=== PATIENT | female | born 1965 ===

== ENCOUNTER 2016-09-27 19:11 | Emergency (ER) | payer OTHER ==
[2016-09-27 19:11] VITALS: BMI 25.7
[2016-09-27 19:24] VITALS: RESP 18
[2016-09-27] MEDS ORDERED: Albuterol-Ipratrop 3 mg / 0.5 (3 ml) UD ONE (19:44)
[2016-09-27] MEDS ORDERED: Promethazine/Cod 6.25mg-10mg/5ml Syr UD PO STA (19:52)
[2016-09-27] MEDS ORDERED: Promethazine/Cod 6.25mg-10mg/5ml Syr UD ONE (20:03)
[2016-09-27] MEDS: Albuterol-Ipratrop 3 mg / 0.5 (3 ml) UD IH SCH (20:06)
--- NOTE | 2016-09-27 20:18 | C.PDOC ---
History Of Present Illness 51 y/o female who complains of cough, pleuritic chest pain, sore throat, and body aches for the last three days. Today she complains of some dyspnea and chest tightness which is new and concerning to her. She denies any fever, chills , recent travel, sick contacts, or other complaints. Time Seen by Provider: 09/27/16 19:34 Chief Complaint (Nursing): Cough, Cold, Congestion History Per: Patient Onset/Duration Of Symptoms: Days (4) Current Symptoms Are (Timing): Worse Location Of Pain: Throat Sick Contacts (Context): None Associated Symptoms: Cough Severity: Moderate Recent travel outside of the [place]: No Additional History Per: Patient Past Medical History Vital Signs: Last Vital Signs Temp 99.3 F 09/27/16 20:42 Pulse 76 09/27/16 20:42 Resp 18 09/27/16 20:42 BP 97/54 L 09/27/16 20:42 Pulse Ox 96 09/27/16 21:06 - Medical History PMH: CAD (with pacemaker), Cardia Arrhythmia, CHF, HTN, Pneumonia Denies: Chronic Kidney Disease Surgical History: Pacemaker, - [facility] Procedures EXCISION OF DUODENUM, ENDO, DIAGN (08/07/15) EXCISION OF STOMACH, ENDO, DIAGN (08/07/15) INSPECTION OF LOWER INTESTINAL TRACT, ENDO (08/07/15) MEASURE OF CARDIAC SAMPL & PRESSURE, L HEART, PERC APPROACH (11/27/15) PLAIN RADIOGRAPHY OF LEFT HEART USING OTHER CONTRAST (11/27/15) PLAIN RADIOGRAPHY OF MULT COR ART USING OTH CONTRAST (11/27/15) Family History: States: Unknown Family Hx - Social History Hx Tobacco Use: No Hx Alcohol Use: No Hx Substance Use: No - Immunization History Hx Tetanus Toxoid Vaccination: No Hx Influenza Vaccination: Yes Hx Pneumococcal Vaccination: No Review Of Systems Except As Marked, All Systems Reviewed And Found Negative. Constitutional: Negative for: Fever, Chills ENT: Positive for: Throat Pain Cardiovascular: Positive for: Chest Pain Respiratory: Positive for: Cough, Shortness of Breath Musculoskeletal: Positive for: Other (myalgias) Physical Exam - Physical Exam Appears: Well, No Acute Distress Skin: Normal Color, Warm, Dry Eye(s): bilateral: Normal Inspection, PERRL, EOMI Nose: Normal Throat: Normal Neck: Normal Chest: No Tenderness Cardiovascular: Rhythm Regular Respiratory: Rhonchi, Wheezing (expiratory) Gastrointestinal/Abdominal: Normal Exam Back: Normal Inspection Extremity: Normal ROM ED Course And Treatment O2 Sat by Pulse Oximetry: 96 (RA) Pulse Ox Interpretation: Normal - Radiology CXR: Interpreted by Me, Viewed By Me CXR Interpretation: Yes: No Acute Disease. No: Infiltrates Reassessment Condition: Improved Medical Decision Making Medical Decision Making: Initial Plan: - Analgesia - CXR - Duo Neb x2 On reevaluation, the patient is resting comfortably and doing well, in NAD, lungs clear. Pt reports improvement of symptoms.. CXR reviewed and is unremarkable. Patient is medically stable for discharge. All questions answered to the patient's satisfaction. She should follow up with her PMD in the next few days, or return to the ED with any new/worsening concerns. Disposition Doctor Will See Patient In The: ED Counseled Patient/Family Regarding: Studies Performed, Diagnosis - Disposition Referrals: PMD, PMD [Other] Disposition: HOME/ ROUTINE Disposition Time: 21:02 Condition: STABLE Additional Instructions: Increase PO fluids Take all medications prescribed May take tylenol or advil for pain Follow up with PMD Return to ER if worse Prescriptions: Albuterol HFA [Ventolin HFA 90 mcg/actuation (8 g)] 2 puff IH [id number] #1 inh Azithromycin [Zithromax] 250 mg PO DAILY #6 tab Benzonatate [Tessalon Perles] 100 mg PO TID #20 sgl predniSONE [Prednisone] 40 mg PO DAILY #10 tab Instructions: Acute Bronchitis (ED) - Clinical Impression Clinical Impression: Bronchitis - Scribe Statement The provider has reviewed the documentation as recorded by the Scribe Kellen Crawford
[2016-09-27 20:43] VITALS: BP 97/54; PULSE 76; TEMP 99.3
[2016-09-27 20:51] VITALS: O2SAT 96
--- NOTE | 2016-09-28 10:37 | RAD ---
HISTORY: cough, chest pain COMPARISON: 04/04/2016 TECHNIQUE: Chest PA and lateral FINDINGS: LUNGS: Blunted bilateral costophrenic angles which may represent trace effusions and or mild pleural thickening. Clinical correlation. Mild venous congestion. Minimal atelectatic changes in the right midlung zone. PLEURA: As above. CARDIOVASCULAR: Left-sided pacemaker. Tortuous aorta. OSSEOUS STRUCTURES: No significant abnormalities. VISUALIZED UPPER ABDOMEN: Normal. OTHER FINDINGS: None. IMPRESSION: Blunted bilateral costophrenic angles which may represent trace effusions and or mild pleural thickening. Clinical correlation. Mild venous congestion. Minimal atelectatic changes in the right midlung zone.
== END 2016-09-27 21:12 | disposition home or self-care (01) ==
LOC: C.ER 19:11
DX: J40 Bronchitis, not specified as acute or chronic (principal)

== ENCOUNTER 2017-10-16 17:43 | Observation (INO) | payer OTHER ==
[2017-10-16 17:43] VITALS: BMI 33.1
[2017-10-16 18:42] LABS: BASO % 0.4 % (0.0-2.0); EOS # 0.1 K/uL (0.0-0.7); EOS % 2.3 % (0.0-4.0); HEMOGLOBIN 13.9 g/dL (11.0-16.0); LYMPH # 1.3 K/uL (1.0-4.3); LYMPH % 24.5 % (20.0-40.0); MEAN CELL VOLUME 90.3 fL (81.0-99.0); MEAN CORPUSCULAR HGB CONC 34.3 g/dL (33.0-37.0); MEAN PLATELET VOLUME 10.7 fL (7.2-11.7); MONO # 0.3 K/uL (0.0-0.8); MONO % 5.8 % (0.0-10.0); NEUT # 3.6 K/uL (1.8-7.0); NRBC % 0.1 % (0.0-2.0); RBC 4.48 Mil/uL (3.80-5.20); RED CELL DISTRIBUTION WIDTH 13.8 % (11.5-14.5); WHITE BLOOD COUNT 5.4 K/uL (4.8-10.8)
[2017-10-16 18:51] LABS: PROTHROMBIN TIME 11.2 SECONDS (9.7-12.2)
[2017-10-16 18:54] LABS: SQUAMOUS EPITHIAL 1 /hpf (0-5); URINE BACTERIA OCC (<OCC); URINE BILIRUBIN NEGATIVE (NEGATIVE); URINE BLOOD NEGATIVE (NEGATIVE); URINE CLARITY Clear (Clear); URINE COLOR Colorless (YELLOW); URINE GLUCOSE (UA) NORMAL (Normal); URINE LEUKOCYTE ESTERASE 1+ Leu/uL (Negative); URINE PROTEIN NEGATIVE (NEGATIVE); URINE UROBILINOGEN NORMAL mg/dL (0.2-1.0)
[2017-10-16 18:55] LABS: HCG,QUALITATIVE URINE NEGATIVE (NEGATIVE)
[2017-10-16 18:56] LABS: ALB/GLOB RATIO 1.2 (1.0-2.1); ALBUMIN 3.9 g/dL (3.5-5.0); ALT/SGPT 30 U/L (9-52); AST/SGOT 36 U/L (14-36); BLOOD UREA NITROGEN 13 mg/dL (7-17); CALCIUM 9.4 mg/dl (8.6-10.4); GFR AFRICAN-AMERICAN > 60; GFR NON-AFRICAN AMERICAN > 60
[2017-10-16 19:07] LABS: B-TYPE NATRIURETIC PEPTIDE 617 pg/mL (0-900)
--- NOTE | 2017-10-16 20:27 | C.PDOC ---
History Of Present Illness 52 y/o female with history of HTN and CAD presents to ED with c/o mid sternal pressure chest pain and mild headache developed earlier today. Patient denies sob, palpitations, nausea, leg swelling, vision changes or any other complaints at this time. Time Seen by Provider: 10/16/17 18:05 Chief Complaint (Nursing): Chest Pain History Per: Patient History/Exam Limitations: no limitations Onset/Duration Of Symptoms: Days Current Symptoms Are (Timing): Still Present Quality: "Pain" Past Medical History Reviewed: Historical Data, Nursing Documentation, Vital Signs Vital Signs: Last Vital Signs Temp 97.9 F 10/18/17 15:55 Pulse 65 10/18/17 17:22 Resp 20 10/18/17 15:55 BP 107/72 10/18/17 17:22 Pulse Ox 98 10/18/17 17:06 - Medical History PMH: CAD (with pacemaker), Cardia Arrhythmia, CHF, HTN, Pneumonia Surgical History: Pacemaker, - [facility] Procedures EXCISION OF DUODENUM, ENDO, DIAGN (08/07/15) EXCISION OF STOMACH, ENDO, DIAGN (08/07/15) INSPECTION OF LOWER INTESTINAL TRACT, ENDO (08/07/15) MEASURE OF CARDIAC SAMPL & PRESSURE, L HEART, PERC APPROACH (11/27/15) PLAIN RADIOGRAPHY OF LEFT HEART USING OTHER CONTRAST (11/27/15) PLAIN RADIOGRAPHY OF MULT COR ART USING OTH CONTRAST (11/27/15) Family History: States: No Known Family Hx - Social History Hx Tobacco Use: No Hx Alcohol Use: No Hx Substance Use: No - Immunization History Hx Tetanus Toxoid Vaccination: No Hx Influenza Vaccination: Yes Hx Pneumococcal Vaccination: No Review Of Systems Constitutional: Negative for: Fever, Chills Cardiovascular: Positive for: Chest Pain. Negative for: Palpitations, Light Headedness Respiratory: Negative for: Cough, Shortness of Breath Gastrointestinal: Negative for: Nausea, Vomiting Skin: Negative for: Rash Neurological: Negative for: Weakness, Numbness Physical Exam - Physical Exam Appears: Non-toxic, No Acute Distress Skin: Warm, Dry, No Rash Head: Atraumatic, Normacephalic Eye(s): bilateral: Normal Inspection Oral Mucosa: Moist Neck: Normal ROM, Supple Cardiovascular: Rhythm Regular Respiratory: Normal Breath Sounds, No Rales, No Rhonchi, No Wheezing Gastrointestinal/Abdominal: Soft, No Tenderness, No Guarding, No Rebound Extremity: Normal ROM, No Pedal Edema, Capillary Refill (<2 seconds) Neurological/Psych: Oriented x3, Normal Speech, Normal Cognition ED Course And Treatment - Laboratory Results Result Diagrams: 10/18/17 07:40 10/18/17 07:40 O2 Sat by Pulse Oximetry: 96 (RA) Pulse Ox Interpretation: Normal Medical Decision Making Medical Decision Making: cp r/o acs- labs imaging pending trop neg. pain impreved s/p asa. typical pain. h/o of cad. discussed with dr boles accepts for admission Disposition - Disposition Disposition: HOSPITALIZED Disposition Time: 07:00 Condition: GOOD - Clinical Impression Clinical Impression: Chest pain - Scribe Statement The provider has reviewed the documentation as recorded by the Scribe Jason Silva All medical record entries made by the Scribe were at my direction and personally dictated by me. I have reviewed the chart and agree that the record accurately reflects my personal performance of the history, physical exam, medical decision making, and the department course for this patient. I have also personally directed, reviewed, and agree with the discharge instructions and disposition. Decision To Admit - Pt Status Changed To: Hospital Disposition Of: Observation - . Bed Request Type: Telemetry Admitting Physician: Kendell Boles Patient Diagnosis: Chest pain
--- NOTE | 2017-10-16 22:42 | CP.PCM.HP ---
History of Present Illness - History of Present Illness History of Present Illness: This is a 52 yo female, originally from [facility], with past medical hx of CAD, HTN, AICD/pacemaker, lupus, [place], lupus nephritis, presenting to hospital with chief complaint of chest pain. Pt is accompanied by daughter. Pt says she started to develop chest pain at 10 am this morning. She was lying in bed. It is a pressure sensation, 6/10. At about 3 30 , she also started to feel dizzy and pain was getting worse so she came to ER. Denies fevers and chills. Says pain is substernal. Says it happened before this past sunday with some radiation to left arm, but went away after 10 minutes. Today the pain has been constant. She did not take anything for it at home, but she says asa in the ER made it better. The pain happened at rest and with exertion. She says it is not reproducible. She also reports some sob and says she feels sob after walking only 1/2 block. She reports recent cardiac cath and stress test. She also reports headache. She denies sick contacts. She denies recent travel. PMD: [place] Specialists: Cardiology: Mike Patel PMH: HTN, CAD, lupus, cardiac arrhythmia PSH: AICD/pacemaker, C section Allergies: NKDA FH: Denies Home meds: asa 81 mg po daily, enalapril 5 mg po daily, cellcept, plavix 75 mg po daily, coreg 25 mg po bid, pepcid 20 mg po daily, lasix 40 mg po daily Social hx: Non smoker. Does not drink. Denies drug use. Born in [facility]. Lives in [place]. Does not work. Fully mobile and able to complete all ADLs. Insurance: [facility] Recent ER visits/hospitalizations: Seen in September 2016 in ER for acute bronchitis and discharged home. Present on Admission - Present on Admission Any Indicators Present on Admission: No History of DVT/PE: No History of Uncontrolled Diabetes: No Urinary Catheter: No Decubitus Ulcer Present: No Review of Systems - Constitutional Constitutional: absent: Chills, Fever - EENT Eyes: absent: Blurred Vision, Change in Vision Nose/Mouth/Throat: absent: Sore Throat, Neck Pain - Cardiovascular Cardiovascular: Chest Pain, Chest Pain at Rest, Dyspnea - Respiratory Respiratory: Dyspnea, Dyspnea on Exertion. absent: Cough - Gastrointestinal Gastrointestinal: Nausea. absent: Abdominal Pain, Vomiting - Genitourinary Genitourinary: absent: Change in Urinary Stream, Difficulty Urinating - Musculoskeletal Musculoskeletal: Arthralgias. absent: Numbness, Tingling - Integumentary Integumentary: absent: Bleeding Lesions, Changing Lesions - Neurological Neurological: Dizziness, Headaches. absent: Syncope - Psychiatric Psychiatric: absent: Hallucinations, Visual Hallucinations - Endocrine Endocrine: absent: Palpitations - Hematologic/Lymphatic Hematologic: absent: Easy Bleeding, Easy Bruising Past Patient History - Infectious Disease Hx of Infectious Diseases: None - Tetanus Immunizations Tetanus Immunization: Unknown - Past Medical History & Family History Past Medical History?: Yes - Past Social History Smoking Status: Never Smoked Chewing Tobacco Use: No Cigar Use: No Alcohol: None Drugs: Denies Home Situation {Lives}: With Family Domestic Violence: Negative - CARDIAC Hx Cardia Arrhythmia: Yes Hx Congestive Heart Failure: Yes Hx Hypertension: Yes Hx Pacemaker: Yes - PULMONARY Hx Pneumonia: Yes - NEUROLOGICAL Hx Neurological Disorder: No - HEENT Hx HEENT Problems: No - RENAL Hx Chronic Kidney Disease: No - ENDOCRINE/METABOLIC Hx Systemic Lupus Erythematosus: Yes (diag 5 yrs ago) - HEMATOLOGICAL/ONCOLOGICAL Hx Blood Disorders: No - INTEGUMENTARY Hx Dermatological Problems: No - MUSCULOSKELETAL/RHEUMATOLOGICAL Hx Falls: No - GASTROINTESTINAL Hx Gastrointestinal Disorders: No - GENITOURINARY/GYNECOLOGICAL Hx Genitourinary Disorders: No - PSYCHIATRIC Hx Substance Use: No - SURGICAL HISTORY Hx Surgeries: Yes () Hx Section: Yes - ANESTHESIA Hx Anesthesia: Yes Hx Anesthesia Reactions: No Meds Allergies/Adverse Reactions: Allergies Allergy/AdvReac Type Severity Reaction Status Date / Time No Known Allergies Allergy Verified 10/16/17 17:48 Physical Exam - Constitutional Appears: Non-toxic, No Acute Distress - Head Exam Head Exam: ATRAUMATIC, NORMAL INSPECTION, NORMOCEPHALIC - Eye Exam Eye Exam: EOMI - ENT Exam ENT Exam: Mucous Membranes Moist - Neck Exam Neck exam: Positive for: Full Rom, Normal Inspection - Respiratory Exam Respiratory Exam: NORMAL BREATHING PATTERN. absent: Respiratory Distress - Cardiovascular Exam Cardiovascular Exam: REGULAR RHYTHM, +S1, +S2 - GI/Abdominal Exam GI & Abdominal Exam: Normal Bowel Sounds, Soft. absent: Tenderness - Extremities Exam Extremities exam: Positive for: full ROM, normal inspection - Back Exam Back exam: NORMAL INSPECTION - Neurological Exam Neurological exam: Alert, CN II-XII Intact, Oriented x3 - Psychiatric Exam Psychiatric exam: Normal Affect, Normal Mood - Skin Skin Exam: Dry, Intact, Normal Color, Warm Results - Vital Signs Recent Vital Signs: Last Vital Signs Temp 98.2 F 10/16/17 19:43 Pulse 59 L 10/16/17 19:43 Resp 20 10/16/17 19:43 BP 117/82 10/16/17 19:43 Pulse Ox 96 10/16/17 20:27 - Labs Result Diagrams: 10/16/17 18:38 10/16/17 18:38 Labs: Laboratory Results - last 24 hr 10/16/17 10/16/17 10/16/17 18:38 18:38 18:38 WBC 5.4 RBC 4.48 Hgb 13.9 Hct 40.5 MCV 90.3 D MCH 31.0 MCHC 34.3 RDW 13.8 Plt Count 183 MPV 10.7 Neut % (Auto) 67.0 Lymph % (Auto) 24.5 [place] % (Auto) 5.8 Eos % (Auto) 2.3 Baso % (Auto) 0.4 Neut # (Auto) 3.6 Lymph # (Auto) 1.3 [place] # (Auto) 0.3 Eos # (Auto) 0.1 Baso # (Auto) 0.0 PT 11.2 INR 1.0 APTT 38 H Sodium 144 Potassium 3.9 Chloride 104 Carbon Dioxide 26 Anion Gap 17 BUN 13 Creatinine 0.8 Est GFR ( Amer) > 60 Est GFR (Non-Af Amer) > 60 Random Glucose 102 Calcium 9.4 Total Bilirubin 1.0 AST 36 D ALT 30 Alkaline Phosphatase 62 Troponin I < 0.0120 NT-Pro-B Natriuret Pep 617 Total Protein 7.2 Albumin 3.9 Globulin 3.4 Albumin/Globulin Ratio 1.2 Urine Color Urine Clarity Urine pH Ur Specific [place] Urine Protein Urine Glucose (UA) Urine Ketones Urine Blood Urine Nitrate Urine Bilirubin Urine Urobilinogen Ur Leukocyte Esterase Urine WBC (Auto) Urine RBC (Auto) Ur Squamous Epith Cells Ur Transition Epith Cell Urine Bacteria Urine HCG, Qual 10/16/17 18:45 WBC RBC Hgb Hct MCV MCH MCHC RDW Plt Count MPV Neut % (Auto) Lymph % (Auto) [place] % (Auto) Eos % (Auto) Baso % (Auto) Neut # (Auto) Lymph # (Auto) [place] # (Auto) Eos # (Auto) Baso # (Auto) PT INR APTT Sodium Potassium Chloride Carbon Dioxide Anion Gap BUN Creatinine Est GFR ( Amer) Est GFR (Non-Af Amer) Random Glucose Calcium Total Bilirubin AST ALT Alkaline Phosphatase Troponin I NT-Pro-B Natriuret Pep Total Protein Albumin Globulin Albumin/Globulin Ratio Urine Color Colorless Urine Clarity Clear Urine pH 6.0 Ur Specific [place] 1.001 L Urine Protein Negative Urine Glucose (UA) Normal Urine Ketones Negative Urine Blood Negative Urine Nitrate Negative Urine Bilirubin Negative Urine Urobilinogen Normal Ur Leukocyte Esterase 1+ H Urine WBC (Auto) 7 H Urine RBC (Auto) < 1 Ur Squamous Epith Cells 1 Ur Transition Epith Cell < 1 Urine Bacteria Occ H Urine HCG, Qual Negative Assessment & Plan - Assessment and Plan (Free Text) Assessment: This is a 52 yo female, originally from [facility], with past medical hx of HTN, CAD presenting with 1. Chest pain, r/o ACS -pt condition: fair -admit to telemetry -initial ekg shows sinus rhythm with some ischemic changes, flipped t waves, no st elevations -CXR shows AICD in place -trops x 3 -1st set negative -coreg 25 mg po bid -heart healthy diet -crestor 5 mg po hs -cardiology consult. Dr. Chang. receusebio appreciated. -urine hcg negative -urine drug screen negative -cath in 2016 showed chronic total occlusion of mid LAD 2. Dizziness -head ct pending -zofran 4 mg iv stat -meclizine 25 mg po daily prn dizziness 3. hx of lupus -hold home cellcept 4. hx of htn -restart enalapril 5 mg po daily 5. headache -tylenol 650 mg po q 6 hrs prn headache 6. GI/DVT ppx -heart healthy diet -pepcid 20 mg bid -scds -discussed with Dr. Arriaga
[2017-10-17 01:35] LABS: CK-MB 0.62 ng/mL (0.0-3.38)
[2017-10-17 07:45] LABS: BASO % 0.4 % (0.0-2.0); EOS # 0.1 K/uL (0.0-0.7); EOS % 3.4 % (0.0-4.0); HEMOGLOBIN 13.6 g/dL (11.0-16.0); LYMPH # 1.3 K/uL (1.0-4.3); LYMPH % 30.2 % (20.0-40.0); MEAN CELL VOLUME 90.5 fL (81.0-99.0); MEAN CORPUSCULAR HEMOGLOBIN 31.2 pg (27.0-31.0); MEAN CORPUSCULAR HGB CONC 34.5 g/dL (33.0-37.0); MEAN PLATELET VOLUME 10.5 fL (7.2-11.7); MONO # 0.3 K/uL (0.0-0.8); MONO % 6.9 % (0.0-10.0); NEUT # 2.5 K/uL (1.8-7.0); NEUT % 59.1 % (50.0-75.0); NRBC % 0.1 % (0.0-2.0); RBC 4.34 Mil/uL (3.80-5.20); RED CELL DISTRIBUTION WIDTH 13.6 % (11.5-14.5); WHITE BLOOD COUNT 4.3 K/uL (4.8-10.8)
--- NOTE | 2017-10-17 07:57 | CP.PCM.PN ---
<Jennifer Cohn - Last Filed: 10/17/17 11:47> Subjective - Date & Time of Evaluation Date of Evaluation: 10/17/17 Time of Evaluation: 09:00 - Subjective Subjective: Medicine Note for Hospitalist Service - Dr. Talat Christensen Patient was seen and examined at bedside. Patient reported her chest pain has resolved. Admitted to a headache. Denied fever, chills, chest pain, SOB, abdominal pain, n/v/d/c, or urinary symptoms. Objective - Vital Signs/Intake and Output Vital Signs (last 24 hours): Temp Pulse Resp BP Pulse Ox 97.7 F 64 20 123/82 98 10/16/17 23:20 10/17/17 04:36 10/16/17 23:20 10/16/17 23:20 10/16/17 23:20 Intake and Output: 10/17/17 10/17/17 06:59 18:59 Intake Total 120 Balance 120 - Medications Medications: Current Medications Acetaminophen (Tylenol 325mg Tab) 650 mg PO Q6 PRN PRN Reason: Headache Last Admin: 10/17/17 00:00 Dose: 650 mg Aspirin (Ecotrin) 81 mg PO DAILY LINN Carvedilol (Coreg) 25 mg PO BID [facility] Clopidogrel Bisulfate (Plavix) 75 mg PO DAILY [facility] Enalapril Maleate (Vasotec) 5 mg PO DAILY [facility] Enoxaparin Sodium (Lovenox) 40 mg SC DAILY [facility] Famotidine (Pepcid) 20 mg PO BID [facility] Furosemide (Lasix) 40 mg PO DAILY [facility] Meclizine HCl (Antivert) 12.5 mg PO DAILY PRN PRN Reason: Dizziness Last Admin: 10/16/17 22:11 Dose: 12.5 mg Rosuvastatin Calcium (Crestor) 10 mg PO HS LINN - Labs Labs: 10/17/17 07:23 10/16/17 18:38 PT 11.2 SECONDS (9.7-12.2) 10/16/17 18:38 INR 1.0 10/16/17 18:38 APTT 38 SECONDS (21-34) H 10/16/17 18:38 - Constitutional Appears: No Acute Distress - Head Exam Head Exam: NORMAL INSPECTION, NORMOCEPHALIC - Eye Exam Eye Exam: EOMI, Normal appearance, PERRL. absent: Nystagmus, Scleral icterus Pupil Exam: NORMAL ACCOMODATION - ENT Exam ENT Exam: Mucous Membranes Moist - Neck Exam Neck Exam: Normal Inspection - Respiratory Exam Respiratory Exam: Clear to Ausculation Bilateral, NORMAL BREATHING PATTERN. absent: Decreased Breath Sounds, Wheezes - Cardiovascular Exam Cardiovascular Exam: REGULAR RHYTHM - GI/Abdominal Exam GI & Abdominal Exam: Soft, Normal Bowel Sounds. absent: Distended, Tenderness - Extremities Exam Extremities Exam: Normal Inspection. absent: Pedal Edema, Tenderness - Neurological Exam Neurological Exam: Alert, Awake, Oriented x3 - Psychiatric Exam Psychiatric exam: Normal Affect, Normal Mood - Skin Skin Exam: Dry, Intact, Normal Color, Warm Assessment and Plan - Assessment and Plan (Free Text) Assessment: This is a 52 year old female with PMHx SLE with lupus nephritis, HTN, History NSTEMI, History of CAD with 100% occlusion of LAD - was not a candidate for CABG, Systolic Heart Failure with ?? LVEF s/p AICD 03/2016 admitted for chest pain r/o ACS. Patient follows up with [facility] for Transportation Supervisor appointment in October. Last follow up with 06/2017 where she had an ECHO done was has been unchanged since previous study as per patient. Plan: Chest Pain r/o ACS History of Systolic Heart Failure s/p AICD (03/2016) Hx NSTEMI;; History of CAD with 100% occlusion of LAD - was not a candidate for CABG (11/2015) - Cardiology consulted - Dr. Chang - help appreciated - Patient reports recent dyspnea on exertion, orthopnea, and generalized fatigue - CXR: Cardiomegaly - EKG: Sinus kianna @56BPM with no [place] prolongation - DRU x 3 negative - BNP: 617 Management: - Resumed home medications: ASA, Plavix, Coreg 25 BID, Vasotec 5 daily, Lasix 40mg daily, Crestor 10mg QHS - 02/2016 ECHO: LVEF 35-40%, LV moderately dilated, LV systolic function is severely impaired - As per patient she had an ECHO 06/2017 with Transportation Supervisor from [facility] - unchanged from previous ECHO - F/U Repeat ECHO Hx Hypertension - Resumed home medications: ASA, Plavix, Coreg 25 BID, Vasotec 5 daily, Lasix 40mg daily, Crestor 10mg QHS - HgA1C 5.6, Lipid panel - WNL Hx SLE with lupus nephritis - Currently not on any steroids, denied any recent flares - Follows closely with Dr. Patel next appointment is in October 2017 Prophylactic measures - Pepcid - Lovenox Disposition: Pending ECHO and cardiology reccs. DW Dr. Talat Christensen, Jennifer Cohn DO, PGY-1 <Talat Christensen J - Last Filed: 10/17/17 18:59> Objective - Vital Signs/Intake and Output Vital Signs (last 24 hours): Temp Pulse Resp BP Pulse Ox 98 F 53 L 18 90/60 L 99 10/17/17 15:52 10/17/17 15:52 10/17/17 15:52 10/17/17 15:52 10/17/17 15:52 Intake and Output: 10/17/17 10/17/17 06:59 18:59 Intake Total 120 Balance 120 - Medications Medications: Current Medications Acetaminophen (Tylenol 325mg Tab) 650 mg PO Q6 PRN PRN Reason: Pain, Mild (1-3) Acetaminophen/Butalbital/Caffeine (Fioricet) 1 tab PO Q6 PRN PRN Reason: Headache Aspirin (Ecotrin) 81 mg PO DAILY [facility] Last Admin: 10/17/17 10:22 Dose: 81 mg Carvedilol (Coreg) 25 mg PO BID [facility] Last Admin: 10/17/17 10:18 Dose: 25 mg Clopidogrel Bisulfate (Plavix) 75 mg PO DAILY [facility] Last Admin: 10/17/17 10:19 Dose: 75 mg Enalapril Maleate (Vasotec) 5 mg PO DAILY [facility] Last Admin: 10/17/17 10:18 Dose: 5 mg Enoxaparin Sodium (Lovenox) 40 mg SC DAILY [facility] Last Admin: 10/17/17 10:20 Dose: 40 mg Famotidine (Pepcid) 20 mg PO BID [facility] Furosemide (Lasix) 40 mg IVP DAILY [facility] Last Admin: 10/17/17 10:19 Dose: 40 mg Rosuvastatin Calcium (Crestor) 10 mg PO HS [facility] - Labs Labs: 10/17/17 07:23 10/17/17 07:23 PT 11.2 SECONDS (9.7-12.2) 10/16/17 18:38 INR 1.0 10/16/17 18:38 APTT 38 SECONDS (21-34) H 10/16/17 18:38 Attending/Attestation - Attestation I have personally seen and examined this patient.: Yes I have fully participated in the care of the patient.: Yes I have reviewed all pertinent clinical information, including history, physical exam and plan: Yes Notes (Text): 10/17/17 18:59 Patient was seen and examined at 2:30 PM Exam, assessment and plan were gone over with the resident. She is for LexiScan Stress Test in morning 10/18/17. NPO after midnight. Talat Christensen D.O.
[2017-10-17 08:13] LABS: ALB/GLOB RATIO 1.2 (1.0-2.1); ALBUMIN 3.9 g/dL (3.5-5.0); ALT/SGPT 22 U/L (9-52); AST/SGOT 31 U/L (14-36); BLOOD UREA NITROGEN 10 mg/dL (7-17); GFR AFRICAN-AMERICAN > 60; GFR NON-AFRICAN AMERICAN > 60; HDL CHOLESTEROL 33 mg/dL (30-70); LDL CHOLESTEROL 93 mg/dL (0-129)
--- NOTE | 2017-10-17 08:18 | CT ---
PROCEDURE: CT HEAD WITHOUT CONTRAST. HISTORY: dizziness COMPARISON: 08/05/2015 TECHNIQUE: Axial computed tomography images were obtained through the head/brain without intravenous contrast. Radiation dose: Total exam DLP = 748.48 mGy-cm. This CT exam was performed using one or more of the following dose reduction techniques: Automated exposure control, adjustment of the mA and/or kV according to patient size, and/or use of iterative reconstruction technique. FINDINGS: HEMORRHAGE: No intracranial hemorrhage. BRAIN: No mass effect or edema. No atrophy or chronic microvascular ischemic changes. VENTRICLES: Unremarkable. No hydrocephalus. CALVARIUM: Unremarkable. PARANASAL SINUSES: Unremarkable as visualized. No significant inflammatory changes. MASTOID AIR CELLS: Unremarkable as visualized. No inflammatory changes. OTHER FINDINGS: None. IMPRESSION: Normal CT of the Head. No intracranial mass, hemorrhage or evidence of acute
[2017-10-17] MEDS ORDERED: Apap-Butalbital-Caffeine 325-50-40mg Tab PO STA (09:46)
--- NOTE | 2017-10-17 09:49 | RAD ---
PROCEDURE: CHEST RADIOGRAPH, 1 VIEW HISTORY: Chest pain COMPARISON: 09/27/2016. FINDINGS: LUNGS: The lungs are well inflated and clear. PLEURA: No pneumothorax or pleural fluid seen. CARDIOVASCULAR: The heart is normal in size. There is a left-sided AICD. OSSEOUS STRUCTURES: No significant abnormalities. VISUALIZED UPPER ABDOMEN: Normal. OTHER FINDINGS: None. IMPRESSION: No active pulmonary disease.
[2017-10-17] MEDS ORDERED: Enoxaparin 40 mg Syringe SC SCH (10:00)
[2017-10-17] MEDS ORDERED: Apap-Butalbital-Caffeine 325-50-40mg Tab PO PRN (11:52)
--- NOTE | 2017-10-17 16:55 | CARD ---
APPROVED REPORT EKG Measurement Heart [id number] <Conclusion> Sinus bradycardia Minimal voltage criteria for LVH, may be normal variant Possible Inferior infarct, age undetermined T wave abnormality, consider anterolateral ischemia Abnormal ECG
--- NOTE | 2017-10-17 16:56 | CARD ---
APPROVED REPORT EKG Measurement Heart [id number] <Conclusion> Sinus bradycardia Minimal voltage criteria for LVH, may be normal variant Inferior infarct, age undetermined Anterior infarct, age undetermined T wave abnormality, consider [place]-lateral ischemia Abnormal ECG
[2017-10-17 20:56] LABS: BARBITURATES, UR NEGATIVE (NEGATIVE); BENZODIAZEPINES, UR NEGATIVE (NEGATIVE); OPIATES, UR NEGATIVE (NEGATIVE); PHENCYCLIDINE, UR NEGATIVE (NEGATIVE)
[2017-10-18 01:03] VITALS: RESP 20
--- NOTE | 2017-10-18 04:57 | CP.PCM.CON ---
History of Present Illness - History of Present Illness History of Present Illness: CC: Chest Pain This is a 52 yo female, originally from [place] [facility], with past medical hx of CAD, HTN, AICD/pacemaker, lupus, [place], lupus nephritis, presenting to hospital with chief complaint of chest pain. Pt is accompanied by daughter. Pt says she started to develop chest pain at 10 am this morning. She was lying in bed. It is a pressure sensation, 6/10. At about 3 30 , she also started to feel dizzy and pain was getting worse so she came to ER. Denies fevers and chills. Says pain is substernal. Says it happened before this past sunday with some radiation to left arm, but went away after 10 minutes. Today the pain has been constant. She did not take anything for it at home, but she says asa in the ER made it better. The pain happened at rest and with exertion. She says it is not reproducible. She also reports some sob and says she feels sob after walking only 1/2 block. She reports recent cardiac cath and stress test. She also reports headache. She denies sick contacts. She denies recent travel. PMD: [place] Specialists: Cardiology: Mike Patel PMH: HTN, CAD, lupus, cardiac arrhythmia PSH: AICD/pacemaker, C section Allergies: NKDA FH: Denies Home meds: asa 81 mg po daily, enalapril 5 mg po daily, cellcept, plavix 75 mg po daily, coreg 25 mg po bid, pepcid 20 mg po daily, lasix 40 mg po daily Social hx: Non smoker. Does not drink. Denies drug use. Born in [facility]. Lives in [place]. Does not work. Fully mobile and able to complete all ADLs. Insurance: Lia care Recent ER visits/hospitalizations: Seen in September 2016 in ER for acute bronchitis and discharged home. Review of Systems - Constitutional Constitutional: absent: Chills, Fever - EENT Eyes: absent: Blurred Vision, Change in Vision Nose/Mouth/Throat: absent: Sore Throat, Neck Pain - Cardiovascular Cardiovascular: Chest Pain, Chest Pain at Rest, Dyspnea - Respiratory Respiratory: Dyspnea, Dyspnea on Exertion. absent: Cough - Gastrointestinal Gastrointestinal: Nausea. absent: Abdominal Pain, Vomiting - Genitourinary Genitourinary: absent: Change in Urinary Stream, Difficulty Urinating - Musculoskeletal Musculoskeletal: Arthralgias. absent: Numbness, Tingling - Integumentary Integumentary: absent: Bleeding Lesions, Changing Lesions - Neurological Neurological: Dizziness, Headaches. absent: Syncope - Psychiatric Psychiatric: absent: Hallucinations, Visual Hallucinations - Endocrine Endocrine: absent: Palpitations - Hematologic/Lymphatic Hematologic: absent: Easy Bleeding, Easy Bruising Physical Exam - Constitutional Appears: Non-toxic, No Acute Distress - Head Exam Head Exam: ATRAUMATIC, NORMAL INSPECTION, NORMOCEPHALIC - Eye Exam Eye Exam: EOMI - ENT Exam ENT Exam: Mucous Membranes Moist - Neck Exam Neck exam: Positive for: Full Rom, Normal Inspection - Respiratory Exam Respiratory Exam: NORMAL BREATHING PATTERN. absent: Respiratory Distress - Cardiovascular Exam Cardiovascular Exam: REGULAR RHYTHM, +S1, +S2 - GI/Abdominal Exam GI & Abdominal Exam: Normal Bowel Sounds, Soft. absent: Tenderness - Extremities Exam Extremities exam: Positive for: full ROM, normal inspection - Back Exam Back exam: NORMAL INSPECTION - Neurological Exam Neurological exam: Alert, CN II-XII Intact, Oriented x3 - Psychiatric Exam Psychiatric exam: Normal Affect, Normal Mood - Skin Skin Exam: Dry, Intact, Normal Color, Warm Past Patient History - Infectious Disease Hx of Infectious Diseases: None - Tetanus Immunizations Tetanus Immunization: Unknown - Past Medical History & Family History Past Medical History?: Yes - Past Social History Smoking Status: Never Smoked Chewing Tobacco Use: No Cigar Use: No Alcohol: None Drugs: Denies Home Situation {Lives}: With Family Domestic Violence: Negative - CARDIAC Hx Cardia Arrhythmia: Yes Hx Congestive Heart Failure: Yes Hx Hypertension: Yes Hx Pacemaker: Yes - PULMONARY Hx Pneumonia: Yes - NEUROLOGICAL Hx Neurological Disorder: No - HEENT Hx HEENT Problems: No - RENAL Hx Chronic Kidney Disease: No - ENDOCRINE/METABOLIC Hx Systemic Lupus Erythematosus: Yes (diag 5 yrs ago) - HEMATOLOGICAL/ONCOLOGICAL Hx Blood Disorders: No - INTEGUMENTARY Hx Dermatological Problems: No - MUSCULOSKELETAL/RHEUMATOLOGICAL Hx Falls: No - GASTROINTESTINAL Hx Gastrointestinal Disorders: No - GENITOURINARY/GYNECOLOGICAL Hx Genitourinary Disorders: No - PSYCHIATRIC Hx Substance Use: No - SURGICAL HISTORY Hx Surgeries: Yes () Hx Section: Yes - ANESTHESIA Hx Anesthesia: Yes Hx Anesthesia Reactions: No Meds Allergies/Adverse Reactions: Allergies Allergy/AdvReac Type Severity Reaction Status Date / Time No Known Allergies Allergy Verified 10/16/17 17:48 - Medications Medications: Current Medications Acetaminophen (Tylenol 325mg Tab) 650 mg PO Q6 PRN PRN Reason: Pain, Mild (1-3) Acetaminophen/Butalbital/Caffeine (Fioricet) 1 tab PO Q6 PRN PRN Reason: Headache Aspirin (Ecotrin) 81 mg PO DAILY [facility] Last Admin: 10/17/17 10:22 Dose: 81 mg Carvedilol (Coreg) 25 mg PO BID [facility] Last Admin: 10/17/17 18:00 Dose: Not Given Clopidogrel Bisulfate (Plavix) 75 mg PO DAILY [facility] Last Admin: 10/17/17 10:19 Dose: 75 mg Enalapril Maleate (Vasotec) 5 mg PO DAILY [facility] Last Admin: 10/17/17 10:18 Dose: 5 mg Enoxaparin Sodium (Lovenox) 40 mg SC DAILY [facility] Last Admin: 10/17/17 10:20 Dose: 40 mg Famotidine (Pepcid) 20 mg PO BID [facility] Furosemide (Lasix) 40 mg IVP DAILY [facility] Last Admin: 10/17/17 10:19 Dose: 40 mg Rosuvastatin Calcium (Crestor) 10 mg PO HS [facility] Last Admin: 10/17/17 21:45 Dose: 10 mg Results - Vital Signs Recent Vital Signs: Last Vital Signs Temp 98.6 F 10/17/17 23:20 Pulse 54 L 10/18/17 04:12 Resp 20 10/17/17 23:20 BP 98/64 L 10/17/17 23:20 Pulse Ox 98 10/17/17 23:20 - Labs Result Diagrams: 10/17/17 07:23 10/17/17 07:23 Labs: Laboratory Results - last 24 hr 10/17/17 10/17/17 10/17/17 07:23 07:23 07:23 WBC 4.3 L RBC 4.34 Hgb 13.6 Hct 39.3 MCV 90.5 MCH 31.2 H MCHC 34.5 RDW 13.6 Plt Count 158 MPV 10.5 Neut % (Auto) 59.1 Lymph % (Auto) 30.2 Ellis % (Auto) 6.9 Eos % (Auto) 3.4 Baso % (Auto) 0.4 Neut # (Auto) 2.5 Lymph # (Auto) 1.3 Ellis # (Auto) 0.3 Eos # (Auto) 0.1 Baso # (Auto) 0.0 Sodium 143 Potassium 3.8 Chloride 106 Carbon Dioxide 27 Anion Gap 14 BUN 10 Creatinine 0.8 Est GFR ( Amer) > 60 Est GFR (Non-Af Amer) > 60 Random Glucose 91 Calcium 9.0 Total Bilirubin 1.0 AST 31 ALT 22 Alkaline Phosphatase 59 Total Creatine Kinase 48 CK-MB (Mass) 0.40 Troponin I < 0.0120 Total Protein 7.1 Albumin 3.9 Globulin 3.2 Albumin/Globulin Ratio 1.2 Triglycerides 87 Cholesterol 155 LDL Cholesterol Direct 93 HDL Cholesterol 33 Urine Opiates Screen Urine Methadone Screen Ur Barbiturates Screen Ur Phencyclidine Scrn Ur Amphetamines Screen U Benzodiazepines Scrn U Oth Cocaine Metabols U Cannabinoids Screen 10/17/17 20:29 WBC RBC Hgb Hct MCV MCH MCHC RDW Plt Count MPV Neut % (Auto) Lymph % (Auto) Ellis % (Auto) Eos % (Auto) Baso % (Auto) Neut # (Auto) Lymph # (Auto) Ellis # (Auto) Eos # (Auto) Baso # (Auto) Sodium Potassium Chloride Carbon Dioxide Anion Gap BUN Creatinine Est GFR ( Amer) Est GFR (Non-Af Amer) Random Glucose Calcium Total Bilirubin AST ALT Alkaline Phosphatase Total Creatine Kinase CK-MB (Mass) Troponin I Total Protein Albumin Globulin Albumin/Globulin Ratio Triglycerides Cholesterol LDL Cholesterol Direct HDL Cholesterol Urine Opiates Screen Negative Urine Methadone Screen Negative Ur Barbiturates Screen Negative Ur Phencyclidine Scrn Negative Ur Amphetamines Screen Negative U Benzodiazepines Scrn Negative U Oth Cocaine Metabols Negative U Cannabinoids Screen Negative Assessment & Plan - Assessment and Plan (Free Text) Assessment: This is a 52 year old female with PMHx SLE with lupus nephritis, HTN, History NSTEMI, History of CAD with 100% occlusion of LAD - was not a candidate for CABG, Systolic Heart Failure with ?? LVEF s/p AICD 03/2016 admitted for chest pain r/o ACS. Patient follows up with [facility] for Room Service Supervisor appointment in October. Last follow up with 06/2017 where she had an ECHO done was has been unchanged since previous study as per patient. Plan: Chest Pain r/o ACS History of Systolic Heart Failure s/p AICD (03/2016) Hx NSTEMI;; History of CAD with 100% occlusion of LAD - was not a candidate for CABG (11/2015) - Patient reports recent dyspnea on exertion, orthopnea, and generalized fatigue - CXR: Cardiomegaly - EKG: Sinus kianna @56BPM with no AR prolongation - DRU x 3 negative - BNP: 617 Management: - Resumed home medications: ASA, Plavix, Coreg 25 BID, Vasotec 5 daily, Lasix 40mg daily, Crestor 10mg QHS - 02/2016 ECHO: LVEF 35-40%, LV moderately dilated, LV systolic function is severely impaired - As per patient she had an ECHO 06/2017 with Room Service Supervisor from [facility] - unchanged from previous ECHO - F/U Repeat ECHO Hx Hypertension - Resumed home medications: ASA, Plavix, Coreg 25 BID, Vasotec 5 daily, Lasix 40mg daily, Crestor 10mg QHS - HgA1C 5.6, Lipid panel - WNL Hx SLE with lupus nephritis - Currently not on any steroids, denied any recent flares - Follows closely with Dr. Patel next appointment is in October 2017 Prophylactic measures - Pepcid - Lovenox Patient scheduled for stress test in am
--- NOTE | 2017-10-18 07:13 | CARD ---
APPROVED REPORT EXAM: Two-dimensional and M-mode echocardiogram with Doppler and color Doppler. Other Information Quality : GoodRhythm : INDICATION Dyspnea Cardiac Disease: CAD RISK FACTORS Hypertension 2D DIMENSIONS IVSd0.8 (0.7-1.1cm)LVDd5.7 (3.9-5.9cm) PWd0.7 (0.7-1.1cm)LVDs4.7 (2.5-4.0cm) FS (%) 16.7 %LVEF (%)34.5 (>50%) M-Mode DIMENSIONS Left Atrium (MM)3.40 (2.5-4.0cm)Aortic Root3.06 (2.2-3.7cm) Aortic Cusp Exc.1.90 (1.5-2.0cm) Mitral Valve MV E Xllxwdkh28.8cm/sMV A Oqhgdcbe39.9cm/sE/A ratio0.8 TDI E/Lateral E'0.0E/Medial E'0.0 Tricuspid Valve TR Peak Kslkopjs877ox/sTR Peak Gr.[id number] LEFT VENTRICLE The Left Ventricle is moderately dilated. There is normal left ventricular wall thickness. Left ventricle systolic function is moderately to severely impaired. The Ejection Fraction is 30-35%. There is moderately to severe global hypokinesis of the left ventricle. Tissue Doppler imaging reveals abnormal left ventricular diastolic dysfunction. No left ventricle thrombus noted on this study. The apical aneurysm is moderate. RIGHT VENTRICLE The right ventricle is normal size. There is normal right ventricular wall thickness. Systolic function is moderately to severely reduced. ATRIA The left atrium size is normal. The right atrium size is normal. The interatrial septum is intact with no evidence for an atrial septal defect. AORTIC VALVE The aortic valve is normal in structure. No aortic regurgitation is present. There is no aortic valvular stenosis. There is no aortic valvular vegetation. MITRAL VALVE The mitral valve is normal in structure. There is no evidence of mitral valve prolapse. There is no mitral valve stenosis. Mitral regurgitation is mild. TRICUSPID VALVE The tricuspid valve is normal in structure. There is mild tricuspid regurgitation. Right ventricular systolic pressure is estimated at less than 30 mmHg. There is no pulmonary hypertension. PULMONIC VALVE The pulmonic valve is not well visualized. There is mild pulmonic valvular regurgitation. GREAT VESSELS The aortic root is normal in size. PERICARDIAL EFFUSION There is no significant pericardial effusion. <Conclusion> Left ventricle systolic function is moderately to severely impaired. Dyskinetic apex. The Ejection Fraction is 30-35%. Diastolic dysfunction. No aortic regurgitation is present. Mitral regurgitation is mild. There is mild tricuspid regurgitation. There is no pulmonary hypertension. There is mild pulmonic valvular regurgitation.
[2017-10-18] MEDS ORDERED: Bisacodyl 5mg EC Tab PO ONE (07:45)
[2017-10-18 08:02] LABS: BASO % 0.6 % (0.0-2.0); EOS # 0.1 K/uL (0.0-0.7); EOS % 3.4 % (0.0-4.0); HEMOGLOBIN 14.4 g/dL (11.0-16.0); LYMPH # 0.9 K/uL (1.0-4.3); LYMPH % 21.3 % (20.0-40.0); MEAN CELL VOLUME 90.7 fL (81.0-99.0); MEAN CORPUSCULAR HEMOGLOBIN 31.2 pg (27.0-31.0); MEAN CORPUSCULAR HGB CONC 34.3 g/dL (33.0-37.0); MEAN PLATELET VOLUME 10.7 fL (7.2-11.7); MONO # 0.3 K/uL (0.0-0.8); MONO % 7.1 % (0.0-10.0); NEUT # 2.8 K/uL (1.8-7.0); NEUT % 67.6 % (50.0-75.0); NRBC % 0.2 % (0.0-2.0); RBC 4.62 Mil/uL (3.80-5.20); RED CELL DISTRIBUTION WIDTH 13.7 % (11.5-14.5); WHITE BLOOD COUNT 4.2 K/uL (4.8-10.8)
[2017-10-18 08:20] LABS: ALB/GLOB RATIO 1.3 (1.0-2.1); ALBUMIN 4.3 g/dL (3.5-5.0); ALT/SGPT 29 U/L (9-52); AST/SGOT 32 U/L (14-36); BLOOD UREA NITROGEN 16 mg/dL (7-17); GFR AFRICAN-AMERICAN > 60; GFR NON-AFRICAN AMERICAN > 60
[2017-10-18 08:24] VITALS: TEMP 97.9
--- NOTE | 2017-10-18 15:28 | CP.PCM.DIS ---
Provider - Provider Date of Admission: 10/16/17 19:29 Attending physician: Talat Christensen MD Time Spent in preparation of Discharge (in minutes): 55 Hospital Course - Lab Results Lab Results: Most Recent Lab Values WBC 4.2 K/uL (4.8-10.8) L 10/18/17 07:40 RBC 4.62 Mil/uL (3.80-5.20) 10/18/17 07:40 Hgb 14.4 g/dL (11.0-16.0) 10/18/17 07:40 Hct 41.9 % (34.0-47.0) 10/18/17 07:40 MCV 90.7 fL (81.0-99.0) 10/18/17 07:40 MCH 31.2 pg (27.0-31.0) H 10/18/17 07:40 MCHC 34.3 g/dL (33.0-37.0) 10/18/17 07:40 RDW 13.7 % (11.5-14.5) 10/18/17 07:40 Plt Count 172 K/uL (130-400) 10/18/17 07:40 MPV 10.7 fL (7.2-11.7) 10/18/17 07:40 Neut % (Auto) 67.6 % (50.0-75.0) 10/18/17 07:40 Lymph % (Auto) 21.3 % (20.0-40.0) 10/18/17 07:40 Barren % (Auto) 7.1 % (0.0-10.0) 10/18/17 07:40 Eos % (Auto) 3.4 % (0.0-4.0) 10/18/17 07:40 Baso % (Auto) 0.6 % (0.0-2.0) 10/18/17 07:40 Neut # (Auto) 2.8 K/uL (1.8-7.0) 10/18/17 07:40 Lymph # (Auto) 0.9 K/uL (1.0-4.3) L 10/18/17 07:40 Barren # (Auto) 0.3 K/uL (0.0-0.8) 10/18/17 07:40 Eos # (Auto) 0.1 K/uL (0.0-0.7) 10/18/17 07:40 Baso # (Auto) 0.0 K/uL (0.0-0.2) 10/18/17 07:40 PT 11.2 SECONDS (9.7-12.2) 10/16/17 18:38 INR 1.0 10/16/17 18:38 APTT 38 SECONDS (21-34) H 10/16/17 18:38 Sodium 142 mmol/L (132-148) 10/18/17 07:40 Potassium 3.9 mmol/L (3.6-5.2) 10/18/17 07:40 Chloride 102 mmol/L (98-107) 10/18/17 07:40 Carbon Dioxide 30 mmol/L (22-30) 10/18/17 07:40 Anion Gap 15 (10-20) 10/18/17 07:40 BUN 16 mg/dL (7-17) 10/18/17 07:40 Creatinine 0.9 mg/dL (0.7-1.2) 10/18/17 07:40 Est GFR ( Amer) > 60 10/18/17 07:40 Est GFR (Non-Af Amer) > 60 10/18/17 07:40 Random Glucose 92 mg/dL (65-105) 10/18/17 07:40 Hemoglobin A1c 5.6 % (4.2-6.5) 10/17/17 01:01 Calcium 9.0 mg/dl (8.6-10.4) 10/18/17 07:40 Phosphorus 4.8 mg/dL (2.5-4.5) H 10/18/17 07:40 Magnesium 2.0 mg/dL (1.6-2.3) 10/18/17 07:40 Total Bilirubin 1.2 mg/dL (0.2-1.3) 10/18/17 07:40 AST 32 U/L (14-36) 10/18/17 07:40 ALT 29 U/L (9-52) 10/18/17 07:40 Alkaline Phosphatase 63 U/L (38-126) 10/18/17 07:40 Total Creatine Kinase 48 U/L (30-135) 10/17/17 07:23 CK-MB (Mass) 0.40 ng/mL (0.0-3.38) 10/17/17 07:23 Troponin I < 0.0120 ng/mL (0.00-0.120) 10/17/17 07:23 NT-Pro-B Natriuret Pep 617 pg/mL (0-900) 10/16/17 18:38 Total Protein 7.6 g/dL (6.3-8.3) 10/18/17 07:40 Albumin 4.3 g/dL (3.5-5.0) 10/18/17 07:40 Globulin 3.3 gm/dL (2.2-3.9) 10/18/17 07:40 Albumin/Globulin Ratio 1.3 (1.0-2.1) 10/18/17 07:40 Triglycerides 87 mg/dL (0-149) 10/17/17 07:23 Cholesterol 155 mg/dL (0-199) 10/17/17 07:23 LDL Cholesterol Direct 93 mg/dL (0-129) 10/17/17 07:23 HDL Cholesterol 33 mg/dL (30-70) 10/17/17 07:23 Free T4 1.21 ng/dL (0.78-2.19) 10/17/17 01:01 TSH 3rd Generation 4.50 mIU/L (0.46-4.68) 10/17/17 01:01 Urine Color Colorless (YELLOW) 10/16/17 18:45 Urine Clarity Clear (Clear) 10/16/17 18:45 Urine pH 6.0 (5.0-8.0) 10/16/17 18:45 Ur Specific [place] 1.001 (1.003-1.030) L 10/16/17 18:45 Urine Protein Negative mg/dL (NEGATIVE) 10/16/17 18:45 Urine Glucose (UA) Normal mg/dL (Normal) 10/16/17 18:45 Urine Ketones Negative mg/dL (NEGATIVE) 10/16/17 18:45 Urine Blood Negative (NEGATIVE) 10/16/17 18:45 Urine Nitrate Negative (NEGATIVE) 10/16/17 18:45 Urine Bilirubin Negative (NEGATIVE) 10/16/17 18:45 Urine Urobilinogen Normal mg/dL (0.2-1.0) 10/16/17 18:45 Ur Leukocyte Esterase 1+ Gonzalez/uL (Negative) H 05/29/18 18:45 Urine WBC (Auto) 7 /hpf (0-5) H 10/16/17 18:45 Urine RBC (Auto) < 1 /hpf (0-3) 10/16/17 18:45 Ur Squamous Epith Cells 1 /hpf (0-5) 10/16/17 18:45 Ur Transition Epith Cell < 1 /hpf (0-3) 10/16/17 18:45 Urine Bacteria Occ (<OCC) H 10/16/17 18:45 Urine HCG, Qual Negative (NEGATIVE) 10/16/17 18:45 Urine Opiates Screen Negative (NEGATIVE) 10/17/17 20:29 Urine Methadone Screen Negative (NEGATIVE) 10/17/17 20:29 Ur Barbiturates Screen Negative (NEGATIVE) 10/17/17 20:29 Ur Phencyclidine Scrn Negative (NEGATIVE) 10/17/17 20:29 Ur Amphetamines Screen Negative (NEGATIVE) 10/17/17 20:29 U Benzodiazepines Scrn Negative (NEGATIVE) 10/17/17 20:29 U Oth Cocaine Metabols Negative (NEGATIVE) 10/17/17 20:29 U Cannabinoids Screen Negative (NEGATIVE) 10/17/17 20:29 - Hospital Course Hospital Course: Upon Admission: This is a 52 yo female, originally from [facility], with past medical hx of CAD, HTN, AICD/pacemaker, lupus, [place], lupus nephritis, presenting to hospital with chief complaint of chest pain. Pt is accompanied by daughter. Pt says she started to develop chest pain at 10 am this morning. She was lying in bed. It is a pressure sensation, 6/10. At about 3 30 , she also started to feel dizzy and pain was getting worse so she came to ER. Denies fevers and chills. Says pain is substernal. Says it happened before this past sunday with some radiation to left arm, but went away after 10 minutes. Today the pain has been constant. She did not take anything for it at home, but she says asa in the ER made it better. The pain happened at rest and with exertion. She says it is not reproducible. She also reports some sob and says she feels sob after walking only 1/2 block. She reports recent cardiac cath and stress test. She also reports headache. She denies sick contacts. She denies recent travel. PMD: [place]/[facility] Specialists: Cardiology: Miek Hood- Jorge PMH: HTN, CAD, lupus, cardiac arrhythmia PSH: AICD/pacemaker, C section Allergies: NKDA FH: Denies Home meds: asa 81 mg po daily, enalapril 5 mg po daily, cellcept, plavix 75 mg po daily, coreg 25 mg po bid, pepcid 20 mg po daily, lasix 40 mg po daily Social hx: Non smoker. Does not drink. Denies drug use. Born in [facility]. Lives in [place]. Does not work. Fully mobile and able to complete all ADLs. Throughout Hospital Course: This is a 52 year old female with PMHx SLE with lupus nephritis, HTN, History NSTEMI, History of CAD with 100% occlusion of LAD - was not a candidate for CABG, Systolic Heart Failure with ?? LVEF s/p AICD 03/2016 admitted for chest pain r/o ACS. Patient follows up with [facility] for Pool Lifeguard appointment in October. Last follow up with 06/2017 where she had an ECHO done was has been unchanged since previous study as per patient. Plan: Chest Pain r/o ACS History of Systolic Heart Failure s/p AICD (03/2016) Hx NSTEMI;; History of CAD with 100% occlusion of LAD - was not a candidate for CABG (11/2015) - Cardiology consulted - Dr. Chang - help appreciated - Patient reports recent dyspnea on exertion, orthopnea, and generalized fatigue - CXR: Cardiomegaly - EKG: Sinus kianna @56BPM with no AL prolongation - DRU x 3 negative - BNP: 617 Management: - Resumed home medications: ASA, Plavix, Coreg 25 BID, Vasotec 5 daily, Lasix 40mg daily, Crestor 10mg QHS - 02/2016 ECHO: LVEF 35-40%, LV moderately dilated, LV systolic function is severely impaired - As per patient she had an ECHO 06/2017 with Pool Lifeguard from [facility] - unchanged from previous ECHO -Repeat ECHO: Mod/severe systolic dysfunction with EF 30-35%, mild TR - Lexiscan was reviewed by Dr. Chang - negative study she is cleared by Cardiology for discharge. She will be following with Dr. Mckeon within 1-2 weeks. Hx Hypertension - Resumed home medications: ASA, Plavix, Coreg 25 BID, Vasotec 5 daily, Lasix 40mg daily, Crestor 10mg QHS - HgA1C 5.6, Lipid panel - WNL Hx SLE with lupus nephritis - Currently not on any steroids, denied any recent flares - Follows closely with Dr. Patel next appointment is in October 26, 2017 Please review EMR for full record as this is a brief summary of the patient's hospital course. Discharge Exam - Additional Findings Additional findings: - Head Exam Head Exam: NORMAL INSPECTION, NORMOCEPHALIC - Eye Exam Eye Exam: EOMI, Normal appearance, PERRL. absent: Nystagmus, Scleral icterus Pupil Exam: NORMAL ACCOMODATION - ENT Exam ENT Exam: Mucous Membranes Moist - Neck Exam Neck Exam: Normal Inspection - Respiratory Exam Respiratory Exam: Clear to Ausculation Bilateral, NORMAL BREATHING PATTERN. absent: Decreased Breath Sounds, Wheezes - Cardiovascular Exam Cardiovascular Exam: REGULAR RHYTHM - GI/Abdominal Exam GI & Abdominal Exam: Soft, Normal Bowel Sounds. absent: Distended, Tenderness - Extremities Exam Extremities Exam: Normal Inspection. absent: Pedal Edema, Tenderness - Neurological Exam Neurological Exam: Alert, Awake, Oriented x3 - Psychiatric Exam Psychiatric exam: Normal Affect, Normal Mood - Skin Skin Exam: Dry, Intact, Normal Color, Warm Discharge Plan - Discharge Medications Prescriptions: Rosuvastatin Calcium [Crestor] 10 mg PO HS #30 tab - Follow Up Plan Condition: GOOD Disposition: HOME/ ROUTINE Instructions: Heart Failure, Adult, Heart Healthy Diet, Heart Failure, Adult ( DC), High Blood Pressure (DC), Chest Pain (DC), Rosuvastatin Additional Instructions: Please continue taking the following medications: ASA 81mg by mouth daily Plavix 75mg by mouth daily Coreg 25mg by mouth twice a day Vasotec 5 mg by mouth daily Lasix 40mg by mouth daily Pepcid 20mg by mouth twice a day Crestor 10mg by mouth at night with dinner Please continue with your scheduled appointment with Dr. Patel for your Lupus. Please arrange to see your Pool Lifeguard within 1-2 weeks. Since he is within our [employer] [facility] - he will be able to review the ECHO and Nuclear Stress Test that was done and reviewed by our Pool Lifeguard Dr. Chang. Please continue to have a salt free diet and restrict fluids LESS THAN 1.5 L per day. Please take care and be well. -- Por favor, contine tomando los siguientes medicamentos: ASA 81 mg por va oral todos los whatley Plavix 75mg por va oral diariamente Coreg 25 mg por va oral dos veces al da Vasotec 5 mg por va oral al da Lasix 40mg por va oral diariamente Pepcid 20mg por va oral dos veces al da Crestor 10 mg por la boca por la noche con la underwriting technician Contine con vela emilee programada con el Dr. Patel para vela Lupus. Chloe arreglos para maria teresa a vela cardilogo dentro de 1-2 semanas. Dado que est dentro de nuestro sistema [facility], podr revisar el ECHO y la prueba de esfuerzo nuclear que realiz y chiki nuestro cardilogo, el Dr. Chang. Por favor contine con daryl dieta hipolito de josé miguel y restrinja los lquidos MENOS DE 1.5 L por da. Por favor cudate y estate enoc. Referrals: Grey Patel MD [Staff Provider] -
[2017-10-18 17:16] VITALS: BP 107/72
[2017-10-18 17:22] VITALS: PULSE 65
--- NOTE | 2017-10-18 18:54 | CARD ---
APPROVED REPORT Protocol: PHARMACOLOGICAL STRESS Test Type: LEXISCAN Test Indications: CHEST PAIN Medications: LIST SCAN Medical History: CHEST PAIN,HX CAD WITH 100%OCCLUS Target HR: 169 bpm Resting ECG: nsr poor R-wave progression V1-V5 with Twave inversions in l Resting Heart Rate: 62 bpm Resting Blood Pressure: 118/70mmHg submaximum (85%): 144 bpm TEST SUMMARY [id number]:380.00..910044/70.0. INFUSIONDOSE 100:300.00.01.066/.0. [id number]:210.00..8000528/70.0. PROCEDURE Pharmacologic stress testing was performed using 0.4mg per 5ml of regadenoson given intravenously over 7-10 seconds. Reversal agent aminophyline 100 mg, given intravenously for Chest Pain. POST EXERCISE Reason for Termination: Protocol Completed Target HR: No Max HR: 66 bpm 63% of Maximum Predicted HR: 169 bpm Exercise duration: 00:30 min:sec, 0 Stage Exercise capacity: 1.0METs Max Blood Pressure: 130/70mmHg Blood Pressure response to exercise: normal resting BP - appropriate response Heart Rate response to exercise: appropriate Chest Pain: No, none Angina index: 0 Arrhythmia: No, none ST Change: Yes, IVCD OF LBBB PATTERN (ILBBB) Deviation: 0 mm INTERPRETATION Stress EKG Conclusion: NEGATIVE LEXISCAN STRESS TEST NORMAL BP RESPONSE TO LEXISCAN TRANSIENT ILBBB DURING RECOVERY PHASE NUCLEAR STUDIES TO BE READ SEPARATELY EXAM: Myocardial Perfusion STRESS/REST Imaging Protocol The imaging protocol used to acquire images was Stress Tc-99m/rest Tc-99m 1 day Rest Spect myocardial perfusion imaging was performed in supine position 45 minutes following the injection of 31.6 mCi of Tc-99 Myoview. Gated Stress Spect was performed 45 minutes after intravenous 12.8 mCi Tc-99 Myoview injection. The images were gated to evaluate regional wall motion and calculate ventricular ejection fraction.Images were reconstructed using backfilter projection method in short horizontal and verticle long axis. Spect slices were generated. RESTING DATA GLB291.88gePC9.60L/min1/3 Pk. Filling Rate0.46EDV/sec LV Time to Pk. Filling Icaz337.10msec TEZ461.00mlMyocardial Cujh500.00gLV Time to Pk. Ejection Fika046.68msec Pk. Fill Rate1.14EDV/secAv. Heart Rate61.00bpm EF30.00%Pk. Emptying Rate1.64ESV/sec STRESS DATA FAH785.86lgWT6.80L/min QES337.00mlMyocardial Lqya623.00g Pk. Fill Rate1.11EDV/sec EF32.00%Pk. Emptying Rate1.60ESV/sec 1/3 Pk. Filling Rate0.51EDV/secRegional WT score at stress:0.00 LV Time to Pk. Filling Rate:214.10msecRegional WM score at stress:2.00 LV Time to Pk. Ejection Rate:308.94msecSummed WT score at stress:35.00 Av. Heart Rate60.00bpmSummed WM score at stress:33.00 LV Perf. Quant 17 Seg. SSS29.00 17 Seg. SRS32.00 17 Seg. SDS0.00 Stress Defect Extent (% LAD)64.40Rest Defect Extent (% LAD)70.60Rev. Defect Extent (% LAD)0.00 Stress Defect Extent (% LCX)32.50Rest Defect Extent (% LCX)28.80Rev. Defect Extent (% LCX)7.50 Stress Defect Extent (% RCA)31.10Rest Defect Extent (% RCA)48.90Rev. Defect Extent (% RCA)0.00 Stress Defect Extent (% JERALD)50.40Rest Defect Extent (% JERALD)55.90Rev. Defect Extent (% JERALD)1.30 Other Information Quality:Good IMPRESSION Abnormal Myocardial Perfusion exercise stress study Left Ventricle LV Function:The Ejection Fraction is 25-35%. Conclusion 1. Large fixed anterior and apical defect suggestive of prior myocardial infarction. EF 32%. 2. No stress induced ischemia
--- NOTE | 2017-10-19 05:42 | CARD ---
APPROVED REPORT EKG Measurement Heart [id number] <Conclusion> Normal sinus rhythm Possible Left atrial enlargement Left ventricular hypertrophy Inferior infarct, age undetermined ST & T wave abnormality, consider anterolateral ischemia Abnormal ECG
[2017-10-19 19:11] VITALS: O2SAT 96
== END 2017-10-18 17:42 | disposition home or self-care (01) ==
LOC: C.ER 17:43 → C.9E 19:29 → INTOOBSV 19:29 → C.6T 20:15
PROVIDERS: ADMIT Family Medicine; ATTEND Family Medicine
DX: I25.10 Atherosclerotic heart disease of native coronary artery without angina pectoris (principal); I11.0 Hypertensive heart disease with heart failure; I25.2 Old myocardial infarction; I50.9 Heart failure, unspecified; J20.9 Acute bronchitis, unspecified; M32.9 Systemic lupus erythematosus, unspecified; Z87.01 Personal history of pneumonia (recurrent); Z95.810 Presence of automatic (implantable) cardiac defibrillator
CPT/HCPCS: 36415; 70450; 71045; 78452; 80053; 80061; 80324; 80345; 80346; 80349; 80353; 80358; 80361; 81001; 83036; 83735; 83880; 83992; 84100; 84439; 84443; 84484; 84703; 85025; 85610; 85730; 93005; 93017; 93306; 99285; A9502; G0378; J1650; J1940; J2405

== ENCOUNTER 2018-07-06 18:49 | Emergency (ER) | payer SELFPAY ==
[2018-07-06 18:49] VITALS: BMI 33.1
[2018-07-06 19:21] VITALS: RESP 16; TEMP 97.8; O2SAT 98
[2018-07-06] MEDS ORDERED: Sodium Chloride 0.9% 1,000 ML IV ONE (19:22)
[2018-07-06] MEDS ORDERED: Sodium Chloride 0.9% 1,000 ML ONE (19:34)
[2018-07-06 19:35] LABS: BASO % 0.6 % (0.0-2.0); EOS # 0.1 K/uL (0.0-0.7); EOS % 2.4 % (0.0-4.0); HEMOGLOBIN 13.6 g/dL (11.0-16.0); LYMPH # 0.6 K/uL (1.0-4.3); MEAN CELL VOLUME 90.8 fL (81.0-99.0); MEAN CORPUSCULAR HEMOGLOBIN 29.8 pg (27.0-31.0); MEAN CORPUSCULAR HGB CONC 32.8 g/dL (33.0-37.0); MEAN PLATELET VOLUME 10.2 fL (7.2-11.7); MONO # 0.2 K/uL (0.0-0.8); MONO % 4.3 % (0.0-10.0); NEUT # 2.9 K/uL (1.8-7.0); NEUT % 77.7 % (50.0-75.0); NRBC % 0.1 % (0.0-2.0); RBC 4.55 Mil/uL (3.80-5.20); RED CELL DISTRIBUTION WIDTH 13.7 % (11.5-14.5); WHITE BLOOD COUNT 3.7 K/uL (4.8-10.8)
[2018-07-06 19:48] LABS: ALB/GLOB RATIO 1.1 (1.0-2.1); BLOOD UREA NITROGEN 10 mg/dL (7-17); CALCIUM 8.1 mg/dl (8.6-10.4); GFR NON-AFRICAN AMERICAN > 60
[2018-07-06 19:49] LABS: ALT/SGPT 23 U/L (9-52); AST/SGOT 36 U/L (14-36)
[2018-07-06 19:52] LABS: HCG,QUALITATIVE URINE NEGATIVE (NEGATIVE)
[2018-07-06 19:55] LABS: SQUAMOUS EPITHIAL 5 /hpf (0-5); URINE BACTERIA RARE (<OCC); URINE BILIRUBIN NEGATIVE (NEGATIVE); URINE BLOOD 1+ (NEGATIVE); URINE CLARITY Clear (Clear); URINE COLOR Straw (YELLOW); URINE GLUCOSE (UA) NORMAL (Normal); URINE LEUKOCYTE ESTERASE 1+ Leu/uL (Negative); URINE PROTEIN NEGATIVE (NEGATIVE); URINE UROBILINOGEN NORMAL mg/dL (0.2-1.0)
--- NOTE | 2018-07-06 20:23 | C.PDOC ---
History Of Present Illness 52 y/o female comes in to the emergency department complaining of body aches, runny nose, and sore throat x2 days. She is also complaining of rash on her extremities, particularly her legs for the past 2-3 weeks. Patient was diagnosed with SLE [address] Patel, country singer. Patient takes cellcept daily and 10mg prednisone daily. Time Seen by Provider: 07/06/18 18:58 Chief Complaint (Nursing): Medical Clearance History Per: Patient History/Exam Limitations: no limitations Onset/Duration Of Symptoms: Days Current Symptoms Are (Timing): Still Present Past Medical History Reviewed: Historical Data, Nursing Documentation, Vital Signs Vital Signs: Last Vital Signs Temp 97.8 F 07/06/18 18:58 Pulse 78 07/06/18 18:58 Resp 16 07/06/18 18:58 BP 140/91 H 07/06/18 18:58 Pulse Ox 98 07/06/18 18:58 - Medical History PMH: CAD (with pacemaker), Cardia Arrhythmia, CHF, HTN, Pneumonia Denies: Chronic Kidney Disease Surgical History: Pacemaker, - [facility] Procedures EXCISION OF DUODENUM, ENDO, DIAGN (08/07/15) EXCISION OF STOMACH, ENDO, DIAGN (08/07/15) INSPECTION OF LOWER INTESTINAL TRACT, ENDO (08/07/15) MEASURE OF CARDIAC SAMPL & PRESSURE, L HEART, PERC APPROACH (11/27/15) PLAIN RADIOGRAPHY OF LEFT HEART USING OTHER CONTRAST (11/27/15) PLAIN RADIOGRAPHY OF MULT COR ART USING OTH CONTRAST (11/27/15) Family History: States: No Known Family Hx - Social History Hx Tobacco Use: No Hx Alcohol Use: No Hx Substance Use: No - Immunization History Hx Tetanus Toxoid Vaccination: No Hx Influenza Vaccination: Yes Hx Pneumococcal Vaccination: No Review Of Systems Constitutional: Positive for: Other (body aches). Negative for: Fever, Chills ENT: Positive for: Nose Discharge (runny nose), Throat Pain (sore throat) Respiratory: Negative for: Cough Skin: Positive for: Rash (to lower extremities) Physical Exam - Physical Exam Appears: Non-toxic, Other (Mildly uncomfortable) Skin: Warm, Dry Head: Atraumatic, Normacephalic Eye(s): bilateral: Normal Inspection Oral Mucosa: Moist Throat: Normal, No Erythema, No Exudate Cardiovascular: Rhythm Regular, No Murmur Respiratory: Normal Breath Sounds, No Rales, No Rhonchi, No Wheezing Gastrointestinal/Abdominal: Soft, No Tenderness Extremity: Other (arms and legs have diffuse erythematous macules) Extremity: Bilateral: Normal ROM Neurological/Psych: Oriented x3, Normal Speech ED Course And Treatment - Laboratory Results Result Diagrams: 07/06/18 19:32 07/06/18 19:32 Lab Results: Total Bilirubin 0.9 mg/dL (0.2-1.3) 07/06/18 19:32 AST 36 U/L (14-36) 07/06/18 19:32 ALT 23 U/L (9-52) 07/06/18 19:32 Alkaline Phosphatase 56 U/L (38-126) 07/06/18 19:32 Total Protein 7.6 g/dL (6.3-8.3) 07/06/18 19:32 Albumin 4.0 g/dL (3.5-5.0) 07/06/18 19:32 Globulin 3.5 gm/dL (2.2-3.9) 07/06/18 19:32 Albumin/Globulin Ratio 1.1 (1.0-2.1) 07/06/18 19:32 Urine Color Straw (YELLOW) 07/06/18 19:44 Urine Clarity Clear (Clear) 07/06/18 19:44 Urine pH 6.0 (5.0-8.0) 07/06/18 19:44 Ur Specific [place] 1.003 (1.003-1.030) 07/06/18 19:44 Urine Protein Negative mg/dL (NEGATIVE) 07/06/18 19:44 Urine Glucose (UA) Normal mg/dL (Normal) 07/06/18 19:44 Urine Ketones Negative mg/dL (NEGATIVE) 07/06/18 19:44 Urine Blood 1+ (NEGATIVE) H 07/06/18 19:44 Urine Nitrate Negative (NEGATIVE) 07/06/18 19:44 Urine Bilirubin Negative (NEGATIVE) 07/06/18 19:44 Urine Urobilinogen Normal mg/dL (0.2-1.0) 07/06/18 19:44 Ur Leukocyte Esterase 1+ Gonzalez/uL (Negative) H 07/06/18 19:44 Urine WBC (Auto) 16 /hpf (0-5) H 07/06/18 19:44 Urine RBC (Auto) 1 /hpf (0-3) 07/06/18 19:44 Ur Squamous Epith Cells 5 /hpf (0-5) 07/06/18 19:44 Urine Bacteria Rare (<OCC) 07/06/18 19:44 Urine HCG, Qual Negative (NEGATIVE) 07/06/18 19:44 Urine HCG, Qual Negative (NEGATIVE) 07/06/18 19:44 O2 Sat by Pulse Oximetry: 98 (RA) Pulse Ox Interpretation: Normal Progress Note: Bloodwork and UA ordered and reviewed. Patient was given IV flu ids, morphine, solumedrol, and toradol IV. Disposition Counseled Patient/Family Regarding: Studies Performed, Diagnosis, Need For Followup, Rx Given - Disposition Referrals: Grey Patel MD [Staff Provider] - Disposition: HOME/ ROUTINE Disposition Time: 20:25 Condition: STABLE Additional Instructions: FOLLOW UP WITH DR PATEL IN 1-2 DAYS USE MEDICATIONS DIRECTED RETURN TO ER IF SYMPTOMS WORSEN Prescriptions: Naproxen 375 mg PO BID PRN #20 tablet PRN Reason: pain Nitrofurantoin Macrocrystals [Macrobid] 1 cap PO BID #14 cap predniSONE [predniSONE Tab] 40 mg PO DAILY #8 tab traMADol [Ultram] 50 mg PO BID PRN #12 tab PRN Reason: pain Instructions: Urinary Tract Infection, Adult (DC), Lupus (DC) Forms: [employer] (Ukrainian) Print Language: MACEDONIAN - Clinical Impression Clinical Impression: Systemic lupus erythematosus, UTI (urinary tract infection) - Scribe Statement The provider has reviewed the documentation as recorded by the Bry Mane Provider Attestation: All medical record entries made by the Bry were at my direction and personally dictated by me. I have reviewed the chart and agree that the record accurately reflects my personal performance of the history, physical exam, medical decision making, and the department course for this patient. I have also personally directed, reviewed, and agree with the discharge instructions and disposition.
[2018-07-06 20:43] VITALS: BP 129/81; PULSE 74
== END 2018-07-06 20:42 | disposition home or self-care (01) ==
LOC: C.ER 18:49
DX: M32.9 Systemic lupus erythematosus, unspecified (principal); N39.0 Urinary tract infection, site not specified; I25.10 Atherosclerotic heart disease of native coronary artery without angina pectoris; Z95.0 Presence of cardiac pacemaker; I50.9 Heart failure, unspecified; I10 Essential (primary) hypertension
CPT/HCPCS: 80053; 81001; 84703; 85025; 87086; 96361; 96374; 96375; 99284; J2270; J2930; J7030

== ENCOUNTER 2018-10-10 11:25 | Inpatient (IN) | payer OTHER ==
[2018-10-10 11:25] VITALS: BMI 33.1
--- NOTE | 2018-10-10 13:52 | C.PDOC ---
History Of Present Illness PGY-[address] Bonilla Patient is 53 yo female with pmhx of Lupus, presenting with left posterior leg open eschar. Patient complains of pain in the area of eschar, states has been having multiple wounds in both legs, left knee and left buttocks area since one month ago. States has difficulty weight bearing on left leg and walking. Admits to one episodes of vomiting, denies fever, chills, recent trauma to left leg. Follows diabetes manager Dr Patel for Lupus management. <Ag Casillas - Last Filed: 10/10/18 15:12> <Kishan Bonilla - Last Filed: 10/10/18 14:46> History Per: Patient History/Exam Limitations: no limitations Onset/Duration Of Symptoms: Days, Persistent, Worse Since (day before ) Current Symptoms Are (Timing): Worse Severity: Severe <Ag Casillas - Last Filed: 10/10/18 15:12> Time Seen by Provider: 10/10/18 13:09 Chief Complaint (Nursing): Lower Extremity Problem/Injury Past Medical History Vital Signs: Last Vital Signs Temp 97.5 F L 10/10/18 11:38 Pulse 80 10/10/18 11:38 Resp 17 10/10/18 11:38 BP 134/87 10/10/18 11:38 Pulse Ox 100 10/10/18 14:46 - [facility] Procedures EXCISION OF DUODENUM, ENDO, DIAGN (08/07/15) EXCISION OF STOMACH, ENDO, DIAGN (08/07/15) INSPECTION OF LOWER INTESTINAL TRACT, ENDO (08/07/15) MEASURE OF CARDIAC SAMPL & PRESSURE, L HEART, PERC APPROACH (11/27/15) PLAIN RADIOGRAPHY OF LEFT HEART USING OTHER CONTRAST (11/27/15) PLAIN RADIOGRAPHY OF MULT COR ART USING OTH CONTRAST (11/27/15) <Kishan Bonilla - Last Filed: 10/10/18 14:46> Vital Signs: Last Vital Signs Temp 97.5 F L 10/10/18 11:38 Pulse 80 10/10/18 11:38 Resp 17 10/10/18 11:38 BP 134/87 10/10/18 11:38 Pulse Ox 100 10/10/18 11:38 Primary Care Provider: Clinic,Med Surg - Medical History PMH: CAD (with pacemaker), Cardia Arrhythmia, CHF, HTN, Pneumonia Denies: Chronic Kidney Disease Surgical History: Pacemaker, - [facility] Procedures EXCISION OF DUODENUM, ENDO, DIAGN (08/07/15) EXCISION OF STOMACH, ENDO, DIAGN (08/07/15) INSPECTION OF LOWER INTESTINAL TRACT, ENDO (08/07/15) MEASURE OF CARDIAC SAMPL & PRESSURE, L HEART, PERC APPROACH (11/27/15) PLAIN RADIOGRAPHY OF LEFT HEART USING OTHER CONTRAST (11/27/15) PLAIN RADIOGRAPHY OF MULT COR ART USING OTH CONTRAST (11/27/15) Family History: States: No Known Family Hx - Social History Hx Tobacco Use: No Hx Alcohol Use: No Hx Substance Use: No - Immunization History Hx Tetanus Toxoid Vaccination: Yes Hx Influenza Vaccination: No Hx Pneumococcal Vaccination: No <Ag Casillas - Last Filed: 10/10/18 15:12> Review Of Systems Constitutional: Negative for: Fever, Chills Cardiovascular: Negative for: Chest Pain Respiratory: Negative for: Shortness of Breath Gastrointestinal: Positive for: Vomiting (one episode). Negative for: Nausea, Diarrhea, Constipation, Melena, Hematochezia Genitourinary: Negative for: Dysuria Musculoskeletal: Positive for: Leg Pain Skin: Positive for: Lesions (bilateral leg wounds, left knee) Neurological: Negative for: Weakness, Numbness <Ag Casillas - Last Filed: 10/10/18 15:12> Physical Exam - Physical Exam Appears: Non-toxic, No Acute Distress Skin: Other (left posterior distal LE eschar approx 10cm x 6 cm, open wound in eschar with serosanguinous draninage, right posterior distal LE eschar non draining, 1cm x 1cm eschar in left anterior patellar area. ) Head: Atraumatic, Normacephalic Eye(s): bilateral: Normal Inspection Oral Mucosa: Moist Tongue: Normal Appearing Lips: Normal Appearing Cardiovascular: Rhythm Regular, No Murmur Respiratory: Normal Breath Sounds, No Rales, No Rhonchi, No Wheezing Extremity: Tenderness, No Swelling Neurological/Psych: Oriented x3, Normal Speech, Normal Cognition, Normal Cranial Nerves, Normal Motor, Normal Sensation <Ag Casillas - Last Filed: 10/10/18 15:12> ED Course And Treatment - Laboratory Results Result Diagrams: 10/10/18 14:39 Lab Interpretation: Normal Pulse Ox Interpretation: Normal - Other Rad L lower leg X-Ray: Interpreted by Me (+ SQ soft tissue fluid vs air, no osteo) Reevaluation Time: 14:47 Reassessment Condition: Improved - Physician Consult Information Outcome Of Conversation: 1410: d/w Dr. Patel- Rheum- ok to adm to Hospitalists. 1445: d/w Dr. Purdy- Hospitalist covering [facility] pt's, ok to med/surg obs. 1430: d/w Surg Consult- will eval <Kishan Bonilla - Last Filed: 10/10/18 14:46> - Laboratory Results Result Diagrams: 10/10/18 14:39 10/10/18 14:39 O2 Sat by Pulse Oximetry: 100 <Ag Casillas - Last Filed: 10/10/18 15:12> Medical Decision Making Medical Decision Makin53 year old female pmhx of lupus presenting with left posterior leg ulcer 2/2 venous stasis Ordered EKG, CBC, CMP, U/A, Drug screen left Tibial/fibula Xray Toradol 30 mg IVP x 1 Zosyn x1 surgical consult Spoke with hospitalist at 14:48, will admit patient Plan d/w Dr Chad Casillas, PGY-1 <Ag Casillas - Last Filed: 10/10/18 15:12> Disposition Doctor Will See Patient In The: Hospital Counseled Patient/Family Regarding: Studies Performed, Diagnosis - Disposition Disposition Time: 14:48 <Kishan Bonilla - Last Filed: 10/10/18 14:46> <Ag Casillas - Last Filed: 10/10/18 15:12> - Disposition Disposition: HOSPITALIZED Condition: GOOD - Clinical Impression Clinical Impression: Venous stasis ulcer
--- NOTE | 2018-10-10 14:17 | RAD ---
PROCEDURE: Radiographs of the left tibia and fibula. HISTORY: chronic wound anterior mid-shaft COMPARISON: None available. TECHNIQUE: Frontal and lateral views obtained. FINDINGS: BONES: No acute displaced fracture. JOINT SPACES: No dislocation. OTHER FINDINGS: There is a roughly 0.9 x 1.2 cm oblong lucency within the soft tissues of the posterior medial lower extremity consistent with ulceration. No evidence of radiopaque foreign body. IMPRESSION: Approximately 0.9 x 1.2 cm oblong lucency within the soft tissues of the posterior medial lower extremity consistent with ulceration.
[2018-10-10] MEDS ORDERED: Piperacill/Tazo 3.375gm in Dex 3.375 GM/50 ML BAG IVPB ONE (14:24)
[2018-10-10] MEDS ORDERED: Piperacillin/Tazobact 3.375 gm 100 ML IVPB ONE (14:39)
[2018-10-10 14:44] LABS: BASO % 0.5 % (0.0-2.0); EOS % 0.6 % (0.0-4.0); LYMPH # 0.4 K/uL (1.0-4.3); LYMPH % 10.7 % (20.0-40.0); MEAN CELL VOLUME 88.9 fL (81.0-99.0); MEAN CORPUSCULAR HEMOGLOBIN 30.5 pg (27.0-31.0); MEAN CORPUSCULAR HGB CONC 34.3 g/dL (33.0-37.0); MEAN PLATELET VOLUME 10.8 fL (7.2-11.7); MONO # 0.2 K/uL (0.0-0.8); MONO % 4.4 % (0.0-10.0); NEUT # 3.1 K/uL (1.8-7.0); NEUT % 83.8 % (50.0-75.0); NRBC % 0.1 % (0.0-2.0); RBC 4.27 Mil/uL (3.80-5.20); RED CELL DISTRIBUTION WIDTH 13.7 % (11.5-14.5); WHITE BLOOD COUNT 3.7 K/uL (4.8-10.8)
[2018-10-10 14:51] LABS: SQUAMOUS EPITHIAL 2 /hpf (0-5); URINE BILIRUBIN NEGATIVE (NEGATIVE); URINE BLOOD NEGATIVE (NEGATIVE); URINE CLARITY Clear (Clear); URINE COLOR Yellow (YELLOW); URINE GLUCOSE (UA) NORMAL (Normal); URINE LEUKOCYTE ESTERASE 1+ Leu/uL (Negative); URINE PROTEIN NEGATIVE (NEGATIVE); URINE UROBILINOGEN NORMAL mg/dL (0.2-1.0)
[2018-10-10 15:01] LABS: ALB/GLOB RATIO 1.1 (1.0-2.1); ALBUMIN 3.8 g/dL (3.5-5.0); ALT/SGPT 17 U/L (9-52); AST/SGOT 48 U/L (14-36); BLOOD UREA NITROGEN 14 mg/dL (7-17); CALCIUM 8.6 mg/dl (8.6-10.4); GFR NON-AFRICAN AMERICAN > 60
--- NOTE | 2018-10-10 15:08 | CP.PCM.CON ---
History of Present Illness - History of Present Illness History of Present Illness: Surgery Consult Note for Dr. Stewart Consult: PAM kohli HPI: 53 year old female, past medical history significant for SLE, CHF s/p pacemaker, and HTN, who presents to [facility] with worsening left lower extremity wound. Patient states 1 month ago she noticed a wound on the posterior aspect of the left lower extremity. She also found similar smaller wounds on the right lower extremity and left gluteus. Three weeks ago the LLE wound began draining serosanguinous fluid and formed a eschar. Patient states that recently the pain has become unbearable and she is unable to bear weight on the left leg. She has never had such symptoms before. Currently on Prednisone 10mg and Cellcept for SLE. No recent medication changes, changes in diet, recent travel, or sick contacts. Denies f/c, n/v/d, SOB, CP, abdominal pain, or urinary symptoms. PMH: See above PSH: Pacemaker FH: Noncontributory SH: Denies tobacco, alcohol, drugs ALL: NKDA Meds: See MAR and HPI Rheum: Dr. Patel Review of Systems - Constitutional Constitutional: Weakness. absent: Chills, Fever, Weight Loss - EENT Eyes: absent: Blurred Vision, Change in Vision Nose/Mouth/Throat: absent: Nasal Congestion, Nasal Discharge - Cardiovascular Cardiovascular: absent: Chest Pain, Dyspnea - Respiratory Respiratory: absent: Cough, Hemoptysis - Gastrointestinal Gastrointestinal: absent: Abdominal Pain, Nausea, Vomiting - Genitourinary Genitourinary: absent: Difficulty Urinating, Dysuria - Musculoskeletal Musculoskeletal: absent: Atrophy, Back Pain, Neck Pain - Integumentary Integumentary: Changing Lesions, Erythema, Non-Healing Lesions, Rash, Skin Ulcer, Swelling, Wounds - Neurological Neurological: absent: Confusion, Numbness - Psychiatric Psychiatric: absent: Anxiety, Depression Past Patient History - Infectious Disease Hx of Infectious Diseases: None - Tetanus Immunizations Tetanus Immunization: Unknown - Past Medical History & Family History Past Medical History?: Yes - Past Social History Smoking Status: Never Smoked - CARDIAC Hx Cardia Arrhythmia: Yes Hx Congestive Heart Failure: Yes Hx Hypertension: Yes Hx Pacemaker: Yes - PULMONARY Hx Pneumonia: Yes - NEUROLOGICAL Hx Neurological Disorder: No - HEENT Hx HEENT Problems: No - RENAL Hx Chronic Kidney Disease: No - ENDOCRINE/METABOLIC Hx Endocrine Disorders: Yes Hx Systemic Lupus Erythematosus: Yes - HEMATOLOGICAL/ONCOLOGICAL Hx Blood Disorders: No - INTEGUMENTARY Hx Dermatological Problems: No - MUSCULOSKELETAL/RHEUMATOLOGICAL Hx Falls: No - GASTROINTESTINAL Hx Gastrointestinal Disorders: No - GENITOURINARY/GYNECOLOGICAL Hx Genitourinary Disorders: No - PSYCHIATRIC Hx Substance Use: No - SURGICAL HISTORY Hx Surgeries: Yes Hx Section: Yes (X1) - ANESTHESIA Hx Anesthesia: Yes Hx Anesthesia Reactions: No Meds Allergies/Adverse Reactions: Allergies Allergy/AdvReac Type Severity Reaction Status Date / Time No Known Allergies Allergy Verified 10/10/18 11:42 Physical Exam - Constitutional Appears: Well, Non-toxic - Head Exam Head Exam: ATRAUMATIC, NORMAL INSPECTION, NORMOCEPHALIC - Eye Exam Eye Exam: EOMI Pupil Exam: PERRL - ENT Exam ENT Exam: Mucous Membranes Moist - Respiratory Exam Respiratory Exam: NORMAL BREATHING PATTERN. absent: Wheezes, Respiratory Distress - Cardiovascular Exam Additional comments: scar over Left chest s/p pacemaker - GI/Abdominal Exam GI & Abdominal Exam: Normal Bowel Sounds, Soft. absent: Tenderness - Extremities Exam Extremities exam: Positive for: calf tenderness, pedal edema, pedal pulses present Additional comments: posterior left lower extremity - 10x2cm eschar with serosangiunous drainage, tender to palpation small eschar on RLE and Left gluteus as well palpable DP pulses, faint PT pulses (1+) ROM intact Sensation intact - Neurological Exam Neurological exam: Alert, Oriented x3 - Psychiatric Exam Psychiatric exam: Normal Affect, Normal Mood - Skin Skin Exam: Erythema, Mottled, Rash Results - Vital Signs Recent Vital Signs: Last Vital Signs Temp 97.5 F L 10/10/18 11:38 Pulse 80 10/10/18 11:38 Resp 17 10/10/18 11:38 BP 134/87 10/10/18 11:38 Pulse Ox 100 10/10/18 14:46 - Labs Result Diagrams: 10/10/18 14:39 10/10/18 14:39 Labs: Laboratory Results - last 24 hr 10/10/18 10/10/18 10/10/18 14:39 14:39 14:39 WBC 3.7 L RBC 4.27 Hgb 13.0 Hct 37.9 MCV 88.9 MCH 30.5 MCHC 34.3 RDW 13.7 Plt Count 171 MPV 10.8 Neut % (Auto) 83.8 H Lymph % (Auto) 10.7 L [place] % (Auto) 4.4 Eos % (Auto) 0.6 Baso % (Auto) 0.5 Neut # (Auto) 3.1 Lymph # (Auto) 0.4 L [place] # (Auto) 0.2 Eos # (Auto) 0.0 Baso # (Auto) 0.0 Sodium 140 Potassium 4.2 Chloride 103 Carbon Dioxide 28 Anion Gap 14 BUN 14 Creatinine 0.7 Est GFR ( Amer) > 60 Est GFR (Non-Af Amer) > 60 Random Glucose 92 Calcium 8.6 Total Bilirubin 1.0 AST 48 H D ALT 17 Alkaline Phosphatase 43 Total Protein 7.4 Albumin 3.8 Globulin 3.5 Albumin/Globulin Ratio 1.1 Urine Color Yellow Urine Clarity Clear Urine pH 6.0 Ur Specific [place] 1.016 Urine Protein Negative Urine Glucose (UA) Normal Urine Ketones Negative Urine Blood Negative Urine Nitrate Negative Urine Bilirubin Negative Urine Urobilinogen Normal Ur Leukocyte Esterase 1+ H Urine WBC (Auto) 12 H Urine RBC (Auto) 1 Ur Squamous Epith Cells 2 Assessment & Plan - Assessment and Plan (Free Text) Assessment: 53F PMH of SLE, CHF, HTN w/ LLE eschar draining serosanguinous fluid Plan: Can apply Kerlex or 4x4 dressings as needed for drainage Current texture and characteristics do not support debridement If wound begins to slough or becomes infectious in nature, will need surgical re-evaluation No surgical intervention at this present time Recommend Rheum consult for management of SLE flare Medical management per primary team D/w Dr. Terry Dutton PGY1
[2018-10-10 15:16] LABS: BARBITURATES, UR NEGATIVE (NEGATIVE); BENZODIAZEPINES, UR NEGATIVE (NEGATIVE); OPIATES, UR NEGATIVE (NEGATIVE); PHENCYCLIDINE, UR NEGATIVE (NEGATIVE)
[2018-10-10 15:27] VITALS: RESP 20
[2018-10-10] MEDS ORDERED: Morphine 4 MG/ML VIAL IV ONE (15:36)
--- NOTE | 2018-10-10 16:12 | CP.PCM.HP ---
<Fabrice Heredia - Last Filed: 10/10/18 17:16> History of Present Illness - History of Present Illness History of Present Illness: PGY1 H and P for Dr. Johnson Patient is a 53-year-old female with a history of HTN, CAD, SLE and HFrEF who presents to the emergency department with her daughter for one month of lower leg ulcers. The patient states that the ulcers started as small and black and have become increasing larger on her legs and butt. The ulcers are very painful, itchy and burning. Last night one ulcer popped and released blood and watery fluid that smelled bad. The patient has never had this before. The patient saw Dr. [place] [employer] last week who gave her a cream for her legs, but that didnt help. Patient was diagnosed with lupus 6 years ago. The patient has never had blood clots or a stroke before. The patient has not traveled recently, has no sick contacts, changes in diet, or been hiking. The patient endorses fever that is helped by taking Tylenol 500 mg every 4 hours, night sweats, and chills. Additionally, the patient has had vomiting and nausea since last night, and one week of left lower extremity weakness. Denies vision changes, chest pain, SOB, headache, lightheadedness, dizziness, diarrhea, dysuria, headache, falls or syncope, hematuria, melena, hematochezia. PMH: HTN, CAD, SLE, HFrEF Surg: x1, defibrillator/pacemaker Allergies: NKDA Social: denies tobacco, alcohol, drugs Fam hx: denies Meds: Cellcept (for last 4 years), Prednisone 10 mg PO daily, Plavix 75 mg PO daily, Carvedilol 25 mg PO BID, ASA 81 mg PO daily, Lasix 40 mg PO daily, Pepcid 20 mg PO BID, Crestor 10 mg PO daily, Vasotec 5 mg PO daily PMD: Dr. Wong ([facility]) Rheum: [facility] Cardio: unknown name, hasn't seen in over 1 year Present on Admission - Present on Admission Any Indicators Present on Admission: No Review of Systems - Review of Systems All systems: reviewed and no additional remarkable complaints except (as per HPI ) Past Patient History - Infectious Disease Hx of Infectious Diseases: None - Tetanus Immunizations Tetanus Immunization: Unknown - Past Medical History & Family History Past Medical History?: Yes - Past Social History Smoking Status: Never Smoked - CARDIAC Hx Cardia Arrhythmia: Yes Hx Congestive Heart Failure: Yes Hx Hypertension: Yes Hx Pacemaker: Yes - PULMONARY Hx Pneumonia: Yes - NEUROLOGICAL Hx Neurological Disorder: No - HEENT Hx HEENT Problems: No - RENAL Hx Chronic Kidney Disease: No - ENDOCRINE/METABOLIC Hx Endocrine Disorders: Yes Hx Systemic Lupus Erythematosus: Yes - HEMATOLOGICAL/ONCOLOGICAL Hx Blood Disorders: No - INTEGUMENTARY Hx Dermatological Problems: No - MUSCULOSKELETAL/RHEUMATOLOGICAL Hx Falls: No - GASTROINTESTINAL Hx Gastrointestinal Disorders: No - GENITOURINARY/GYNECOLOGICAL Hx Genitourinary Disorders: No - PSYCHIATRIC Hx Substance Use: No - SURGICAL HISTORY Hx Surgeries: Yes Hx Section: Yes (X1) - ANESTHESIA Hx Anesthesia: Yes Hx Anesthesia Reactions: No Meds Allergies/Adverse Reactions: Allergies Allergy/AdvReac Type Severity Reaction Status Date / Time No Known Allergies Allergy Verified 10/10/18 11:42 Physical Exam - Constitutional Appears: Non-toxic, No Acute Distress - Head Exam Head Exam: ATRAUMATIC, NORMAL INSPECTION - Eye Exam Eye Exam: EOMI, Normal appearance, PERRL - ENT Exam ENT Exam: Mucous Membranes Moist - Respiratory Exam Respiratory Exam: Clear to Auscultation Bilateral. absent: Rales, Rhonchi, Wheezes, Respiratory Distress - Cardiovascular Exam Cardiovascular Exam: REGULAR RHYTHM, +S1, +S2. absent: Tachycardia Additional comments: 2+ radial pulses bilaterally - GI/Abdominal Exam GI & Abdominal Exam: Normal Bowel Sounds, Soft. absent: Distended, Firm, Guardi ng, Rebound, Tenderness - Extremities Exam Extremities exam: Positive for: tenderness (to bilateral lower extremities), pedal pulses present (1+ bilateral DP pulse) Additional comments: (+) large ischemic ulcers with eschar of the medial left lower extremity, (+) small ischemic ulcer with eschar to the left anterior knee, (+) large ischemic ulcer with eschar of the right posterior lower extremity; all areas are tender to palpation, minimal bleeding from open areas (+) livedo reticular-like areas of blanching erythema in the bilateral upper and lower extremities, much more prominent in the bilateral lower extremities extending to the distal femur (+) two small ischemic ulcers with eschar to the left medial buttocks - Back Exam Back exam: NORMAL INSPECTION. absent: CVA tenderness (L), CVA tenderness (R) - Neurological Exam Neurological exam: Alert, CN II-XII Intact, Oriented x3 Additional comments: (+) 5/5 strength in bilateral upper extremities, 5/5 right lower extremity strength, 4/5 left lower extremity strength due to pain (+) decreased sensation to the left lower extremity when compared to the right, up to the knees. (+) good capillary refill in distal extremities, able to move toes without problems (+) darker skin coloration to the bilateral lower extremities, minimally colder than the rest of the body as well; no cyanosis no distal toe lesions - Psychiatric Exam Psychiatric exam: Anxious, Normal Affect, Normal Mood - Skin Skin Exam: Dry, Rash (see extremity exam), Warm Results - Vital Signs Recent Vital Signs: Last Vital Signs Temp 98.2 F 10/10/18 15:26 Pulse 78 10/10/18 15:26 Resp 20 10/10/18 15:26 BP 130/72 10/10/18 15:26 Pulse Ox 97 10/10/18 15:26 - Labs Result Diagrams: 10/10/18 14:39 10/10/18 14:39 Labs: Laboratory Results - last 24 hr 10/10/18 10/10/18 10/10/18 14:39 14:39 14:39 WBC 3.7 L RBC 4.27 Hgb 13.0 Hct 37.9 MCV 88.9 MCH 30.5 MCHC 34.3 RDW 13.7 Plt Count 171 MPV 10.8 Neut % (Auto) 83.8 H Lymph % (Auto) 10.7 L Forrest % (Auto) 4.4 Eos % (Auto) 0.6 Baso % (Auto) 0.5 Neut # (Auto) 3.1 Lymph # (Auto) 0.4 L Forrest # (Auto) 0.2 Eos # (Auto) 0.0 Baso # (Auto) 0.0 Sodium 140 Potassium 4.2 Chloride 103 Carbon Dioxide 28 Anion Gap 14 BUN 14 Creatinine 0.7 Est GFR ( Amer) > 60 Est GFR (Non-Af Amer) > 60 Random Glucose 92 Calcium 8.6 Total Bilirubin 1.0 AST 48 H D ALT 17 Alkaline Phosphatase 43 Total Protein 7.4 Albumin 3.8 Globulin 3.5 Albumin/Globulin Ratio 1.1 Urine Color Yellow Urine Clarity Clear Urine pH 6.0 Ur Specific [place] 1.016 Urine Protein Negative Urine Glucose (UA) Normal Urine Ketones Negative Urine Blood Negative Urine Nitrate Negative Urine Bilirubin Negative Urine Urobilinogen Normal Ur Leukocyte Esterase 1+ H Urine WBC (Auto) 12 H Urine RBC (Auto) 1 Ur Squamous Epith Cells 2 Urine Opiates Screen Urine Methadone Screen Ur Barbiturates Screen Ur Phencyclidine Scrn Ur Amphetamines Screen U Benzodiazepines Scrn U Oth Cocaine Metabols U Cannabinoids Screen 10/10/18 14:39 WBC RBC Hgb Hct MCV MCH MCHC RDW Plt Count MPV Neut % (Auto) Lymph % (Auto) Forrest % (Auto) Eos % (Auto) Baso % (Auto) Neut # (Auto) Lymph # (Auto) Forrest # (Auto) Eos # (Auto) Baso # (Auto) Sodium Potassium Chloride Carbon Dioxide Anion Gap BUN Creatinine Est GFR ( Amer) Est GFR (Non-Af Amer) Random Glucose Calcium Total Bilirubin AST ALT Alkaline Phosphatase Total Protein Albumin Globulin Albumin/Globulin Ratio Urine Color Urine Clarity Urine pH Ur Specific [place] Urine Protein Urine Glucose (UA) Urine Ketones Urine Blood Urine Nitrate Urine Bilirubin Urine Urobilinogen Ur Leukocyte Esterase Urine WBC (Auto) Urine RBC (Auto) Ur Squamous Epith Cells Urine Opiates Screen Negative Urine Methadone Screen Negative Ur Barbiturates Screen Negative Ur Phencyclidine Scrn Negative Ur Amphetamines Screen Negative U Benzodiazepines Scrn Negative U Oth Cocaine Metabols Negative U Cannabinoids Screen Negative Assessment & Plan - Assessment and Plan (Free Text) Assessment: Patient is a 53-year-old female with a history of HTN, CAD, SLE and CHF? who presents to the emergency department with her daughter for one month of lower leg ulcers, worse over the past week. 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 Stewart, consulted in [facility] ED. Infectious disease, Dr. Maldonado, consulted. Rheumatology, Dr. Patel, consulted. Recommends anticoagulation ideally with warfarin, can bridge with lovenox or heparin. Wound care nurse, Arnie Beebe, consulted. Recommendations are to apply nickel thick amount of medihoney, then cover wi th xeroform and thick bulky dressings to be changed daily. Pt will need full thickness punch biopsy for definitive diagnosis of Livedoid vasculopathy F/u bilateral lower extremity venous and arterial duplex F/u ESR, CRP, coags, blood culture x2, wound culture, punch biopsy results History of Systolic Heart Failure s/p AICD (03/2016) Hx CAD Echo 09/2017: Mod/severe systolic dysfunction with EF 30-35%, mild TR Myocardial perfusion test in 09/2017 shows large fixed anterior and apical defect suggestive of prior MA. EF 32%. No stress induced ischemia Continue home carvedilol 25 mg PO BID Hold home ASA due to plan to anticoagulate and for punch biopsy Continue home Plavix 75 mg PO daily Continue home Enalapril 5 mg PO daily Continue home Crestor 10 mg PO QHS Continue home Lasix 40 mg PO QD Hx Hypertension Resumed home medications: BB, FRANTZ-i as above 09/2017 HgA1C 5.6, Lipid panel - WNL Hx SLE with lupus nephritis Dr. Patel, rheumatology, consulted. PPx: No indication for GI ppx SCD contraindicated due to ulcers; Plavix and heparin/lovenox to be initiated after bedside punch biopsy HHD Dispo: med/surg obs. F/u cultures, pt would benefit from broad spectrum antibiotics at this time. F/u Art/Tra duplexes. F/u ID/Rheum recs. Case discussed with Dr. Elizabeth Heredia PGY1 <Basilio Johnson - Last Filed: 10/12/18 14:30> Results - Vital Signs Recent Vital Signs: Last Vital Signs Temp 98.3 F 10/12/18 00:00 Pulse 64 10/12/18 00:00 Resp 20 10/12/18 00:00 BP 105/67 10/12/18 00:00 Pulse Ox 96 10/12/18 00:00 - Labs Result Diagrams: 10/12/18 06:13 10/12/18 06:13 Labs: Laboratory Results - last 24 hr 10/11/18 10/11/18 10/11/18 07:26 07:26 14:08 WBC 3.4 L RBC 3.95 Hgb 12.1 Hct 35.3 MCV 89.2 MCH 30.5 MCHC 34.2 RDW 14.1 Plt Count 149 MPV 10.5 Neut % (Auto) 78.8 H Lymph % (Auto) 14.2 L Forrest % (Auto) 5.6 Eos % (Auto) 0.9 Baso % (Auto) 0.5 Neut # (Auto) 2.7 Lymph # (Auto) 0.5 L Forrest # (Auto) 0.2 Eos # (Auto) 0.0 Baso # (Auto) 0.0 ESR 103 H PT 12.1 INR 1.1 APTT 52.9 H D Sodium 139 Potassium 3.6 Chloride 104 Carbon Dioxide 25 Anion Gap 13 BUN 16 Creatinine 1.3 H Est GFR ( Amer) 52 Est GFR (Non-Af Amer) 43 Random Glucose 100 Calcium 8.2 L Phosphorus 4.1 Magnesium 1.8 Total Bilirubin 0.7 AST 31 ALT 19 Alkaline Phosphatase 48 C-Reactive Protein 48.80 H Total Protein 6.6 Albumin 3.2 L Globulin 3.3 Albumin/Globulin Ratio 1.0 U Random Total Protein Random Vancomycin IgG IgA IgM Complement C3 Complement C4 Hepatitis A IgM Ab Hep Bs Antigen Hep B Core IgM Ab Hepatitis C Antibody 10/11/18 10/11/18 10/11/18 14:08 14:08 14:12 WBC RBC Hgb Hct MCV MCH MCHC RDW Plt Count MPV Neut % (Auto) Lymph % (Auto) Forrest % (Auto) Eos % (Auto) Baso % (Auto) Neut # (Auto) Lymph # (Auto) Forrest # (Auto) Eos # (Auto) Baso # (Auto) ESR PT INR APTT Sodium Potassium Chloride Carbon Dioxide Anion Gap BUN Creatinine Est GFR ( Amer) Est GFR (Non-Af Amer) Random Glucose Calcium Phosphorus Magnesium Total Bilirubin AST ALT Alkaline Phosphatase C-Reactive Protein Total Protein Albumin Globulin Albumin/Globulin Ratio U Random Total Protein Random Vancomycin IgG 1281.1 IgA 490.9 H IgM 84.7 Complement C3 69.0 L Complement C4 9.3 L Hepatitis A IgM Ab Negative Hep Bs Antigen Negative Hep B Core IgM Ab Negative Hepatitis C Antibody Negative 10/11/18 10/11/18 10/12/18 21:40 22:59 06:13 WBC 3.2 L RBC 4.01 Hgb 12.2 Hct 35.8 MCV 89.2 MCH 30.5 MCHC 34.1 RDW 14.0 Plt Count 165 MPV 10.6 Neut % (Auto) 85.5 H Lymph % (Auto) 10.6 L Forrest % (Auto) 3.6 Eos % (Auto) 0.0 Baso % (Auto) 0.3 Neut # (Auto) 2.7 Lymph # (Auto) 0.3 L Forrest # (Auto) 0.1 Eos # (Auto) 0.0 Baso # (Auto) 0.0 ESR PT INR APTT 115.6 H* D Sodium Potassium Chloride Carbon Dioxide Anion Gap BUN Creatinine Est GFR ( Amer) Est GFR (Non-Af Amer) Random Glucose Calcium Phosphorus Magnesium Total Bilirubin AST ALT Alkaline Phosphatase C-Reactive Protein Total Protein Albumin Globulin Albumin/Globulin Ratio U Random Total Protein 20.0 H Random Vancomycin IgG IgA IgM Complement C3 Complement C4 Hepatitis A IgM Ab Hep Bs Antigen Hep B Core IgM Ab Hepatitis C Antibody 10/12/18 10/12/18 10/12/18 06:13 06:13 06:13 WBC RBC Hgb Hct MCV MCH MCHC RDW Plt Count MPV Neut % (Auto) Lymph % (Auto) Forrest % (Auto) Eos % (Auto) Baso % (Auto) Neut # (Auto) Lymph # (Auto) Forrest # (Auto) Eos # (Auto) Baso # (Auto) ESR PT INR APTT 36.4 H D Sodium 141 Potassium 4.5 Chloride 105 Carbon Dioxide 27 Anion Gap 13 BUN 15 Creatinine 1.2 Est GFR ( Amer) 57 Est GFR (Non-Af Amer) 47 Random Glucose 109 H Calcium 8.6 Phosphorus 4.3 Magnesium 2.2 Total Bilirubin 0.5 AST 28 ALT 19 Alkaline Phosphatase 48 C-Reactive Protein Total Protein 6.6 Albumin 3.4 L Globulin 3.1 Albumin/Globulin Ratio 1.1 U Random Total Protein Random Vancomycin 8.5 IgG IgA IgM Complement C3 Complement C4 Hepatitis A IgM Ab Hep Bs Antigen Hep B Core IgM Ab Hepatitis C Antibody Attending/Attestation - Attestation I have personally seen and examined this patient.: Yes I have fully participated in the care of the patient.: Yes I have reviewed all pertinent clinical information: Yes Notes (Text): This is a 52 yo female, originally from [facility], with past medical hx of CAD, CHF,HTN, AICD/pacemaker, lupus, MA, lupus nephritis, presenting to hospital with chief complaint leg pain. Pt is accompanied by daughter. Patient follows our medical clinic and see Dr Patel clinical documentation nurse for her SLE. Patient states that the wound is very painful,itchy and it hayes. she was seen by Dr Patel a week ago and a cream was prescribed for her to apply topicaly. It is getting worse with discharge. denies fever. Patient takes cellcept 500mg bid and prednisone 10mg daily .compliance with her treatment and taking it last 4 years. she also on cardiac meds asprin,lasix,crestor,coreg,vasotec . On examination patient has necrotic wounds on her back of left leg lower part of calf 9.5 x 7 cm, with eschar, no drainage. Right leg-just below calf-8 x 6.5 cm, left one with order and signs of infection with discharge. Right leg is dry surgery was consulted by ER physician Patient destiny immunosuppressive meds with necrotic wound with signs of infection(odor,inflammed edges and discharge)-we will start on antibiotics started on zosyn and vanco,Dr Maldonado was consulted we will monitor creatinine,hold lasix and do echo spoke to Dr Patel who agrees with continue cellcept 500mg bid and prednisone 10mg treat the infection and consider anticoagulation with Warfarin. Bilateral venous doppler ordered we started on Therapeutic lovenox and Dr Patel was consulted. We will ask deejay for possible biopsy for definite diagnosis.
[2018-10-10 17:24] LABS: INR 1.1; PARTIAL THROMBOPLASTIN TIME 39.7 SECONDS (21-34); PROTHROMBIN TIME 12.2 SECONDS (9.7-12.2)
[2018-10-10] MEDS: Vancomycin 1 gm/NS 200 ml 1 GM/200 ML BAG IVPB SCH (18:40)
[2018-10-10] MEDS ORDERED: Piperacill/Tazo 3.375gm in Dex 3.375 GM/50 ML BAG IVPB SCH ×2 (20:00→21:00)
[2018-10-10] MEDS ORDERED: Enoxaparin 80 mg Syringe SC SCH (22:00)
--- NOTE | 2018-10-10 23:19 | CP.PCM.CON ---
History of Present Illness - History of Present Illness History of Present Illness: 53 year old female, past medical history significant for SLE, CHF s/p pacemaker, and HTN, who presents to [facility] with worsening left lower extremity wound. Patient states 1 month ago she noticed a wound on the posterior aspect of the left lower extremity. She also found similar smaller wounds on the right lower extremity and left gluteus. Three weeks ago the LLE wound began draining serosanguinous fluid and formed a eschar. Currently on Prednisone 10mg and Cellcept for SLE. PMH: SLE PSH: Pacemaker FH: Noncontributory SH: Denies tobacco, alcohol, drugs ALL: NKDA Review of Systems - Constitutional Constitutional: Weakness. absent: Chills, Fever, Weight Loss - EENT Eyes: absent: Blurred Vision, Change in Vision Nose/Mouth/Throat: absent: Nasal Congestion, Nasal Discharge - Cardiovascular Cardiovascular: absent: Chest Pain, Dyspnea - Respiratory Respiratory: absent: Cough, Hemoptysis - Gastrointestinal Gastrointestinal: absent: Abdominal Pain, Nausea, Vomiting - Genitourinary Genitourinary: absent: Difficulty Urinating, Dysuria - Musculoskeletal Musculoskeletal: absent: Atrophy, Back Pain, Neck Pain - Integumentary Integumentary: Changing Lesions, Erythema, Non-Healing Lesions, Rash, Skin Ulcer, Swelling, Wounds - Neurological Neurological: absent: Confusion, Numbness - Psychiatric Psychiatric: absent: Anxiety, Depression Review of Systems - Review of Systems All systems: reviewed and no additional remarkable complaints except - Constitutional Constitutional: As Per HPI - EENT Eyes: absent: As Per HPI, Blind Spots, Blurred Vision, Change in Vision, Decreased Night Vision, Diplopia, Discharge, Dry Eye, Exophthalmos, Floaters, Irritation, Itchy Eyes, Loss of Peripheral Vision, Pain, Photophobia, Requires Corrective Lenses, Sees Flashes, Spots in Vision, Tunnel Vision, Other Visual Disturbances, Loss of Vision, Other Ears: absent: As Per HPI, Decreased Hearing, Ear Discharge, Ear Pain, Tinnitus, Abnormal Hearing, Disequilibrium, Dizziness, Other Nose/Mouth/Throat: absent: As Per HPI, Epistaxis, Nasal Congestion, Nasal Discharge, Nasal Obstruction, Nasal Trauma, Nose Pain, Post Nasal Drip, Sinus Pain, Sinus Pressure, Bleeding Gums, Change in Voice, Dental Pain, Dry Mouth, Dysphagia, Halitosis, Hoarsness, Lip Swelling, Mouth Lesions, Mouth Pain, Odynophagia, Sore Throat, Throat Swelling, Tongue Swelling, Facial Pain, Neck Pain, Neck Mass, Other - Breasts Breasts: absent: As Per HPI, Change in Shape, Mass, Pain, Nipple Discharge, Nipple Inversion, Skin Changes, Swelling, Other - Cardiovascular Cardiovascular: As Per HPI - Gastrointestinal Gastrointestinal: absent: As Per HPI, Abdominal Pain, Belching, Bloating, Change in Bowel Habits, Change in Stool Character, Coffee Ground Emesis, Constipation, Cramping, Diarrhea, Dyspepsia, Dysphagia, Early Satiety, Excessive Flatus, Fecal Incontinence, Heartburn, Hematemesis, Hematochezia, Loose Stools, Melena, Nausea, Odynophagia, Temesmus, Vomiting, Other - Genitourinary Genitourinary: absent: As Per HPI, Change in Urinary Stream, Difficulty Ur inating, Dysuria, Flank Pain, Hematuria, Pyuria, Nocturia, Urinary Incontinence, Urinary Frequency, Urinary Hesitance, Urinary Urgency, Voiding Freq/Small Amts, Freq UTI, Hx Renal/Bladder Calculi, Hx /Renal Surgery, Bladder Distension, Other - Reproductive: Female Reproductive:Female: absent: As Per HPI, Amenorrhea, Amenorrhea/ Control, Currently Menstual, Cycle <21 Days, Cycle >35 Days, Cycle Variable, Menses 1-7 Days, Menses >/= 8 Days, Menses Variable, Cycle > 4 Weeks Between, No Menses for 6 Months, Heavy Menses, Light Menses, Normal Menses, Spotting Between Cycles, S/P Hysterectomy, Menopausal, Post Menopausal, Premenarche, Abnormal Vaginal Bleeding, Dysmenorrhea, Dyspareunia, Genital Lesions, Genital Pruritis, Pelvic Pain, Prolapse Symptoms, Sexual Dysfunction, Vaginal Discharge, Vaginal Dryness, Vaginal Odor, Vaginal Pruritis, Other - Menstruation Menstruation: absent: As Per HPI, Amenorrhea, Amenorrhea/ Control, Currently Menstual, Cycle <21 Days, Cycle >35 Days, Cycle Variable, Menses 1-7 Days, Menses >/= 8 Days, Menses Variable, Cycle > 4 Weeks Between, No Menses for 6 Months, Heavy Menses, Light Menses, Normal Menses, Spotting Between Cycles, S/P Hysterectomy, Menopausal, Post Menopausal, Premenarche, Abnormal Vaginal Bleeding, Dysmenorrhea, Other - Musculoskeletal Musculoskeletal: As Per HPI - Integumentary Integumentary: As Per HPI, Skin Pain, Wounds - Neurological Neurological: absent: As Per HPI, Abnormal Gait, Abnormal Hearing, Abnormal Movements, Abnormal Speech, Behavioral Changes, Burning Sensations, Confusion, Convulsions, Disequilibrium, Dizziness, Numbness, Focal Weakness, Frequent Falls, Headaches, Lack of Coordination, Loss of Vision, Memory Loss, Paresthesias, Radicular Pain, Restless Legs, Sensory Deficit, Syncope, Tingling, Tremor, Vertigo, Weakness, Other Visual Disturbances, Other - Psychiatric Psychiatric: absent: Abnormal Sleep Pattern, Anhedonia, Anxiety, Auditory Hallucinations, Behavioral Changes, Change in Appetite, Change in Libido, Confusion, Depression, Difficulty Concentrating, Hallucinations, Homicidal Ideation, Hopelessness, Irritability, Memory Loss, Mood Swings, Panic Attacks, Paranoia, Suicidal Ideation, Visual Hallucinations, Tactile Hallucinations, Other - Endocrine Endocrine: absent: As Per HPI, Change in Body Appearance, Change in Libido, Cold Intolorance, Deepening of Voice, Excessive Sweating, Fatigue, Flushing, Heat Intolorance, Increase in Ring/Shoe/Hat Size, Palpitations, Polydipsia, Polyphagia, Polyuria, Other - Hematologic/Lymphatic Hematologic: absent: As Per HPI, Easy Bleeding, Easy Bruising, Lymphadenopathy, Other Past Patient History - Infectious Disease Hx of Infectious Diseases: None - Tetanus Immunizations Tetanus Immunization: Unknown - Past Medical History & Family History Past Medical History?: Yes - Past Social History Smoking Status: Never Smoked - CARDIAC Hx Cardia Arrhythmia: Yes Hx Congestive Heart Failure: Yes Hx Hypertension: Yes Hx Pacemaker: Yes - PULMONARY Hx Pneumonia: Yes - NEUROLOGICAL Hx Neurological Disorder: No - HEENT Hx HEENT Problems: No - RENAL Hx Chronic Kidney Disease: No - ENDOCRINE/METABOLIC Hx Endocrine Disorders: Yes Hx Systemic Lupus Erythematosus: Yes - HEMATOLOGICAL/ONCOLOGICAL Hx Blood Disorders: No - INTEGUMENTARY Hx Dermatological Problems: No - MUSCULOSKELETAL/RHEUMATOLOGICAL Hx Falls: No - GASTROINTESTINAL Hx Gastrointestinal Disorders: No - GENITOURINARY/GYNECOLOGICAL Hx Genitourinary Disorders: No - PSYCHIATRIC Hx Substance Use: No - SURGICAL HISTORY Hx Surgeries: Yes Hx Section: Yes (X1) - ANESTHESIA Hx Anesthesia: Yes Hx Anesthesia Reactions: No Meds Allergies/Adverse Reactions: Allergies Allergy/AdvReac Type Severity Reaction Status Date / Time No Known Allergies Allergy Verified 10/10/18 11:42 - Medications Medications: Current Medications Carvedilol (Coreg) 25 mg PO BID [facility] Enalapril Maleate (Vasotec) 5 mg PO DAILY [facility] Enoxaparin Sodium (Lovenox) 80 mg SC Q12 [facility] Famotidine (Pepcid) 20 mg PO DAILY [facility] Furosemide (Lasix) 40 mg PO DAILY [facility] Vancomycin/Sodium Chloride (Vancomycin 1 Gm/Ns 200 Ml) 1 gm in 200 mls @ 133 mls/hr IVPB Q12H [facility]; Protocol Stop: 10/15/18 18:01 Piperacillin Sod/Tazobactam Sod (Zosyn 3.375 Gm Iv Premix) 3.375 gm in 50 mls @ 100 mls/hr IVPB Q6H [facility]; Protocol Mycophenolate Mofetil (Cellcept Cap) 500 mg PO BID [facility] Rosuvastatin Calcium (Crestor) 10 mg PO HS [facility] Tramadol HCl (Ultram) 50 mg PO Q6H PRN PRN Reason: Pain, severe (8-10) Physical Exam - Constitutional Appears: Non-toxic, No Acute Distress, Chronically Ill - Head Exam Head Exam: ATRAUMATIC, NORMAL INSPECTION, NORMOCEPHALIC - Eye Exam Eye Exam: EOMI, Normal appearance, PERRL Pupil Exam: NORMAL ACCOMODATION, PERRL - ENT Exam ENT Exam: Mucous Membranes Moist, Normal Exam - Neck Exam Neck exam: Positive for: Normal Inspection - Respiratory Exam Respiratory Exam: Clear to Auscultation Bilateral, NORMAL BREATHING PATTERN - Cardiovascular Exam Cardiovascular Exam: REGULAR RHYTHM - GI/Abdominal Exam GI & Abdominal Exam: Normal Bowel Sounds, Soft. absent: Tenderness - Rectal Exam Rectal Exam: Deferred - Exam Exam: NORMAL INSPECTION - Extremities Exam Extremities exam: Positive for: normal inspection - Back Exam Back exam: NORMAL INSPECTION - Neurological Exam Neurological exam: Alert, CN II-XII Intact, Normal Gait, Oriented x3, Reflexes Normal - Psychiatric Exam Psychiatric exam: Normal Affect, Normal Mood - Skin Skin Exam: Dry Additional comments: ulcer left leg and right leg as described Results - Vital Signs Recent Vital Signs: Last Vital Signs Temp 98 F 10/10/18 16:40 Pulse 64 10/10/18 16:40 Resp 20 10/10/18 16:40 BP 122/75 10/10/18 16:40 Pulse Ox 98 10/10/18 16:40 - Labs Result Diagrams: 10/10/18 14:39 10/10/18 14:39 Labs: Laboratory Results - last 24 hr 10/10/18 10/10/18 10/10/18 14:39 14:39 14:39 WBC 3.7 L RBC 4.27 Hgb 13.0 Hct 37.9 MCV 88.9 MCH 30.5 MCHC 34.3 RDW 13.7 Plt Count 171 MPV 10.8 Neut % (Auto) 83.8 H Lymph % (Auto) 10.7 L [place] % (Auto) 4.4 Eos % (Auto) 0.6 Baso % (Auto) 0.5 Neut # (Auto) 3.1 Lymph # (Auto) 0.4 L [place] # (Auto) 0.2 Eos # (Auto) 0.0 Baso # (Auto) 0.0 PT INR APTT Sodium 140 Potassium 4.2 Chloride 103 Carbon Dioxide 28 Anion Gap 14 BUN 14 Creatinine 0.7 Est GFR ( Amer) > 60 Est GFR (Non-Af Amer) > 60 Random Glucose 92 Calcium 8.6 Total Bilirubin 1.0 AST 48 H D ALT 17 Alkaline Phosphatase 43 Total Protein 7.4 Albumin 3.8 Globulin 3.5 Albumin/Globulin Ratio 1.1 Urine Color Yellow Urine Clarity Clear Urine pH 6.0 Ur Specific S [place] 1.016 Urine Protein Negative Urine Glucose (UA) Normal Urine Ketones Negative Urine Blood Negative Urine Nitrate Negative Urine Bilirubin Negative Urine Urobilinogen Normal Ur Leukocyte Esterase 1+ H Urine WBC (Auto) 12 H Urine RBC (Auto) 1 Ur Squamous Epith Cells 2 Urine Opiates Screen Urine Methadone Screen Ur Barbiturates Screen Ur Phencyclidine Scrn Ur Amphetamines Screen U Benzodiazepines Scrn U Oth Cocaine Metabols U Cannabinoids Screen 10/10/18 10/10/18 14:39 17:11 WBC RBC Hgb Hct MCV MCH MCHC RDW Plt Count MPV Neut % (Auto) Lymph % (Auto) [place] % (Auto) Eos % (Auto) Baso % (Auto) Neut # (Auto) Lymph # (Auto) [place] # (Auto) Eos # (Auto) Baso # (Auto) PT 12.2 INR 1.1 APTT 39.7 H Sodium Potassium Chloride Carbon Dioxide Anion Gap BUN Creatinine Est GFR ( Amer) Est GFR (Non-Af Amer) Random Glucose Calcium Total Bilirubin AST ALT Alkaline Phosphatase Total Protein Albumin Globulin Albumin/Globulin Ratio Urine Color Urine Clarity Urine pH Ur Specific S [place] Urine Protein Urine Glucose (UA) Urine Ketones Urine Blood Urine Nitrate Urine Bilirubin Urine Urobilinogen Ur Leukocyte Esterase Urine WBC (Auto) Urine RBC (Auto) Ur Squamous Epith Cells Urine Opiates Screen Negative Urine Methadone Screen Negative Ur Barbiturates Screen Negative Ur Phencyclidine Scrn Negative Ur Amphetamines Screen Negative U Benzodiazepines Scrn Negative U Oth Cocaine Metabols Negative U Cannabinoids Screen Negative Assessment & Plan (1) Venous stasis ulcer Status: Acute (2) SLE (systemic lupus erythematosus related syndrome) Status: Chronic - Assessment and Plan (Free Text) Assessment: painful ulcers on lower extremitirs r/o venous stasis vs vasculitis Hx SLE Plan: cont wound care check cultures cont IV antibiotics
[2018-10-10] MEDS ORDERED: Piperacillin/Tazobact 3.375 GM in Sodium Chloride 100 ML IVPB SCH (23:30)
[2018-10-11] MEDS ORDERED: Piperacill/Tazo 3.375gm in Dex 3.375 GM/50 ML BAG IVPB SCH (05:00)
[2018-10-11] MEDS: Vancomycin 1 gm/NS 200 ml 1 GM/200 ML BAG IVPB SCH (05:42)
[2018-10-11 07:33] LABS: BASO % 0.5 % (0.0-2.0); EOS % 0.9 % (0.0-4.0); HEMOGLOBIN 12.1 g/dL (11.0-16.0); LYMPH # 0.5 K/uL (1.0-4.3); LYMPH % 14.2 % (20.0-40.0); MEAN CELL VOLUME 89.2 fL (81.0-99.0); MEAN CORPUSCULAR HEMOGLOBIN 30.5 pg (27.0-31.0); MEAN CORPUSCULAR HGB CONC 34.2 g/dL (33.0-37.0); MEAN PLATELET VOLUME 10.5 fL (7.2-11.7); MONO # 0.2 K/uL (0.0-0.8); MONO % 5.6 % (0.0-10.0); NEUT # 2.7 K/uL (1.8-7.0); NEUT % 78.8 % (50.0-75.0); RBC 3.95 Mil/uL (3.80-5.20); RED CELL DISTRIBUTION WIDTH 14.1 % (11.5-14.5); WHITE BLOOD COUNT 3.4 K/uL (4.8-10.8)
--- NOTE | 2018-10-11 07:38 | CP.PCM.PN ---
<Fabrice Heredia - Last Filed: 10/11/18 16:22> Subjective - Date & Time of Evaluation Date of Evaluation: 10/11/18 Time of Evaluation: 11:30 - Subjective Subjective: PGY1 Medicine progress note for Dr. Johnson Pt seen and examined at bedside. No acute complaints. Pt seen and examined at bedside. Denies fevers, chills, chest pain, SOB, palpitations, abdominal pain, n/v/d, headache, dizziness, lethargy, numbness or tingling, urinary complaints. Continues to endorse pain in the lower extremities, but well controlled with Tr amadol. Objective - Vital Signs/Intake and Output Vital Signs (last 24 hours): Temp Pulse Resp BP Pulse Ox 97.4 F L 61 20 122/71 97 10/11/18 00:00 10/11/18 00:00 10/11/18 00:00 10/10/18 18:20 10/11/18 00:00 Intake and Output: 10/11/18 10/11/18 06:59 18:59 Intake Total 550 250 Balance 550 250 - Medications Medications: Current Medications Carvedilol (Coreg) 25 mg PO BID [facility] Last Admin: 10/10/18 18:20 Dose: 25 mg Enalapril Maleate (Vasotec) 5 mg PO DAILY [facility] Enoxaparin Sodium (Lovenox) 80 mg SC Q12 [facility] Last Admin: 10/10/18 21:04 Dose: 80 mg Famotidine (Pepcid) 20 mg PO DAILY [facility] Vancomycin/Sodium Chloride (Vancomycin 1 Gm/Ns 200 Ml) 1 gm in 200 mls @ 133 mls/hr IVPB Q12H [facility]; Protocol Stop: 10/15/18 18:01 Last Admin: 10/11/18 05:42 Dose: 133 mls/hr Piperacillin Sod/Tazobactam Sod (Zosyn 3.375 Gm Iv Premix) 3.375 gm in 50 mls @ 100 mls/hr IVPB Q8H [facility]; Protocol Last Admin: 10/11/18 05:08 Dose: 100 mls/hr Mycophenolate Mofetil (Cellcept Cap) 500 mg PO BID [facility] Last Admin: 10/10/18 18:30 Dose: 500 mg Pneumococcal Polyvalent Vaccine (Pneumovax 23 Vaccine) 0.5 ml IM .ONCE ONE Stop: 10/12/18 10:44 Rosuvastatin Calcium (Crestor) 10 mg PO HS [facility] Last Admin: 10/10/18 22:10 Dose: 10 mg Tramadol HCl (Ultram) 50 mg PO Q6H PRN PRN Reason: Pain, severe (8-10) - Labs Labs: 10/11/18 07:26 10/10/18 14:39 PT 12.2 SECONDS (9.7-12.2) 10/10/18 17:11 INR 1.1 10/10/18 17:11 APTT 39.7 SECONDS (21-34) H 10/10/18 17:11 Assessment and Plan - Assessment and Plan (Free Text) Assessment: Patient is a 53-year-old female with a history of HTN, CAD, SLE and CHF? who presents to the emergency department with her daughter for one month of lower leg ulcers, worse over the past week. 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 F/u vancomycin level morning 10/12 Tramadol 50 mg PO Q6H PRN for pain General surgery, Dr. Stewart, consulted in the [facility] ED. Infectious disease, Dr. Maldonado, consulted. Rheumatology, Dr. Patel, consulted. Recommends anticoagulation ideally with warfarin, can bridge with lovenox or heparin. Pt on heparin gtt Wound care nurse, Arnie Beebe, consulted. Recommendations are to apply nickel thick amount of medihoney, then cover with xeroform and thick bulky dressings to be changed daily. F/u bilateral lower extremity venous and arterial duplex, blood culture x2, wound culture ESR elevated at 103, CRP elevated at 48.80 Started Prednisone 15 mg PO daily KAROL Hx SLE Creatinine increased from 0.7 to 1.3 within 24 hours. Zosyn and Vancomycin held Home ACEi held Nephrology, Dr. Johnston, consulted. Renal US is unremarkable. F/u C3, C4, ANCA (MPO and [place]-3), rheumatoid factor and serum cryoglobulin levels, Imunnoglobulins Hepatitis panel is negative History of Systolic Heart Failure s/p AICD (03/2016) Hx CAD Echo 09/2017: Mod/severe systolic dysfunction with EF 30-35%, mild TR Myocardial perfusion test in 09/2017 shows large fixed anterior and apical defect suggestive of prior [place]. EF 32%. No stress induced ischemia Continue home carvedilol 25 mg PO BID Hold home ASA due to plan to anticoagulate and for punch biopsy Plavix 75 mg PO daily Hold Enalapril 5 mg PO daily due to KAROL Crestor 10 mg PO QHS Lasix 40 mg PO QD on hold due to KAROL. Pt normotensive and no clinical signs of fluid overload CXR shows mild venous congestion. Bibasilar breast and nipple shadows. Tortuous ectatic aorta. Mild cardiomegaly. Left sided Pacemaker F/u echocardiogram Hx Hypertension Carvedilol as above 09/2017 HgA1C 5.6, Lipid panel - WNL FRANTZ-i on hold due to KAROL Hx SLE with lupus nephritis Dr. Patel, rheumatology, consulted. Cellcept 1g PO BID PPx: Pepcid 20 mg PO daily SCD contraindicated due to ulcers; Plavix and heparin gtt HHD Case discussed with Dr. Elizabeth Heredia PGY1 <Basilio Johnson - Last Filed: 10/12/18 17:09> Objective - Vital Signs/Intake and Output Vital Signs (last 24 hours): Temp Pulse Resp BP Pulse Ox 98.7 F 62 20 95/63 L 97 10/11/18 15:59 10/11/18 15:59 10/11/18 15:59 10/11/18 18:14 10/11/18 15:59 Intake and Output: 10/11/18 10/11/18 06:59 18:59 Intake Total 550 750 Balance 550 750 - Medications Medications: Current Medications Carvedilol (Coreg) 25 mg PO BID [facility] Last Admin: 10/11/18 18:14 Dose: Not Given Enalapril Maleate (Vasotec) 5 mg PO DAILY [facility] Last Admin: 10/11/18 09:49 Dose: 5 mg Famotidine (Pepcid) 20 mg PO DAILY [facility] Last Admin: 10/11/18 09:51 Dose: 20 mg Heparin Sodium/Sodium Chloride (Heparin 76274 Units/250ml 1/2 Normal Saline) 25,000 units in 250 mls @ 14.125 mls/hr IV .[id number] [facility]; Protocol Last Admin: 10/11/18 14:47 Dose: 18 units/kg/hr, 14.125 mls/hr Ceftaroline Fosamil 600 mg/ (Sodium Chloride) 100 mls @ 100 mls/hr IVPB Q12H [facility]; Protocol Mycophenolate Mofetil (Cellcept) 1,000 mg PO BID [facility] Last Admin: 10/11/18 17:34 Dose: 1,000 mg Pneumococcal Polyvalent Vaccine (Pneumovax 23 Vaccine) 0.5 ml IM .ONCE ONE Stop: 10/12/18 10:44 Prednisone (Prednisone Tab) 15 mg PO DAILY [facility] Last Admin: 10/11/18 12:42 Dose: 15 mg Rosuvastatin Calcium (Crestor) 10 mg PO HS [facility] Last Admin: 10/10/18 22:10 Dose: 10 mg Tramadol HCl (Ultram) 50 mg PO Q6H PRN PRN Reason: Pain, severe (8-10) Last Admin: 10/11/18 17:38 Dose: 50 mg - Labs Labs: 10/11/18 07:26 10/11/18 07:26 PT 12.1 SECONDS (9.7-12.2) 10/11/18 14:08 INR 1.1 10/11/18 14:08 APTT 52.9 SECONDS (21-34) H D 10/11/18 14:08 Attending/Attestation - Attestation I have personally seen and examined this patient.: Yes I have fully participated in the care of the patient.: Yes I have reviewed all pertinent clinical information, including history, physical exam and plan: Yes Notes (Text): Seen and examined by me with the resident. Patient's pain is better on pain meds. Wound examined. His left leg wound gangrene with discharge /infected. right leg one is dry and gangrene blood cultures negative x24hrs Follow wound culture . No fever,leukocytosis creatinine went up to 1.3. Zosyn and Vanco discontinued and started on Teflaro. Patient has history of lupus nephritis .spoke to Dr Johnston Encephalographer. Her Cellcept dose increased to 1000mg po bid surgery is not planning for biopsy.we don't have a twenty one dealer or Location Worker to follow biopsy and give recommendation Spoke to Dr Patel. He is not planning to see her because he was paid for following patient's without medical insurance. We will continue wound care,control pain ,antibiotics and her cardiac meds.Follow kidney function. We will follow Echo. continue her home cardiac meds except lasix at this time.stop lovenox,We will start heparin,follow venous doppler to r/o DVT We spoke to the patient and her daughter about lack of inpatient complaint supervisor and twenty one dealer in our facility make us difficult to have a definite diagnosis of this gangrenous wound. We recommend to go to a hospital like [facility] and establish a clinic to follow [facility]. They understood the need for dermatology and Rheumatolgy clinic follow up to treat her ,diagnose,do biopsy and prevent further vascular wounds.
[2018-10-11 08:03] LABS: ALBUMIN 3.2 g/dL (3.5-5.0); CALCIUM 8.2 mg/dl (8.6-10.4)
[2018-10-11] MEDS ORDERED: Heparin25000 units/250ml 1/2NS 25,000 UNITS/250 ML BAG IV SCH (11:00)
--- NOTE | 2018-10-11 12:21 | CP.PCM.CON ---
History of Present Illness - History of Present Illness History of Present Illness: Nephrology Consultation Note: Assessment: Stable Acute Kidney Injury (N17.9) ? etiology. need work up for GN necrotic ulcer with livedo reticularis r/o vasculitis as cause chronic sys CHF with lvef 32%, hx of PPM/AICD, hypertension hyperlipidemia, SLE and lupus nephrits (f/up with Dr Patel), on prednisone and cellcept obesity Plan No acute need for renal replacement therapy at this time. Hypertension control with meds as ordered. Maintain hemodynamics stable. Avoid hypotension. Patient was on acei, but held due to KAROL. hold diuretics for now Monitor Input/Output, daily weights and renal function with basic metabolic panel continue with steroids. may need to hold cellcept if concerns of skin infection. will await further input from ID and rheum rheumatology consult Check urine spot protein/creatinine, albumin/creatinine ratio, renal sonogram Check GN work up as C3, C4, ANCA (MPO and CT-3), Hep B and Hep C serology along with rheumatoid factor and serum cryoglobulin levels [to be transported at room temperature] will also check for antiphospholipids abs Dose meds/antibiotics for reduced GFR. Avoid fleets enema/magnesium based laxatives. Avoid nephrotoxins/NSAIDs/ iodinated contrast (unless needed emergently) Glycemic control Further work up/management as per primary team Thanks for allowing me to participate in care of your patient. Will follow patient with you. Please call if any Qs. had d/w team Dr Yoandy Johnston Office: [phone] Chief Complaint; leg ulcers Reason for consult: Acute Kidney Injury HPI: Pt is a 53 F with hx of chronic sys CHF with lvef 32%, hx of PPM/AICD, hypertension (years) hyperlipidemia, SLE and lupus nephrits (f/up with Dr Patel), on prednisone and cellcept for many years presented with complaints of worsening skin ulcers on lower extremity. Denies OTC/herbal meds or NSAIDs No recent iodinated contrast exposure. No obvious episodes of low BP. non smoking or etoh/drugs besides skin ulcers, she feels usual health also reports easy bruising ROS: Cardiovascular: No chest pain. Pulmonary: No shortness of breath Gastrointestinal: denies abdominal pain No nausea. No vomiting. Genitourinary: No pain while urinating. Denies blood in urine. All other negative except as mentioned in HPI Physical Examination: General Appearance: Comfortable, in no acute respiratory distress, co-operative . obese female Vitals reviewed and noted as below Head; Atraumatic, normocephalic ENT: no ulcers no thrush. Tongue is midline. Oropharynx: no rash or ulcers. EYES: Pupils are equal, round and reactive to light accommodation. Eye muscles and extraocular movement intact. Sclera is anicteric. Neck; supple no lymphadenopathy, no thyromegaly or bruit Lungs: Normal respiratory rate/effort. Breath sounds bilateral equal and clear Heart: Normal rate. s1s2 normal. No rub or gallop. Extremities: no edema. No varicose veins Neurological: Patient is alert, awake and oriented to person, place and time. No focal deficit. Strength bilateral appropriate and equal Skin: Warm and dry. Normal turgor. Palpitation: Normal elasticity for age. ulcer left knee with necrotic/eschar. also with ulcers back of lower extremity both dressed there is also reticular livedo like rash on skin Abdomen: Abdomen is soft. Bowel sounds +. There is no abdominal tenderness, no guarding/rigidity no organomegaly Psych: normal insight and normal affect/mood MSK: no joint tenderness or swelling. Digits and nails normal, no deformity : kidney or bladder not palpable Labs/imaging reviewed. Past medical history, past surgical history, family history, social history, allergy reviewed and noted as below Family hx: no hx of CKD. Rest non-contributory Past Patient History - Infectious Disease Hx of Infectious Diseases: None - Tetanus Immunizations Tetanus Immunization: Unknown - Past Medical History & Family History Past Medical History?: Yes - Past Social History Smoking Status: Never Smoked - CARDIAC Hx Cardia Arrhythmia: Yes Hx Congestive Heart Failure: Yes Hx Hypertension: Yes Hx Pacemaker: Yes - PULMONARY Hx Pneumonia: Yes - NEUROLOGICAL Hx Neurological Disorder: No - HEENT Hx HEENT Problems: No - RENAL Hx Chronic Kidney Disease: No - ENDOCRINE/METABOLIC Hx Endocrine Disorders: Yes Hx Systemic Lupus Erythematosus: Yes - HEMATOLOGICAL/ONCOLOGICAL Hx Blood Disorders: No - INTEGUMENTARY Hx Dermatological Problems: No - MUSCULOSKELETAL/RHEUMATOLOGICAL Hx Falls: No - GASTROINTESTINAL Hx Gastrointestinal Disorders: No - GENITOURINARY/GYNECOLOGICAL Hx Genitourinary Disorders: No - PSYCHIATRIC Hx Substance Use: No - SURGICAL HISTORY Hx Surgeries: Yes Hx Section: Yes (X1) - ANESTHESIA Hx Anesthesia: Yes Hx Anesthesia Reactions: No Meds Allergies/Adverse Reactions: Allergies Allergy/AdvReac Type Severity Reaction Status Date / Time No Known Allergies Allergy Verified 10/10/18 11:42 - Medications Medications: Current Medications Carvedilol (Coreg) 25 mg PO BID [facility] Last Admin: 10/11/18 09:50 Dose: 25 mg Enalapril Maleate (Vasotec) 5 mg PO DAILY [facility] Last Admin: 10/11/18 09:49 Dose: 5 mg Famotidine (Pepcid) 20 mg PO DAILY [facility] Last Admin: 10/11/18 09:51 Dose: 20 mg Vancomycin/Sodium Chloride (Vancomycin 1 Gm/Ns 200 Ml) 1 gm in 200 mls @ 133 mls/hr IVPB Q12H [facility]; Protocol Stop: 10/15/18 18:01 Last Admin: 10/11/18 05:42 Dose: 133 mls/hr Piperacillin Sod/Tazobactam Sod (Zosyn 3.375 Gm Iv Premix) 3.375 gm in 50 mls @ 100 mls/hr IVPB Q8H [facility]; Protocol Last Admin: 10/11/18 05:08 Dose: 100 mls/hr Heparin Sodium/Sodium Chloride (Heparin 84060 Units/250ml 1/2 Normal Saline) 25,000 units in 250 mls @ 14.125 mls/hr IV .[id number] [facility]; Protocol Pneumococcal Polyvalent Vaccine (Pneumovax 23 Vaccine) 0.5 ml IM .ONCE ONE Stop: 10/12/18 10:44 Prednisone (Prednisone Tab) 15 mg PO DAILY [facility] Rosuvastatin Calcium (Crestor) 10 mg PO HS [facility] Last Admin: 10/10/18 22:10 Dose: 10 mg Tramadol HCl (Ultram) 50 mg PO Q6H PRN PRN Reason: Pain, severe (8-10) Last Admin: 10/11/18 09:48 Dose: 50 mg Results - Vital Signs Recent Vital Signs: Last Vital Signs Temp 98.1 F 10/11/18 07:46 Pulse 63 10/11/18 07:46 Resp 20 10/11/18 07:46 BP 110/70 10/11/18 09:50 Pulse Ox 97 10/11/18 07:46 - Labs Result Diagrams: 10/11/18 07:26 10/11/18 07:26 Labs: Laboratory Results - last 24 hr 10/10/18 10/10/18 10/10/18 14:39 14:39 14:39 WBC 3.7 L RBC 4.27 Hgb 13.0 Hct 37.9 MCV 88.9 MCH 30.5 MCHC 34.3 RDW 13.7 Plt Count 171 MPV 10.8 Neut % (Auto) 83.8 H Lymph % (Auto) 10.7 L Slope % (Auto) 4.4 Eos % (Auto) 0.6 Baso % (Auto) 0.5 Neut # (Auto) 3.1 Lymph # (Auto) 0.4 L Slope # (Auto) 0.2 Eos # (Auto) 0.0 Baso # (Auto) 0.0 ESR PT INR APTT Sodium 140 Potassium 4.2 Chloride 103 Carbon Dioxide 28 Anion Gap 14 BUN 14 Creatinine 0.7 Est GFR ( Amer) > 60 Est GFR (Non-Af Amer) > 60 Random Glucose 92 Calcium 8.6 Phosphorus Magnesium Total Bilirubin 1.0 AST 48 H D ALT 17 Alkaline Phosphatase 43 C-Reactive Protein Total Protein 7.4 Albumin 3.8 Globulin 3.5 Albumin/Globulin Ratio 1.1 Urine Color Yellow Urine Clarity Clear Urine pH 6.0 Ur Specific [place] 1.016 Urine Protein Negative Urine Glucose (UA) Normal Urine Ketones Negative Urine Blood Negative Urine Nitrate Negative Urine Bilirubin Negative Urine Urobilinogen Normal Ur Leukocyte Esterase 1+ H Urine WBC (Auto) 12 H Urine RBC (Auto) 1 Ur Squamous Epith Cells 2 Urine Opiates Screen Urine Methadone Screen Ur Barbiturates Screen Ur Phencyclidine Scrn Ur Amphetamines Screen U Benzodiazepines Scrn U Oth Cocaine Metabols U Cannabinoids Screen 10/10/18 10/10/18 10/11/18 14:39 17:11 07:26 WBC 3.4 L RBC 3.95 Hgb 12.1 Hct 35.3 MCV 89.2 MCH 30.5 MCHC 34.2 RDW 14.1 Plt Count 149 MPV 10.5 Neut % (Auto) 78.8 H Lymph % (Auto) 14.2 L Slope % (Auto) 5.6 Eos % (Auto) 0.9 Baso % (Auto) 0.5 Neut # (Auto) 2.7 Lymph # (Auto) 0.5 L Slope # (Auto) 0.2 Eos # (Auto) 0.0 Baso # (Auto) 0.0 ESR 103 H PT 12.2 INR 1.1 APTT 39.7 H Sodium Potassium Chloride Carbon Dioxide Anion Gap BUN Creatinine Est GFR ( Amer) Est GFR (Non-Af Amer) Random Glucose Calcium Phosphorus Magnesium Total Bilirubin AST ALT Alkaline Phosphatase C-Reactive Protein Total Protein Albumin Globulin Albumin/Globulin Ratio Urine Color Urine Clarity Urine pH Ur Specific [place] Urine Protein Urine Glucose (UA) Urine Ketones Urine Blood Urine Nitrate Urine Bilirubin Urine Urobilinogen Ur Leukocyte Esterase Urine WBC (Auto) Urine RBC (Auto) Ur Squamous Epith Cells Urine Opiates Screen Negative Urine Methadone Screen Negative Ur Barbiturates Screen Negative Ur Phencyclidine Scrn Negative Ur Amphetamines Screen Negative U Benzodiazepines Scrn Negative U Oth Cocaine Metabols Negative U Cannabinoids Screen Negative 10/11/18 07:26 WBC RBC Hgb Hct MCV MCH MCHC RDW Plt Count MPV Neut % (Auto) Lymph % (Auto) Slope % (Auto) Eos % (Auto) Baso % (Auto) Neut # (Auto) Lymph # (Auto) Slope # (Auto) Eos # (Auto) Baso # (Auto) ESR PT INR APTT Sodium 139 Potassium 3.6 Chloride 104 Carbon Dioxide 25 Anion Gap 13 BUN 16 Creatinine 1.3 H Est GFR ( Amer) 52 Est GFR (Non-Af Amer) 43 Random Glucose 100 Calcium 8.2 L Phosphorus 4.1 Magnesium 1.8 Total Bilirubin 0.7 AST 31 ALT 19 Alkaline Phosphatase 48 C-Reactive Protein 48.80 H Total Protein 6.6 Albumin 3.2 L Globulin 3.3 Albumin/Globulin Ratio 1.0 Urine Color Urine Clarity Urine pH Ur Specific [place] Urine Protein Urine Glucose (UA) Urine Ketones Urine Blood Urine Nitrate Urine Bilirubin Urine Urobilinogen Ur Leukocyte Esterase Urine WBC (Auto) Urine RBC (Auto) Ur Squamous Epith Cells Urine Opiates Screen Urine Methadone Screen Ur Barbiturates Screen Ur Phencyclidine Scrn Ur Amphetamines Screen U Benzodiazepines Scrn U Oth Cocaine Metabols U Cannabinoids Screen
[2018-10-11] MEDS ORDERED: Perflutren Lipid Microsphere 1.5 ML SUS IV ONE (12:49)
--- NOTE | 2018-10-11 13:11 | RAD ---
Chest x-ray single frontal view History: Congestive heart failure. Comparison: 02/26/2018 Findings: Mild venous congestion. Bibasilar breast and nipple shadows. Tortuous ectatic aorta. Mild cardiomegaly. Left-sided pacemaker. Degenerative changes in the spine and shoulders. Impression: Mild venous congestion. Bibasilar breast and nipple shadows. Tortuous ectatic aorta. Mild cardiomegaly. Left-sided pacemaker.
[2018-10-11 14:24] LABS: INR 1.1; PARTIAL THROMBOPLASTIN TIME 52.9 SECONDS (21-34); PROTHROMBIN TIME 12.1 SECONDS (9.7-12.2)
--- NOTE | 2018-10-11 14:44 | US ---
Date of service: 10/11/2018 PROCEDURE: Ultrasound of the Kidneys HISTORY: hx sle, narinder COMPARISON: Renal ultrasound 06/29/2017 TECHNIQUE: Sonogram of the kidneys. FINDINGS: RIGHT KIDNEY: Measures: 10.6 cm. Unremarkable in echogenicity. No shadowing renal stone, cyst, or hydronephrosis is identified. LEFT KIDNEY: Measures: 11.8 cm. Unremarkable in echogenicity. No shadowing renal stone, cyst, or hydronephrosis is identified. OTHER FINDINGS: Visualized portions of the aorta are normal in caliber. Visualized portions of the urinary bladder are unremarkable Visualized portions of the liver appear increased in echogenicity, likely representing fatty infiltration. IMPRESSION: Unremarkable kidneys sonographically. Visualized liver appears increased in echogenicity, likely representing fatty infiltration or hepatic parenchymal disease.
[2018-10-11 15:00] LABS: HEPATITIS B SURFACE AG Negative (NEGATIVE)
[2018-10-11 15:06] LABS: HEPATITIS A IGM NEGATIVE (NEGATIVE); HEPATITIS B CORE AB NEGATIVE (NEGATIVE)
[2018-10-11 15:18] LABS: HEPATITIS C ANTIBODY NEGATIVE (NEGATIVE)
[2018-10-11 15:29] LABS: IMMUNOGLOBULIN A 490.9 mg/dL (70.0-400.0); IMMUNOGLOBULIN G 1281.1 mg/dL (700.0-1600.0); IMMUNOGLOBULIN M 84.7 mg/dL (40.0-230.0)
[2018-10-11 15:30] LABS: COMPLEMENT C4 9.3 mg/dL (14.0-44.0)
[2018-10-11] MEDS ORDERED: Piperacill/Tazo 2.25gm in Dex 2.25 GM/50 ML BAG IVPB SCH (16:30)
--- NOTE | 2018-10-11 18:10 | CP.PCM.PN ---
Subjective - Date & Time of Evaluation Date of Evaluation: 10/11/18 Time of Evaluation: 08:00 - Subjective Subjective: afebrile cultures pending IV rx reordered narinder d/c vanco zosyn add teflaro ( mRSA and Gram neg coverage minus pseudomonas) await cultures Objective - Vital Signs/Intake and Output Vital Signs (last 24 hours): Temp Pulse Resp BP Pulse Ox 98.7 F 62 20 95/63 L 97 10/11/18 15:59 10/11/18 15:59 10/11/18 15:59 10/11/18 15:59 10/11/18 15:59 Intake and Output: 10/11/18 10/11/18 06:59 18:59 Intake Total 550 750 Balance 550 750 - Medications Medications: Current Medications Carvedilol (Coreg) 25 mg PO BID [facility] Enalapril Maleate (Vasotec) 5 mg PO DAILY [facility] Last Admin: 10/11/18 09:49 Dose: 5 mg Famotidine (Pepcid) 20 mg PO DAILY [facility] Last Admin: 10/11/18 09:51 Dose: 20 mg Vancomycin/Sodium Chloride (Vancomycin 1 Gm/Ns 200 Ml) 1 gm in 200 mls @ 133 mls/hr IVPB Q12H [facility]; Protocol Stop: 10/15/18 18:01 Last Admin: 10/11/18 05:42 Dose: 133 mls/hr Heparin Sodium/Sodium Chloride (Heparin 38718 Units/250ml 1/2 Normal Saline) 25,000 units in 250 mls @ 14.125 mls/hr IV .[id number] [facility]; Protocol Last Admin: 10/11/18 14:47 Dose: 18 units/kg/hr, 14.125 mls/hr Piperacillin Sod/Tazobactam Sod (Zosyn 2.25 Gm Iv Premix) 2.25 gm in 50 mls @ 100 mls/hr IVPB Q8H [facility]; Protocol Mycophenolate Mofetil (Cellcept) 1,000 mg PO BID [facility] Last Admin: 10/11/18 17:34 Dose: 1,000 mg Pneumococcal Polyvalent Vaccine (Pneumovax 23 Vaccine) 0.5 ml IM .ONCE ONE Stop: 10/12/18 10:44 Prednisone (Prednisone Tab) 15 mg PO DAILY [facility] Last Admin: 10/11/18 12:42 Dose: 15 mg Rosuvastatin Calcium (Crestor) 10 mg PO HS [facility] Last Admin: 10/10/18 22:10 Dose: 10 mg Tramadol HCl (Ultram) 50 mg PO Q6H PRN PRN Reason: Pain, severe (8-10) Last Admin: 10/11/18 17:38 Dose: 50 mg - Labs Labs: 10/11/18 07:26 10/11/18 07:26 PT 12.1 SECONDS (9.7-12.2) 10/11/18 14:08 INR 1.1 10/11/18 14:08 APTT 52.9 SECONDS (21-34) H D 10/11/18 14:08 - Constitutional Appears: Non-toxic, Chronically Ill - Head Exam Head Exam: ATRAUMATIC, NORMAL INSPECTION, NORMOCEPHALIC - Eye Exam Eye Exam: EOMI, Normal appearance, PERRL Pupil Exam: NORMAL ACCOMODATION, PERRL - ENT Exam ENT Exam: Mucous Membranes Moist, Normal Exam - Neck Exam Neck Exam: Full ROM, Normal Inspection. absent: Lymphadenopathy - Respiratory Exam Respiratory Exam: Clear to Ausculation Bilateral, NORMAL BREATHING PATTERN - Cardiovascular Exam Cardiovascular Exam: REGULAR RHYTHM, +S1, +S2. absent: Murmur - GI/Abdominal Exam GI & Abdominal Exam: Soft, Normal Bowel Sounds. absent: Tenderness - Rectal Exam Rectal Exam: Deferred - Exam Exam: NORMAL INSPECTION - Extremities Exam Extremities Exam: Full ROM, Normal Capillary Refill, Normal Inspection. absent: Joint Swelling, Pedal Edema - Back Exam Back Exam: NORMAL INSPECTION - Neurological Exam Neurological Exam: Alert, Awake, CN II-XII Intact, Normal Gait, Oriented x3 - Psychiatric Exam Psychiatric exam: Depressed - Skin Skin Exam: Normal Color, Warm Additional comments: larg ulcer left leg > right Assessment and Plan (1) Venous stasis ulcer Status: Acute (2) SLE (systemic lupus erythematosus related syndrome) Status: Chronic - Assessment and Plan (Free Text) Assessment: cont wound care IV antibiotics Dr Patel on board for rheum
[2018-10-11] MEDS: Ceftaroline 600 MG in Sodium Chloride 0.9% 100 ML IVPB SCH (19:51)
--- NOTE | 2018-10-12 00:34 | CARD ---
APPROVED REPORT Date of service: 10/10/2018 EKG Measurement Heart [id number] ID [id number] <Conclusion> Normal sinus rhythm Moderate voltage criteria for LVH, may be normal variant Inferior infarct, age undetermined Anterior infarct, age undetermined ST & T wave abnormality, consider lateral ischemia Abnormal ECG
[2018-10-12 06:32] LABS: BASO % 0.3 % (0.0-2.0); HEMOGLOBIN 12.2 g/dL (11.0-16.0); LYMPH # 0.3 K/uL (1.0-4.3); LYMPH % 10.6 % (20.0-40.0); MEAN CELL VOLUME 89.2 fL (81.0-99.0); MEAN CORPUSCULAR HEMOGLOBIN 30.5 pg (27.0-31.0); MEAN CORPUSCULAR HGB CONC 34.1 g/dL (33.0-37.0); MEAN PLATELET VOLUME 10.6 fL (7.2-11.7); MONO # 0.1 K/uL (0.0-0.8); MONO % 3.6 % (0.0-10.0); NEUT # 2.7 K/uL (1.8-7.0); NEUT % 85.5 % (50.0-75.0); NRBC % 0.1 % (0.0-2.0); RBC 4.01 Mil/uL (3.80-5.20); WHITE BLOOD COUNT 3.2 K/uL (4.8-10.8)
[2018-10-12 06:35] LABS: ALB/GLOB RATIO 1.1 (1.0-2.1); ALBUMIN 3.4 g/dL (3.5-5.0); CALCIUM 8.6 mg/dl (8.6-10.4)
[2018-10-12] MEDS: Ceftaroline 600 MG in Sodium Chloride 0.9% 100 ML IVPB SCH ×2 (07:11→19:05)
--- NOTE | 2018-10-12 07:42 | CP.PCM.PN ---
Subjective - Date & Time of Evaluation Date of Evaluation: 10/12/18 Time of Evaluation: 07:42 - Subjective Subjective: PGY2 Medicine progress note for Dr. Johnson Pt seen and examined at bedside. No acute complaints. Pt seen and examined at bedside. Denies fevers, chills, chest pain, SOB, palpitations, abdominal pain, n/v/d, headache, dizziness, lethargy, numbness or tingling, urinary complaints. Continues to endorse pain in the lower extremities, but well controlled with Tramadol. Objective - Vital Signs/Intake and Output Vital Signs (last 24 hours): Temp Pulse Resp BP Pulse Ox 98.3 F 64 20 105/67 96 10/12/18 00:00 10/12/18 00:00 10/12/18 00:00 10/12/18 00:00 10/12/18 00:00 Intake and Output: 10/12/18 10/12/18 06:59 18:59 Intake Total 742.8 Balance 742.8 - Medications Medications: Current Medications Carvedilol (Coreg) 25 mg PO BID [facility] Last Admin: 10/11/18 18:14 Dose: Not Given Enalapril Maleate (Vasotec) 5 mg PO DAILY [facility] Last Admin: 10/11/18 09:49 Dose: 5 mg Famotidine (Pepcid) 20 mg PO DAILY [facility] Last Admin: 10/11/18 09:51 Dose: 20 mg Heparin Sodium/Sodium Chloride (Heparin 92615 Units/250ml 1/2 Normal Saline) 25,000 units in 250 mls @ 14.125 mls/hr IV .[id number] [facility]; Protocol Last Admin: 10/11/18 14:47 Dose: 18 units/kg/hr, 14.125 mls/hr Ceftaroline Fosamil 600 mg/ (Sodium Chloride) 100 mls @ 100 mls/hr IVPB Q12H [facility]; Protocol Last Admin: 10/12/18 07:11 Dose: 100 mls/hr Mycophenolate Mofetil (Cellcept) 1,000 mg PO BID [facility] Last Admin: 10/11/18 17:34 Dose: 1,000 mg Pneumococcal Polyvalent Vaccine (Pneumovax 23 Vaccine) 0.5 ml IM .ONCE ONE Stop: 10/12/18 10:44 Prednisone (Prednisone Tab) 15 mg PO DAILY [facility] Last Admin: 10/11/18 12:42 Dose: 15 mg Rosuvastatin Calcium (Crestor) 10 mg PO HS [facility] Last Admin: 10/11/18 22:45 Dose: 10 mg Rosuvastatin Calcium (Crestor) 10 mg PO HS [facility] Last Admin: 10/11/18 22:46 Dose: 10 mg Tramadol HCl (Ultram) 50 mg PO Q6H PRN PRN Reason: Pain, severe (8-10) Last Admin: 10/11/18 17:38 Dose: 50 mg - Labs Labs: 10/12/18 06:13 10/12/18 06:13 PT 12.1 SECONDS (9.7-12.2) 10/11/18 14:08 INR 1.1 10/11/18 14:08 APTT 36.4 SECONDS (21-34) H D 10/12/18 06:13 - Head Exam Head Exam: ATRAUMATIC, NORMAL INSPECTION - Eye Exam Eye Exam: EOMI, Normal appearance, PERRL. absent: Periorbital tenderness Pupil Exam: NORMAL ACCOMODATION, PERRL. absent: Irregular, Unequal - ENT Exam ENT Exam: Mucous Membranes Moist, Normal Oropharynx - Respiratory Exam Respiratory Exam: Clear to Ausculation Bilateral, NORMAL BREATHING PATTERN. absent: Chest Wall Tenderness, Respiratory Distress - Cardiovascular Exam Cardiovascular Exam: REGULAR RHYTHM, +S1, +S2. absent: Gallop, Rubs - GI/Abdominal Exam GI & Abdominal Exam: Soft, Normal Bowel Sounds. absent: Rigid, Hyperactive Bowel Sounds - Extremities Exam Extremities Exam: Full ROM, Normal Inspection. absent: Joint Swelling, Pedal Edema - Back Exam Back Exam: NORMAL INSPECTION. absent: CVA tenderness (R), paraspinal tenderness - Neurological Exam Neurological Exam: Alert, Awake, Oriented x3 - Psychiatric Exam Psychiatric exam: Normal Affect, Normal Mood. absent: Depressed - Skin Skin Exam: Dry, Intact Assessment and Plan - Assessment and Plan (Free Text) Plan: Patient is a 53-year-old female with a history of HTN, CAD, SLE and CHF? who presents to the emergency department with her daughter for one month of lower leg ulcers, worse over the past week. 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 F/u vancomycin level morning 10/12 Tramadol 50 mg PO Q6H PRN for pain General surgery, Dr. Stewart, consulted in [facility] ED. Infectious disease, Dr. Maldonado, consulted. Rheumatology, Dr. Patel, consulted. Recommends anticoagulation ideally with warfarin, can bridge with lovenox or heparin. Pt on heparin gtt Wound care nurse, Arnie Beebe, consulted. Recommendations are to apply nickel thick amount of medihoney, then cover with xeroform and thick bulky dressings to be changed daily. F/u bilateral lower extremity venous and arterial duplex, blood culture x2, wound culture ESR elevated at 103, CRP elevated at 48.80 Started Prednisone 15 mg PO daily KAROL Hx SLE Creatinine increased from 0.7 to 1.3 within 24 hours. Zosyn and Vancomycin held Home ACEi held Nephrology, Dr. Johnston, consulted. Renal US is unremarkable. IgA: 490 Ig C3:69 c4:9.3 F/u rheumatoid factor and serum cryoglobulin levels, Imunnoglobulins Hepatitis panel is negative History of Systolic Heart Failure s/p AICD (03/2016) Hx CAD Echo 09/2017: Mod/severe systolic dysfunction with EF 30-35%, mild TR Myocardial perfusion test in 09/2017 shows large fixed anterior and apical defect suggestive of prior UT. EF 32%. No stress induced ischemia Continue home carvedilol 25 mg PO BID Hold home ASA due to plan to anticoagulate and for punch biopsy Plavix 75 mg PO daily Hold Enalapril 5 mg PO daily due to KAROL Crestor 10 mg PO QHS Lasix 40 mg PO QD on hold due to KAROL. Pt normotensive and no clinical signs of fluid overload CXR shows mild venous congestion. Bibasilar breast and nipple shadows. Tortuous ectatic aorta. Mild cardiomegaly. Left sided Pacemaker F/u echocardiogram Hx Hypertension Carvedilol as above 09/2017 HgA1C 5.6, Lipid panel - WNL FRANTZ-i on hold due to KAROL Hx SLE with lupus nephritis Dr. Patel, rheumatology, consulted. Cellcept 1g PO BID PPx: Pepcid 20 mg PO daily S[facility] contraindicated due to ulcers; Plavix and heparin gtt HHD Dispo: Waiting on final blood culture results Case discussed with Dr. Elizabeth Ziegler, PGY2
[2018-10-12] MEDS ORDERED: Pneumococcal 23-Valent Vaccine IM ONE (10:43)
--- NOTE | 2018-10-12 14:33 | CP.PCM.PN ---
Subjective - Date & Time of Evaluation Date of Evaluation: 10/12/18 Time of Evaluation: 14:25 - Subjective Subjective: RENAL: Iimpression: Acute Kidney Injury (N17.9) ? etiology. need work up for GN necrotic ulcer with livedo reticularis r/o vasculitis as cause chronic sys CHF with lvef 32%, hx of PPM/AICD, hypertension hyperlipidemia, SLE and lupus nephrits (f/up with Dr Patel), on prednisone and cellcept obesity Plan No acute need for renal replacement therapy at this time. UA w/ some wbc's otherwise not particularly active appearing - will repeat w/ UPCR as well. Hold ARB +dsDNA, low complements - suggest lupus activity - not clear if any renal involvement. F/u rheum. 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 obese female Vitals reviewed and noted as below Head; Atraumatic, normocephalic ENT: no ulcers no thrush. Tongue is midline. Oropharynx: no rash or ulcers. EYES: Pupils are equal, round and reactive to light accommodation. Eye muscles and extraocular movement intact. Sclera is anicteric. Neck; supple no lymphadenopathy, no thyromegaly or bruit Lungs: Normal respiratory rate/effort. Breath sounds bilateral equal and clear Heart: Normal rate. s1s2 normal. No rub or gallop. Extremities: no edema. No varicose veins Neurological: Patient is alert, awake and oriented to person, place and time. No focal deficit. Strength bilateral appropriate and equal Skin: Warm and dry. Normal turgor. Palpitation: Normal elasticity for age. ulcer left knee with necrotic/eschar. also with ulcers back of lower extremity both dressed there is also reticular livedo like rash on skin Abdomen: Abdomen is soft. Bowel sounds +. There is no abdominal tenderness, no guarding/rigidity no organomegaly Psych: normal insight and normal affect/mood MSK: no joint tenderness or swelling. Digits and nails normal, no deformity : kidney or bladder not palpable Labs/imaging reviewed. Past medical history, past surgical history, family history, social history, allergy reviewed and noted as below Family hx: no hx of CKD. Rest non-contributory Objective - Vital Signs/Intake and Output Vital Signs (last 24 hours): Temp Pulse Resp BP Pulse Ox 98.2 F 54 L 20 105/66 97 10/12/18 08:01 10/12/18 08:01 10/12/18 08:01 10/12/18 09:28 10/12/18 08:01 Intake and Output: 10/12/18 10/12/18 06:59 18:59 Intake Total 742.8 350 Balance 742.8 350 - Medications Medications: Current Medications Carvedilol (Coreg) 25 mg PO BID [facility] Last Admin: 10/12/18 09:28 Dose: 25 mg Enalapril Maleate (Vasotec) 5 mg PO DAILY [facility] Last Admin: 10/11/18 09:49 Dose: 5 mg Famotidine (Pepcid) 20 mg PO DAILY [facility] Last Admin: 10/12/18 09:28 Dose: 20 mg Heparin Sodium (Porcine) (Heparin) 5,000 units SC Q8 [facility] Ceftaroline Fosamil 600 mg/ (Sodium Chloride) 100 mls @ 100 mls/hr IVPB Q12H [facility]; Protocol Last Admin: 10/12/18 07:11 Dose: 100 mls/hr Mycophenolate Mofetil (Cellcept) 1,000 mg PO BID [facility] Last Admin: 10/12/18 09:28 Dose: 1,000 mg Prednisone (Prednisone Tab) 15 mg PO DAILY [facility] Last Admin: 10/12/18 09:28 Dose: 15 mg Rosuvastatin Calcium (Crestor) 10 mg PO HS [facility] Last Admin: 10/11/18 22:45 Dose: 10 mg Rosuvastatin Calcium (Crestor) 10 mg PO HS [facility] Last Admin: 10/11/18 22:46 Dose: 10 mg Tramadol HCl (Ultram) 50 mg PO Q6H PRN PRN Reason: Pain, severe (8-10) Last Admin: 10/12/18 08:44 Dose: 50 mg - Labs Labs: 10/12/18 06:13 10/12/18 06:13 PT 12.1 SECONDS (9.7-12.2) 10/11/18 14:08 INR 1.1 10/11/18 14:08 APTT 36.4 SECONDS (21-34) H D 10/12/18 06:13
[2018-10-12 21:22] LABS: SQUAMOUS EPITHIAL 4 /hpf (0-5); URINE BILIRUBIN NEGATIVE (NEGATIVE); URINE BLOOD NEGATIVE (NEGATIVE); URINE CLARITY Clear (Clear); URINE COLOR Yellow (YELLOW); URINE GLUCOSE (UA) NORMAL (Normal); URINE LEUKOCYTE ESTERASE NEG Leu/uL (Negative); URINE PROTEIN NEGATIVE (NEGATIVE); URINE UROBILINOGEN NORMAL mg/dL (0.2-1.0)
[2018-10-12 21:24] LABS: CREATININE, RANDOM URINE 89.6 mg/dL
[2018-10-13] MEDS: Ceftaroline 600 MG in Sodium Chloride 0.9% 100 ML IVPB SCH (06:15)
--- NOTE | 2018-10-13 07:28 | CP.PCM.PN ---
Subjective - Date & Time of Evaluation Date of Evaluation: 10/13/18 Time of Evaluation: 07:27 Objective - Vital Signs/Intake and Output Vital Signs (last 24 hours): Temp Pulse Resp BP Pulse Ox 97.9 F 58 L 20 110/72 97 10/13/18 00:00 10/13/18 00:00 10/13/18 00:00 10/13/18 00:00 10/13/18 00:00 Intake and Output: 10/13/18 10/13/18 06:59 18:59 Intake Total 610 Balance 610 - Medications Medications: Current Medications Carvedilol (Coreg) 25 mg PO BID [facility] Last Admin: 10/12/18 17:09 Dose: 25 mg Enalapril Maleate (Vasotec) 5 mg PO DAILY [facility] Last Admin: 10/11/18 09:49 Dose: 5 mg Famotidine (Pepcid) 20 mg PO DAILY [facility] Last Admin: 10/12/18 09:28 Dose: 20 mg Heparin Sodium (Porcine) (Heparin) 5,000 units SC Q8 [facility] Last Admin: 10/13/18 06:17 Dose: Not Given Ceftaroline Fosamil 600 mg/ (Sodium Chloride) 100 mls @ 100 mls/hr IVPB Q12H [facility]; Protocol Last Admin: 10/13/18 06:15 Dose: 100 mls/hr Mycophenolate Mofetil (Cellcept) 1,000 mg PO BID [facility] Last Admin: 10/12/18 17:09 Dose: 1,000 mg Prednisone (Prednisone Tab) 15 mg PO DAILY [facility] Last Admin: 10/12/18 09:28 Dose: 15 mg Rosuvastatin Calcium (Crestor) 10 mg PO HS [facility] Last Admin: 10/12/18 21:49 Dose: 10 mg Rosuvastatin Calcium (Crestor) 10 mg PO HS [facility] Last Admin: 10/12/18 23:28 Dose: Not Given Tramadol HCl (Ultram) 50 mg PO Q6H PRN PRN Reason: Pain, severe (8-10) Last Admin: 10/12/18 17:06 Dose: 50 mg - Labs Labs: 10/12/18 06:13 10/12/18 06:13 PT 12.1 SECONDS (9.7-12.2) 10/11/18 14:08 INR 1.1 10/11/18 14:08 APTT 36.4 SECONDS (21-34) H D 10/12/18 06:13 - Head Exam Head Exam: ATRAUMATIC, NORMAL INSPECTION - Eye Exam Eye Exam: EOMI, Normal appearance, PERRL. absent: Periorbital tenderness Pupil Exam: NORMAL ACCOMODATION, PERRL - ENT Exam ENT Exam: Mucous Membranes Moist, Normal Oropharynx - Respiratory Exam Respiratory Exam: Clear to Ausculation Bilateral, NORMAL BREATHING PATTERN. absent: Prolonged Expiratory Phase, Respiratory Distress - Cardiovascular Exam Cardiovascular Exam: REGULAR RHYTHM, +S1, +S2 - GI/Abdominal Exam GI & Abdominal Exam: Soft, Normal Bowel Sounds. absent: Rigid, Hyperactive Bowel Sounds - Back Exam Back Exam: NORMAL INSPECTION. absent: CVA tenderness (R), paraspinal tenderness - Neurological Exam Neurological Exam: Alert, Awake, Oriented x3 - Psychiatric Exam Psychiatric exam: Normal Affect, Normal Mood. absent: Depressed - Skin Skin Exam: Dry, Intact, Normal Color. absent: Pallor Assessment and Plan - Assessment and Plan (Free Text) Plan: Patient is a 53-year-old female with a history of HTN, CAD, SLE and CHF? who presents to the emergency department with her daughter for one month of lower leg ulcers, worse over the past week. 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 F/u vancomycin level morning 10/12 Tramadol 50 mg PO Q6H PRN for pain General surgery, Dr. Stewart, consulted in the [facility] ED. Infectious disease, Dr. Maldonado, consulted. Rheumatology, Dr. Patel, consulted. Recommends anticoagulation ideally with warfarin, can bridge with lovenox or heparin. Pt on heparin gtt Wound care nurse, Arnie Beebe, consulted. Recommendations are to apply nickel thick amount of medihoney, then cover with xeroform and thick bulky dressings to be changed daily. F/u bilateral lower extremity venous and arterial duplex, blood culture x2, wound culture ESR elevated at 103, CRP elevated at 48.80 Started Prednisone 15 mg PO daily KAROL Hx SLE Creatinine increased from 0.7 to 1.3 within 24 hours. Zosyn and Vancomycin held Home ACEi held Nephrology, Dr. Johnston, consulted. Renal US is unremarkable. IgA: 490 Ig C3:69 c4:9.3 F/u rheumatoid factor and serum cryoglobulin levels, Imunnoglobulins Hepatitis panel is negative History of Systolic Heart Failure s/p AICD (03/2016) Hx CAD Echo 09/2017: Mod/severe systolic dysfunction with EF 30-35%, mild TR Myocardial perfusion test in 09/2017 shows large fixed anterior and apical defect suggestive of prior OK. EF 32%. No stress induced ischemia Continue home carvedilol 25 mg PO BID Hold home ASA due to plan to anticoagulate and for punch biopsy Plavix 75 mg PO daily Hold Enalapril 5 mg PO daily due to KAROL Crestor 10 mg PO QHS Lasix 40 mg PO QD on hold due to KAROL. Pt normotensive and no clinical signs of fluid overload CXR shows mild venous congestion. Bibasilar breast and nipple shadows. Tortuous ectatic aorta. Mild cardiomegaly. Left sided Pacemaker F/u echocardiogram Hx Hypertension Carvedilol as above 09/2017 HgA1C 5.6, Lipid panel - WNL FRANTZ-i on hold due to KAROL Hx SLE with lupus nephritis Dr. Patel, rheumatology, consulted. Cellcept 1g PO BID PPx: Pepcid 20 mg PO daily SCD contraindicated due to ulcers; Plavix and heparin gtt HHD Dispo: Waiting on final blood culture results Case discussed with Dr. Elizabeth Ziegler, PGY2
[2018-10-13 07:50] VITALS: BP 122/81; PULSE 60; TEMP 97.5; O2SAT 98
[2018-10-13 08:36] LABS: BASO % 0.4 % (0.0-2.0); EOS % 0.1 % (0.0-4.0); HEMOGLOBIN 11.6 g/dL (11.0-16.0); LYMPH # 0.7 K/uL (1.0-4.3); LYMPH % 16.6 % (20.0-40.0); MEAN CELL VOLUME 89.9 fL (81.0-99.0); MEAN CORPUSCULAR HEMOGLOBIN 30.1 pg (27.0-31.0); MEAN CORPUSCULAR HGB CONC 33.4 g/dL (33.0-37.0); MEAN PLATELET VOLUME 11.1 fL (7.2-11.7); MONO # 0.1 K/uL (0.0-0.8); MONO % 3.1 % (0.0-10.0); NEUT # 3.1 K/uL (1.8-7.0); NEUT % 79.8 % (50.0-75.0); NRBC % 0.1 % (0.0-2.0); RBC 3.88 Mil/uL (3.80-5.20); RED CELL DISTRIBUTION WIDTH 14.3 % (11.5-14.5); WHITE BLOOD COUNT 3.9 K/uL (4.8-10.8)
[2018-10-13 08:52] LABS: ALB/GLOB RATIO 1.1 (1.0-2.1); ALBUMIN 3.2 g/dL (3.5-5.0); ALT/SGPT 20 U/L (9-52); AST/SGOT 26 U/L (14-36); BLOOD UREA NITROGEN 15 mg/dL (7-17); CALCIUM 8.7 mg/dl (8.6-10.4); GFR NON-AFRICAN AMERICAN 58
--- NOTE | 2018-10-13 12:12 | CP.PCM.CON ---
History of Present Illness - History of Present Illness History of Present Illness: Podiatry Consult Note - Dr. Valles: 66 y/o female with PMHx of SLE, HTN, Renal impairment seen and evaluated at the bedside for B/L leg ulcerations. Patient states that she started to develop rash in both LE a month ago. She states that 4 days ago her legs started to develop ulcerations L>R with bloody and watery discharge. She states that the ulcer sites are painful L>R. At first the pain was sever but now it's controlled with pain meds. She states that she got admitted to the hospital when she started develop the ulcerations. States she does occasionally experience tingling sensations inher LE. She states that she developed fever, chills, nausea and vomiting 4 days ago but now all of these symptoms improved. She denies any recent SOB. PMH: SLE, HTN, Renal impairment PSH: Pacemaker insertion. Allergies: NKDA SH: Denies tobacco, alcohol, or illicit drug use. Review of Systems - Review of Systems Review of Systems: S per HPI - Constitutional Constitutional: As Per HPI Past Patient History - Infectious Disease Hx of Infectious Diseases: None - Tetanus Immunizations Tetanus Immunization: Unknown - Past Medical History & Family History Past Medical History?: Yes - Past Social History Smoking Status: Never Smoked - CARDIAC Hx Cardia Arrhythmia: Yes Hx Congestive Heart Failure: Yes Hx Hypertension: Yes Hx Pacemaker: Yes - PULMONARY Hx Pneumonia: Yes - NEUROLOGICAL Hx Neurological Disorder: No - HEENT Hx HEENT Problems: No - RENAL Hx Chronic Kidney Disease: No - ENDOCRINE/METABOLIC Hx Endocrine Disorders: Yes Hx Systemic Lupus Erythematosus: Yes - HEMATOLOGICAL/ONCOLOGICAL Hx Blood Disorders: No - INTEGUMENTARY Hx Dermatological Problems: No - MUSCULOSKELETAL/RHEUMATOLOGICAL Hx Falls: No - GASTROINTESTINAL Hx Gastrointestinal Disorders: No - GENITOURINARY/GYNECOLOGICAL Hx Genitourinary Disorders: No - PSYCHIATRIC Hx Substance Use: No - SURGICAL HISTORY Hx Surgeries: Yes Hx Section: Yes (X1) - ANESTHESIA Hx Anesthesia: Yes Hx Anesthesia Reactions: No Meds Allergies/Adverse Reactions: Allergies Allergy/AdvReac Type Severity Reaction Status Date / Time No Known Allergies Allergy Verified 10/10/18 11:42 - Medications Medications: Current Medications Carvedilol (Coreg) 25 mg PO BID [facility] Last Admin: 10/13/18 10:18 Dose: 25 mg Enalapril Maleate (Vasotec) 5 mg PO DAILY [facility] Last Admin: 10/11/18 09:49 Dose: 5 mg Famotidine (Pepcid) 20 mg PO DAILY [facility] Last Admin: 10/13/18 10:18 Dose: 20 mg Heparin Sodium (Porcine) (Heparin) 5,000 units SC Q8 [facility] Last Admin: 10/13/18 06:17 Dose: Not Given Ceftaroline Fosamil 600 mg/ (Sodium Chloride) 100 mls @ 100 mls/hr IVPB Q12H [facility]; Protocol Last Admin: 10/13/18 06:15 Dose: 100 mls/hr Mycophenolate Mofetil (Cellcept) 1,000 mg PO BID [facility] Last Admin: 10/13/18 10:18 Dose: 1,000 mg Prednisone (Prednisone Tab) 15 mg PO DAILY [facility] Last Admin: 10/13/18 10:17 Dose: 15 mg Rosuvastatin Calcium (Crestor) 10 mg PO HS [facility] Last Admin: 10/12/18 23:28 Dose: Not Given Tramadol HCl (Ultram) 50 mg PO Q6H PRN PRN Reason: Pain, severe (8-10) Last Admin: 10/13/18 11:27 Dose: 50 mg Physical Exam - Constitutional Appears: No Acute Distress - Head Exam Head Exam: ATRAUMATIC, NORMOCEPHALIC - Extremities Exam Additional comments: B/L Lower extremity focused exam: Vasc: DP/PT pulses faintly palpable 2/4 B/L. Temperature gradient warm to cool on b/l from proximal to distal. Mild non pitting edema noted b/l. Neuro: protective sensation grossly intact. Derm: Left leg: open ulceration noted to back of the calf approx 13cm x 3cm x 0.2cm with 100% hard necrotic wound base. No probe to bone noted. No malodor, No purulence noted around the ulcer, no fluctuance. No meliton-wound erythema noted at present. right leg: open ulceration noted to back of the calf approx 6 cm x 3cm x 0.2cm with 100% hard necrotic wound base. No probe to bone noted. No malodor, No p urulence noted around the ulcer, no fluctuance. No meliton-wound erythema noted at present. MSK: Tenderness elicited to palpation of periulcerative areas L > R. MMT 5/5 to all groups b/l. - Neurological Exam Neurological exam: Alert, Oriented x3 - Psychiatric Exam Psychiatric exam: Normal Affect, Normal Mood Results - Vital Signs Recent Vital Signs: Last Vital Signs Temp 97.5 F L 10/13/18 07:49 Pulse 60 10/13/18 07:49 Resp 20 10/13/18 07:49 BP 122/81 10/13/18 10:18 Pulse Ox 98 10/13/18 07:49 - Labs Result Diagrams: 10/13/18 08:21 10/13/18 08:21 Labs: Laboratory Results - last 24 hr 10/11/18 10/11/18 10/12/18 14:12 22:54 21:08 WBC RBC Hgb Hct MCV MCH MCHC RDW Plt Count MPV Neut % (Auto) Lymph % (Auto) Metcalfe % (Auto) Eos % (Auto) Baso % (Auto) Neut # (Auto) Lymph # (Auto) [place]calfe # (Auto) Eos # (Auto) Baso # (Auto) ESR Sodium Potassium Chloride Carbon Dioxide Anion Gap BUN Creatinine Est GFR ( Amer) Est GFR (Non-Af Amer) Random Glucose Calcium Phosphorus Magnesium Total Bilirubin AST ALT Alkaline Phosphatase Total Protein Albumin Globulin Albumin/Globulin Ratio Urine Color Urine Clarity Urine pH Ur Specific [place] Urine Protein Urine Glucose (UA) Urine Ketones Urine Blood Urine Nitrate Urine Bilirubin Urine Urobilinogen Ur Leukocyte Esterase Urine WBC (Auto) Urine RBC (Auto) Ur Squamous Epith Cells Ur Random Creatinine 54 89.6 U Random Total Protein 15.0 H Urine Total Volume 0.6 Microalb/Creat Ratio 10 Double Strand DNA Ab 25 H 10/12/18 10/13/18 10/13/18 21:08 08:21 08:21 WBC 3.9 L RBC 3.88 Hgb 11.6 Hct 34.8 MCV 89.9 MCH 30.1 MCHC 33.4 RDW 14.3 Plt Count 160 MPV 11.1 Neut % (Auto) 79.8 H Lymph % (Auto) 16.6 L [place]calfe % (Auto) 3.1 Eos % (Auto) 0.1 Baso % (Auto) 0.4 Neut # (Auto) 3.1 Lymph # (Auto) 0.7 L [place] # (Auto) 0.1 Eos # (Auto) 0.0 Baso # (Auto) 0.0 ESR 98 H Sodium 141 Potassium 3.9 Chloride 105 Carbon Dioxide 26 Anion Gap 14 BUN 15 Creatinine 1.0 Est GFR ( Amer) > 60 Est GFR (Non-Af Amer) 58 Random Glucose 82 D Calcium 8.7 Phosphorus 3.7 Magnesium 2.0 Total Bilirubin 0.4 AST 26 ALT 20 Alkaline Phosphatase 46 Total Protein 6.3 Albumin 3.2 L Globulin 3.0 Albumin/Globulin Ratio 1.1 Urine Color Yellow Urine Clarity Clear Urine pH 5.0 Ur Specific [place] 1.013 Urine Protein Negative Urine Glucose (UA) Normal Urine Ketones Negative Urine Blood Negative Urine Nitrate Negative Urine Bilirubin Negative Urine Urobilinogen Normal Ur Leukocyte Esterase Neg Urine WBC (Auto) 7 H Urine RBC (Auto) 1 Ur Squamous Epith Cells 4 Ur Random Creatinine U Random Total Protein Urine Total Volume Microalb/Creat Ratio Double Strand DNA Ab Assessment & Plan - Assessment and Plan (Free Text) Assessment: 66 y/o female with PMHx of SLE, HTN, Renal impairment seen and evaluated at the bedside for B/L leg ulcerations. Plan: Patient seen and evaluated in the bedside Discussed plan with Dr. Valles Charts, labs and vitals reviewed: Afebrile, no leukocytosis noted B/L Tib-fibula X-ray: ulcerations bilaterally Wound Cx: Coag negative staph. Arterial Doppler: Pending report. Wound site cleaned with saline, dressed with Xeroform, Medihoney and DSD Ordered Silversorb to be added to the dressing starting tomorrow. ID onboard Dr. Maldonado, appreciate recommendations Podiatry will continue to follow patient while in house Thank you for the consult - Date & Time Date: 10/13/18 Time: 12:00
--- NOTE | 2018-10-13 12:38 | CP.PCM.DIS ---
Provider - Provider Date of Admission: 10/10/18 18:04 Attending physician: Basilio Johnson MD Consults: 10/10/18 14:39 General Surgery Consult Stat Comment: Consulting Provider: Yvan Stewart Consulting Physician: Yvan Stewart Reason for Consult: Left posterior distal LE eschar, open wound 10/10/18 16:30 Wound Care [Nursing Referral for Wound Care] Routine Comment: hx of lupus Physician Instructions: Reason For Exam: bilateral lower extremity ulcer and sacral ulcer 10/10/18 16:32 Infectious Disease Consult Routine Comment: Consulting Provider: Jamari Maldonado Consulting Physician: Jamari Maldonado Reason for Consult: lower extremity ulcers, tactile fever Physician Consult Routine Comment: Consulting Provider: Grey Patel Consulting Physician: Grey Patel Reason for Consult: hx of sle, possible antiphospholipid syndrome, lower ext ulcers 10/10/18 16:51 Wound Care [Nursing Referral for Wound Care] Routine Comment: Physician Instructions: Reason For Exam: please assess bilateral lower ext chronic venous u 10/10/18 20:43 Nursing Referral for Wound Care Routine Comment: Physician Instructions: Reason For Exam: painful open wound 10/11/18 10:28 Nephrology Consult Routine Comment: Consulting Provider: Ainsley Julien Consulting Physician: Ainsley Julien Reason for Consult: hx of sle, karol 10/12/18 07:39 Physician Consult Routine Comment: Consulting Provider: Cem Valles Consulting Physician: Cem Valles Reason for Consult: necrotic infected leg wound Time Spent in preparation of Discharge (in minutes): 45 Hospital Course - Lab Results Lab Results: Micro Results 10/10/18 23:03 Blood-Venous Blood Culture - Preliminary NO GROWTH AFTER 48 HOURS 10/10/18 23:03 Blood-Venous Blood Culture - Preliminary NO GROWTH AFTER 48 HOURS 10/11/18 06:42 Leg - Left Gram Stain - Preliminary 10/11/18 06:42 Leg - Left Wound Culture - Final Staphylococcus Sp Coag Neg Most Recent Lab Values WBC 3.9 K/uL (4.8-10.8) L 10/13/18 08:21 RBC 3.88 Mil/uL (3.80-5.20) 10/13/18 08:21 Hgb 11.6 g/dL (11.0-16.0) 10/13/18 08:21 Hct 34.8 % (34.0-47.0) 10/13/18 08:21 MCV 89.9 fL (81.0-99.0) 10/13/18 08:21 MCH 30.1 pg (27.0-31.0) 10/13/18 08:21 MCHC 33.4 g/dL (33.0-37.0) 10/13/18 08:21 RDW 14.3 % (11.5-14.5) 10/13/18 08:21 Plt Count 160 K/uL (130-400) 10/13/18 08:21 MPV 11.1 fL (7.2-11.7) 10/13/18 08:21 Neut % (Auto) 79.8 % (50.0-75.0) H 10/13/18 08:21 Lymph % (Auto) 16.6 % (20.0-40.0) L 10/13/18 08:21 [place] % (Auto) 3.1 % (0.0-10.0) 10/13/18 08:21 Eos % (Auto) 0.1 % (0.0-4.0) 10/13/18 08:21 Baso % (Auto) 0.4 % (0.0-2.0) 10/13/18 08:21 Neut # (Auto) 3.1 K/uL (1.8-7.0) 10/13/18 08:21 Lymph # (Auto) 0.7 K/uL (1.0-4.3) L 10/13/18 08:21 [place] # (Auto) 0.1 K/uL (0.0-0.8) 10/13/18 08:21 Eos # (Auto) 0.0 K/uL (0.0-0.7) 10/13/18 08:21 Baso # (Auto) 0.0 K/uL (0.0-0.2) 10/13/18 08:21 ESR 98 mm/hr (0-20) H 10/13/18 08:21 PT 12.1 SECONDS (9.7-12.2) 10/11/18 14:08 INR 1.1 10/11/18 14:08 APTT 36.4 SECONDS (21-34) H D 10/12/18 06:13 Sodium 141 mmol/L (132-148) 10/13/18 08:21 Potassium 3.9 mmol/L (3.6-5.2) 10/13/18 08:21 Chloride 105 mmol/L (98-107) 10/13/18 08:21 Carbon Dioxide 26 mmol/L (22-30) 10/13/18 08:21 Anion Gap 14 (10-20) 10/13/18 08:21 BUN 15 mg/dL (7-17) 10/13/18 08:21 Creatinine 1.0 mg/dL (0.7-1.2) 10/13/18 08:21 Est GFR ( Amer) > 60 10/13/18 08:21 Est GFR (Non-Af Amer) 58 10/13/18 08:21 Random Glucose 82 mg/dL (65-105) D 10/13/18 08:21 Calcium 8.7 mg/dl (8.6-10.4) 10/13/18 08:21 Phosphorus 3.7 mg/dL (2.5-4.5) 10/13/18 08:21 Magnesium 2.0 mg/dL (1.6-2.3) 10/13/18 08:21 Total Bilirubin 0.4 mg/dL (0.2-1.3) 10/13/18 08:21 AST 26 U/L (14-36) 10/13/18 08:21 ALT 20 U/L (9-52) 10/13/18 08:21 Alkaline Phosphatase 46 U/L (38-126) 10/13/18 08:21 C-Reactive Protein 48.80 mg/L (0.0-9.9) H 10/11/18 07:26 Total Protein 6.3 g/dL (6.3-8.3) 10/13/18 08:21 Albumin 3.2 g/dL (3.5-5.0) L 10/13/18 08:21 Globulin 3.0 gm/dL (2.2-3.9) 10/13/18 08:21 Albumin/Globulin Ratio 1.1 (1.0-2.1) 10/13/18 08:21 Urine Color Yellow (YELLOW) 10/12/18 21:08 Urine Clarity Clear (Clear) 10/12/18 21:08 Urine pH 5.0 (5.0-8.0) 10/12/18 21:08 Ur Specific [place] 1.013 (1.003-1.030) 10/12/18 21:08 Urine Protein Negative mg/dL (NEGATIVE) 10/12/18 21:08 Urine Glucose (UA) Normal mg/dL (Normal) 10/12/18 21:08 Urine Ketones Negative mg/dL (NEGATIVE) 10/12/18 21:08 Urine Blood Negative (NEGATIVE) 10/12/18 21:08 Urine Nitrate Negative (NEGATIVE) 10/12/18 21:08 Urine Bilirubin Negative (NEGATIVE) 10/12/18 21:08 Urine Urobilinogen Normal mg/dL (0.2-1.0) 10/12/18 21:08 Ur Leukocyte Esterase Neg Gonzalez/uL (Negative) 10/12/18 21:08 Urine WBC (Auto) 7 /hpf (0-5) H 10/12/18 21:08 Urine RBC (Auto) 1 /hpf (0-3) 10/12/18 21:08 Ur Squamous Epith Cells 4 /hpf (0-5) 10/12/18 21:08 Ur Random Creatinine 89.6 mg/dL 10/12/18 21:08 U Random Total Protein 15.0 mg/dL (0.0-12.0) H 10/12/18 21:08 Urine Total Volume 0.6 mg/dL 10/11/18 22:54 Microalb/Creat Ratio 10 (<30) 10/11/18 22:54 Random Vancomycin 8.5 ug/mL 10/12/18 06:13 Urine Opiates Screen Negative (NEGATIVE) 10/10/18 14:39 Urine Methadone Screen Negative (NEGATIVE) 10/10/18 14:39 Ur Barbiturates Screen Negative (NEGATIVE) 10/10/18 14:39 Ur Phencyclidine Scrn Negative (NEGATIVE) 10/10/18 14:39 Ur Amphetamines Screen Negative (NEGATIVE) 10/10/18 14:39 U Benzodiazepines Scrn Negative (NEGATIVE) 10/10/18 14:39 U Oth Cocaine Metabols Negative (NEGATIVE) 10/10/18 14:39 U Cannabinoids Screen Negative (NEGATIVE) 10/10/18 14:39 IgG 1281.1 mg/dL (700.0-1600.0) 10/11/18 14:12 IgA 490.9 mg/dL (70.0-400.0) H 10/11/18 14:12 IgM 84.7 mg/dL (40.0-230.0) 10/11/18 14:12 Proteinase 3 (PR3) <1.0 AI (<1.0) 10/11/18 14:08 Myeloperoxidase Ab <1.0 AI (<1.0) 10/11/18 14:08 Double Strand DNA Ab 25 IU/mL H 10/11/18 14:12 Complement C3 69.0 mg/dL (88.0-165.0) L 10/11/18 14:08 Complement C4 9.3 mg/dL (14.0-44.0) L 10/11/18 14:08 Hepatitis A IgM Ab Negative (NEGATIVE) 10/11/18 14:08 Hep Bs Antigen Negative (NEGATIVE) 10/11/18 14:08 Hep B Core IgM Ab Negative (NEGATIVE) 10/11/18 14:08 Hepatitis C Antibody Negative (NEGATIVE) 10/11/18 14:08 - Hospital Course Hospital Course: Patient is a 53-year-old female with a history of HTN, CAD, SLE and HFrEF who presents to the emergency department with her daughter for one month of lower leg ulcers. The patient states that the ulcers started as small and black and have become increasing larger on her legs and butt. The ulcers are very painful, itchy and burning. Last night one ulcer popped and released blood and watery fluid that smelled bad. The patient has never had this before. The patient saw Dr. [place] [employer] last week who gave her a cream for her legs, but that didnt help. Patient was diagnosed with lupus 6 years ago. The patient has never had blood clots or a stroke before. The patient has not traveled recently, has no sick contacts, changes in diet, or been hiking. The patient endorses fever that is helped by taking Tylenol 500 mg every 4 hours, night sweats, and chills. Additionally, the patient has had vomiting and nausea since last night, and one week of left lower extremity weakness. Denies vision changes, chest pain, SOB, headache, lightheadedness, dizziness, diarrhea, dysuria, headache, falls or syncope, hematuria, melena, hematochezia. PMH: HTN, CAD, SLE, HFrEF Surg: x1, defibrillator/pacemaker Allergies: NKDA Social: denies tobacco, alcohol, drugs Fam hx: denies Meds: Cellcept (for last 4 years), Prednisone 10 mg PO daily, Plavix 75 mg PO daily, Carvedilol 25 mg PO BID, ASA 81 mg PO daily, Lasix 40 mg PO daily, Pepcid 20 mg PO BID, Crestor 10 mg PO daily, Vasotec 5 mg PO daily PMD: Dr. Wong ([facility]) Rheum: [place] Cardio: unknown name, hasn't seen in over 1 year Hospital Course: Patient was found to have lower extremity ulcers while admitted. Patient was seen by infectious disease while admitted and they recommended iv antibiotics and cultures. Patient was on IV antibiotics, however was discontinued when patient developed an KAROL. Patient was seen by General Surgery while admitted as well. Patient had imaging of the lower extremities that excluded any DVT event. Patient had wound care applied to wounds with daily dressing changes. Patient developed an KAROL while on IV antibiotics and Zosyn and Vancomycin were held. Patient had an ultrasound of the kidneys that was unremarkable. Patient had immunoglobulin studies done while here. Rheumatology examined her and restarted her Cellcept and recommended iv anticoagulation. Patient was seen and examined and determined stable for discharge. Patient discharged with instructions to have a Punch biopsy done and to follow up with [facility]. Imaging: Renal US is unremarkable. CXR shows mild venous congestion. Bibasilar breast and nipple shadows. Tortuous ectatic aorta. Mild cardiomegaly. Left sided Pacemaker F/u echocardiogram Discharge Instructions: 1.F/u with PMD within 5 days of discharge. 2.F/u with [facility] for punch biopsy 3.Return to hospital for any new or worsening symptoms Medicatinos: 1.Plavix 75mg PO DAILY, #30, No refills 2.ASA 81MG PO DAILY, #30, No refills 3.Clindamycin 300mg PO Q8, #15, No refills 4.Coreg 25mg PO BID, #60, No refills 5.Crestor 10mg PO HS, #30, No refills 6. Prednisone 15mg PO DAILY, #30, No refills 7.Pepcid 20mg PO DAILY, #30, No refills 8. Vasotec 5MG PO DAILY, #30, No refills 9. Lasix 40mg PO DAILY, #30, No refills 10.Florastor 250mg PO DAILY, #30, No refills Plan discussed with Attending Dr. Johnson. Jose Ziegler, PGY2 Discharge Exam - Head Exam Head Exam: ATRAUMATIC, NORMOCEPHALIC - Extremities Exam Additional comments: Vasc: DP/PT pulses faintly palpable 2/4 B/L. Temperature gradient warm to cool on b/l from proximal to distal. Mild non pitting edema noted b/l. Neuro: protective sensation grossly intact. Derm: Left leg: open ulceration noted to back of the calf approx 13cm x 3cm x 0.2cm with 100% hard necrotic wound base. No probe to bone noted. No malodor, No purulence noted around the ulcer, no fluctuance. No meliton-wound erythema noted at present. right leg: open ulceration noted to back of the calf approx 6 cm x 3cm x 0.2cm with 100% hard necrotic wound base. No probe to bone noted. No malodor, No purulence noted around the ulcer, no fluctuance. No meliton-wound erythema noted at present. MSK: Tenderness elicited to palpation of periulcerative areas L > R. MMT 5/5 to all groups b/l. Discharge Plan - Discharge Medications Prescriptions: Aspirin [Ecotrin] 81 mg PO DAILY #30 tabec Carvedilol [Coreg] 25 mg PO BID #60 tab Clindamycin [Cleocin] 300 mg PO Q8 #15 cap Clopidogrel [Plavix] 75 mg PO DAILY #30 tab Enalapril Maleate [Vasotec] 5 mg PO DAILY #30 tab Famotidine [Pepcid] 20 mg PO DAILY #30 tab Furosemide [Lasix] 40 mg PO DAILY #30 tab predniSONE [Prednisone] 15 mg PO DAILY #30 tab Rosuvastatin Calcium [Crestor] 10 mg PO HS #30 tab Saccharomyces Boulardii [Florastor] 250 mg PO DAILY #30 capsule - Follow Up Plan Condition: GOOD Disposition: HOME/ ROUTINE Instructions: Clindamycin (Systemic), Wound Care (DC), Lactobacillus Additional Instructions: Follow up with Primary Medical Doctor within 5 days of discharge. Follow up with [facility] for punch biopsy. Return to hospital for any new or worsening symptoms Referrals: Basilio Johnson MD [Staff Provider] -
--- NOTE | 2018-10-13 13:29 | CP.PCM.PN ---
Subjective - Date & Time of Evaluation Date of Evaluation: 10/13/18 Time of Evaluation: 09:00 - Subjective Subjective: discussed on rounds patient wants to leave to seek treatment elsewherte d/c on oral rx follow up with Dr Patel poor prognosis Objective - Vital Signs/Intake and Output Vital Signs (last 24 hours): Temp Pulse Resp BP Pulse Ox 97.5 F L 60 20 122/81 98 10/13/18 07:49 10/13/18 07:49 10/13/18 07:49 10/13/18 10:18 10/13/18 07:49 Intake and Output: 10/13/18 10/13/18 06:59 18:59 Intake Total 610 110 Balance 610 110 - Medications Medications: Current Medications Carvedilol (Coreg) 25 mg PO BID [facility] Last Admin: 10/13/18 10:18 Dose: 25 mg Enalapril Maleate (Vasotec) 5 mg PO DAILY [facility] Last Admin: 10/11/18 09:49 Dose: 5 mg Famotidine (Pepcid) 20 mg PO DAILY [facility] Last Admin: 10/13/18 10:18 Dose: 20 mg Heparin Sodium (Porcine) (Heparin) 5,000 units SC Q8 [facility] Last Admin: 10/13/18 06:17 Dose: Not Given Ceftaroline Fosamil 600 mg/ (Sodium Chloride) 100 mls @ 100 mls/hr IVPB Q12H [facility]; Protocol Last Admin: 10/13/18 06:15 Dose: 100 mls/hr Mycophenolate Mofetil (Cellcept) 1,000 mg PO BID [facility] Last Admin: 10/13/18 10:18 Dose: 1,000 mg Prednisone (Prednisone Tab) 15 mg PO DAILY [facility] Last Admin: 10/13/18 10:17 Dose: 15 mg Rosuvastatin Calcium (Crestor) 10 mg PO HS [facility] Last Admin: 10/12/18 23:28 Dose: Not Given Tramadol HCl (Ultram) 50 mg PO Q6H PRN PRN Reason: Pain, severe (8-10) Last Admin: 10/13/18 11:27 Dose: 50 mg - Labs Labs: 10/13/18 08:21 10/13/18 08:21 PT 12.1 SECONDS (9.7-12.2) 10/11/18 14:08 INR 1.1 10/11/18 14:08 APTT 36.4 SECONDS (21-34) H D 10/12/18 06:13 Assessment and Plan (1) Venous stasis ulcer Status: Acute (2) SLE (systemic lupus erythematosus related syndrome) Status: Chronic
--- NOTE | 2018-10-13 14:12 | CP.PCM.PN ---
Subjective - Date & Time of Evaluation Date of Evaluation: 10/13/18 Time of Evaluation: 14:10 - Subjective Subjective: RENAL: Impression: Acute Kidney Injury (N17.9) ? etiology. need work up for GN necrotic ulcer with livedo reticularis r/o vasculitis as cause chronic sys CHF with lvef 32%, hx of PPM/AICD, hypertension hyperlipidemia, SLE and lupus nephrits (f/up with Dr Patel), on prednisone and cellcept obesity Plan No acute need for renal replacement therapy at this time. UA not active w/out any significant proteinuria +dsDNA, low complements - suggest lupus activity - etiology of skin lesion ? lupus vasculopathy? APLS? calciphylaxis? recc skin biopsy F/u rheum. d/w priamry team S: pain in b/l LE 's Physical Examination: General Appearance: Comfortable, in no acute respiratory distress, co-operative . obese female Vitals reviewed and noted as below Head; Atraumatic, normocephalic ENT: no ulcers no thrush. Tongue is midline. Oropharynx: no rash or ulcers. EYES: Pupils are equal, round and reactive to light accommodation. Eye muscles and extraocular movement intact. Sclera is anicteric. Neck; supple no lymphadenopathy, no thyromegaly or bruit Lungs: Normal respiratory rate/effort. Breath sounds bilateral equal and clear Heart: Normal rate. s1s2 normal. No rub or gallop. Extremities: no edema. No varicose veins Neurological: Patient is alert, awake and oriented to person, place and time. No focal deficit. Strength bilateral appropriate and equal Skin: Warm and dry. Normal turgor. Palpitation: Normal elasticity for age. ulcer left knee with necrotic/eschar. also with ulcers back of lower extremity both dressed there is also reticular livedo like rash on skin Abdomen: Abdomen is soft. Bowel sounds +. There is no abdominal tenderness, no guarding/rigidity no organomegaly Psych: normal insight and normal affect/mood MSK: no joint tenderness or swelling. Digits and nails normal, no deformity : kidney or bladder not palpable Labs/imaging reviewed. Past medical history, past surgical history, family history, social history, allergy reviewed and noted as below Family hx: no hx of CKD. Rest non-contributory Objective - Vital Signs/Intake and Output Vital Signs (last 24 hours): Temp Pulse Resp BP Pulse Ox 97.5 F L 60 20 122/81 98 10/13/18 07:49 10/13/18 07:49 10/13/18 07:49 10/13/18 10:18 10/13/18 07:49 Intake and Output: 10/13/18 10/13/18 06:59 18:59 Intake Total 610 110 Balance 610 110 - Medications Medications: Current Medications Carvedilol (Coreg) 25 mg PO BID [facility] Last Admin: 10/13/18 10:18 Dose: 25 mg Enalapril Maleate (Vasotec) 5 mg PO DAILY [facility] Last Admin: 10/11/18 09:49 Dose: 5 mg Famotidine (Pepcid) 20 mg PO DAILY [facility] Last Admin: 10/13/18 10:18 Dose: 20 mg Heparin Sodium (Porcine) (Heparin) 5,000 units SC Q8 [facility] Last Admin: 10/13/18 06:17 Dose: Not Given Ceftaroline Fosamil 600 mg/ (Sodium Chloride) 100 mls @ 100 mls/hr IVPB Q12H [facility]; Protocol Last Admin: 10/13/18 06:15 Dose: 100 mls/hr Mycophenolate Mofetil (Cellcept) 1,000 mg PO BID [facility] Last Admin: 10/13/18 10:18 Dose: 1,000 mg Prednisone (Prednisone Tab) 15 mg PO DAILY [facility] Last Admin: 10/13/18 10:17 Dose: 15 mg Rosuvastatin Calcium (Crestor) 10 mg PO HS [facility] Last Admin: 10/12/18 23:28 Dose: Not Given Tramadol HCl (Ultram) 50 mg PO Q6H PRN PRN Reason: Pain, severe (8-10) Last Admin: 10/13/18 11:27 Dose: 50 mg - Labs Labs: 10/13/18 08:21 10/13/18 08:21 PT 12.1 SECONDS (9.7-12.2) 10/11/18 14:08 INR 1.1 10/11/18 14:08 APTT 36.4 SECONDS (21-34) H D 10/12/18 06:13
--- NOTE | 2018-10-13 18:22 | CARD ---
APPROVED REPORT Date of service: 10/11/2018 EXAM: Two-dimensional and M-mode echocardiogram with Doppler, color Doppler with contrast. Other Information Quality : GoodRhythm : INDICATION Cardiac Disease: CAD Congestive Heart Failure Echo Enhancing Agent Indication: Endocardial border delineation Agent/Amount Used: Definity Surgery/Intervention Pacemaker: ICD/Pacemaker: RISK FACTORS Hypertension 2D DIMENSIONS IVSd0.5 (0.7-1.1cm)LVDd6.1 (3.9-5.9cm) PWd0.8 (0.7-1.1cm)LA Jatetl20 (18-58mL) LVDs5.7 (2.5-4.0cm)FS (%) 6.3 % LVEF (%)25.0 (>50%)LVEF (Mondragon's)26.14 % IVC0.00 cm M-Mode DIMENSIONS Left Atrium (MM)3.64 (2.5-4.0cm)IVSd0.62 (0.7-1.1cm) Aortic Root3.03 (2.2-3.7cm)LVDd7.98 (4.0-5.6cm) Aortic Cusp Exc.1.91 (1.5-2.0cm)PWd0.80 (0.7-1.1cm) FS (%) 13 %LVDs6.91 (2.0-3.8cm) LVEF (%)28 (>50%) Mitral Valve MV E Khtbeats73.4cm/sMV A Irfxtdoa33.0cm/sE/A ratio0.9 JUSC802.92 cm/s TDI Lateral E' Peak V7.32cm/sMedial E' Peak V6.09cm/sE/Lateral E'10.6 E/Medial E'12.7 Tricuspid Valve TR Peak Mirwqydv124rr/sTR Peak Gr.[id number] LEFT VENTRICLE The Left Ventricle is severely dilated. There is normal left ventricular wall thickness. Left ventricle systolic function is severely impaired. The Ejection Fraction is 20-25%. Significant regional wall motion abnormalities noted consistent with CAD. Anteroseptal akinesis noted. There is moderate to severe hypokinesis of the inferior and lateral LV wall. The left ventricular diastolic function is abnormal- Grade I-abnormal relaxation pattern. Contrast echo done on this does does not show left ventricle thrombus. RIGHT VENTRICLE The right ventricle is normal size. The right ventricular systolic function is normal. ATRIA The left atrium size is normal. The right atrium size is normal. AORTIC VALVE The aortic valve is mildly to moderately sclerotic. The aortic valve is trileaflet. There is trace aortic regurgitation. There is no aortic valvular stenosis. There is no aortic valvular vegetation. MITRAL VALVE Mitral annular calcification is mild to moderate. There is no evidence of mitral valve prolapse. There is no mitral valve stenosis. Mitral regurgitation is mild to moderate. TRICUSPID VALVE The tricuspid valve is normal in structure. There is mild tricuspid regurgitation. Right ventricular systolic pressure is estimated at 30-40 mmHg. There is no pulmonary hypertension. There is no tricuspid valve prolapse or vegetation. There is no tricuspid valve stenosis. PULMONIC VALVE The pulmonic valve is not well visualized. There is trace pulmonic valvular regurgitation. GREAT VESSELS The aortic root is normal in size. The IVC is normal in size and collapses >50% with inspiration. PERICARDIAL EFFUSION There is no pericardial effusion. There is no pleural effusion. <Conclusion> The Left Ventricle is severely dilated. Left ventricle systolic function is severely impaired. The Ejection Fraction is 20-25%. Significant regional wall motion abnormalities noted consistent with CAD. Anteroseptal akinesis noted. There is moderate to severe hypokinesis of the inferior and lateral LV wall. The left ventricular diastolic function is abnormal- Grade I-abnormal relaxation pattern. The right ventricle is normal size. The right ventricular systolic function is normal. The left atrium size is normal. The right atrium size is normal. There is trace aortic regurgitation. Mitral regurgitation is mild to moderate. There is mild tricuspid regurgitation. Contrast echo done on this patient does does not show left ventricle thrombus.
[2018-10-14] MEDS ORDERED: SILVASORB ANTIMICROBIAL WOUND GEL TOP SCH (10:00)
--- NOTE | 2018-10-15 09:45 | VASCLAB ---
Date of service: 10/11/2018 PROCEDURE: Lower Extremity Venous Duplex Exam. HISTORY: lower extremity ulcers, antiphospholipid syndrome PRIORS: None. TECHNIQUE: Bilateral common femoral, femoral, popliteal and posterior tibial, peroneal and great saphenous veins were evaluated. Flow was assessed with color Doppler, compressibility, assessment of phasic flow and augmentation response. Report prepared by Jamari Enriquez, ABI, RVT FINDINGS: RIGHT: 1. Common Femoral Vein: 1.1. Compressibility - Fully compressible: Thrombus - None : Flow - Phasic: Augmentation -Normal: Reflux - None. 2. Femoral Vein: 2.1. Compressibility - Fully compressible: Thrombus - None : Flow - Phasic: Augmentation -Normal: Reflux - None. 3. Popliteal Vein: 3.1. Compressibility - Fully compressible: Thrombus - None : Flow - Phasic: Augmentation -Normal: Reflux - None. 4. Posterior Tibial Vein: 4.1. Compressibility - Fully compressible: Thrombus - None: Flow - Phasic: Augmentation -Normal: Reflux - None. 5. Peroneal Vein: 5.1. Compressibility - Fully compressible: Thrombus - None: Flow - Phasic: Augmentation -Normal: Reflux - None. 6. Great Saphenous Vein: 6.1. Compressibility - Fully compressible: Thrombus - None: Flow - Phasic: Augmentation - Normal: Reflux - None. LEFT: 1. Common Femoral Vein: 1.1. Compressibility - Fully compressible: Thrombus - None: Flow - Phasic: Augmentation -Normal: Reflux - None. 2. Femoral Vein: 2.1. Compressibility - Fully compressible: Thrombus - None: Flow - Phasic: Augmentation -Normal: Reflux - None. 3. Popliteal Vein: 3.1. Compressibility - Fully compressible: Thrombus - None : Flow - Phasic: Augmentation -Normal: Reflux - None. 4. Posterior Tibial Vein: 4.1. Compressibility - Fully compressible: Thrombus - None: Flow - Phasic: Augmentation -Normal: Reflux - None. 5. Peroneal Vein: 5.1. Compressibility - Fully compressible: Thrombus - None: Flow - Phasic: Augmentation -Normal: Reflux - None. 6. Great Saphenous Vein: 6.1. Compressibility - Fully compressible: Thrombus - None: Flow - Phasic: Augmentation - Normal: Reflux - None. OTHER FINDINGS: Right: None significant. Left: None significant. IMPRESSION: Right: No evidence of deep or superficial vein thrombosis of the right lower extremity. Normal valve function noted of the right side. Left: No evidence of deep or superficial vein thrombosis of the left lower extremity. Normal valve function noted of the left side.
--- NOTE | 2018-10-15 09:45 | VASCLAB ---
Date of service: 10/11/2018 PROCEDURE: Lower Extremity Arterial Exam. HISTORY: lower extremity ulcers, antiphospholipid syndrome COMPARISON: None available. TECHNIQUE: Grayscale and duplex Doppler evaluation of the bilateral common femoral, femoral, profunda femoral, popliteal, posterior tibial, anterior tibial and dorsalis pedis arteries was performed. Report prepared by Jamari Enriquez, BS, RVT FINDINGS: RIGHT LOWER EXTREMITY: * Common Femoral Artery: Peak Systolic Velocity - 133: Doppler Waveform: Triphasic.: Plaque description - * Profunda Femoral Artery: Peak Systolic Velocity - 82: Doppler Waveform: Triphasic.: Plaque description - * Femoral Artery o Proximal Segment: Peak Systolic Velocity - 94: Doppler Waveform: Triphasic.: Plaque description - o Middle Segment: Peak Systolic Velocity - 104: Doppler Waveform: Triphasic.: Plaque description - o Distal Segment: Peak Systolic Velocity - 91: Doppler Waveform: Triphasic.: Plaque description - * Popliteal Artery o Proximal Segment: Peak Systolic Velocity - 78: Doppler Waveform: Triphasic.: Plaque description - o Middle Segment: Peak Systolic Velocity - 79: Doppler Waveform: Triphasic.: Plaque description - o Distal Segment: Peak Systolic Velocity - 85: Doppler Waveform: Triphasic.: Plaque description - * Posterior Tibial Artery: Peak Systolic Velocity - 95: Doppler Waveform: Triphasic.: Plaque description - * Anterior Tibial Artery: Peak Systolic Velocity - 99: Doppler Waveform: Triphasic.: Plaque description - * Dorsalis Pedis Artery: Peak Systolic Velocity - 23: Doppler Waveform: Triphasic.: Plaque description - LEFT LOWER EXTREMITY: * Common Femoral Artery: Peak Systolic Velocity - 133: Doppler Waveform: Triphasic.: Plaque description - * Profunda Femoral Artery: Peak Systolic Velocity - 77: Doppler Waveform: Triphasic.: Plaque description - * Femoral Artery o Proximal Segment: Peak Systolic Velocity - 91: Doppler Waveform: Triphasic.: Plaque description - o Middle Segment: Peak Systolic Velocity - 101: Doppler Waveform: Triphasic.: Plaque description - o Distal Segment: Peak Systolic Velocity - 109: Doppler Waveform: Triphasic.: Plaque description - * Popliteal Artery o Proximal Segment: Peak Systolic Velocity - 93: Doppler Waveform: Triphasic.: Plaque description - o Middle Segment: Peak Systolic Velocity - 93: Doppler Waveform: Triphasic.: Plaque description - o Distal Segment: Peak Systolic Velocity - 110: Doppler Waveform: Triphasic.: Plaque description - * Posterior Tibial Artery: Peak Systolic Velocity - 91: Doppler Waveform: Triphasic.: Plaque description - * Anterior Tibial Artery: Peak Systolic Velocity - 81: Doppler Waveform: Triphasic.: Plaque description - * Dorsalis Pedis Artery: Peak Systolic Velocity - 41: Doppler Waveform: Triphasic.: Plaque description - OTHER FINDINGS: Unable to image bilateral mid calves arteries due to bandage on both legs. IMPRESSION: There is no evidence of hemodynamically significant arterial insufficiency in both lower extremities.
[2018-10-15 11:12] LABS: RNP <1.0 AI (<1.0)
[2018-10-15 15:36] LABS: SOURCE: Plasma
[2018-10-16 01:46] LABS: CARDIOLIPIN AB (IGA) <11 APL (<=11); CARDIOLIPIN AB (IGG) <14 GPL (<=14); CARDIOLIPIN AB (IGM) <12 MPL (<=12)
[2018-10-16 11:04] LABS: B2 GLYCOPROTEIN I AB(IGA) 32 SAU (<=20); B2 GLYCOPROTEIN I AB(IGG) <9 SGU (<=20); B2 GLYCOPROTEIN I AB(IGM) <9 SMU (<=20)
[2018-10-16 21:41] LABS: PHOSPHATIDYLSERINE AB IGA <20 U/mL (<20); PHOSPHATIDYLSERINE AB IGG <10 U/mL (<10); PHOSPHATIDYLSERINE AB IGM <25 U/mL (<25)
== END 2018-10-13 14:35 | disposition home or self-care (01) | DRG 380 ==
LOC: C.ER 11:25 → UNDOADMOB 14:48 → INTOOBSV 14:48 → OBSVTOIN 14:48 → C.9E 14:48 → C.3T 15:21 → OBSVTOIN 18:04 → C.3T 18:04
PROVIDERS: ADMIT Internal Medicine; ATTEND Internal Medicine
DX: L97.829 Non-pressure chronic ulcer of other part of left lower leg with unspecified severity (principal); I87.2 Venous insufficiency (chronic) (peripheral); N17.9 Acute kidney failure, unspecified; D68.61 Antiphospholipid syndrome; I11.0 Hypertensive heart disease with heart failure; I50.22 Chronic systolic (congestive) heart failure; L97.819 Non-pressure chronic ulcer of other part of right lower leg with unspecified severity; L98.419 Non-pressure chronic ulcer of buttock with unspecified severity; M32.14 Glomerular disease in systemic lupus erythematosus; E78.5 Hyperlipidemia, unspecified; I25.10 Atherosclerotic heart disease of native coronary artery without angina pectoris; I77.819 Aortic ectasia, unspecified site; M32.9 Systemic lupus erythematosus, unspecified; Z87.01 Personal history of pneumonia (recurrent); Z98.891 History of uterine scar from previous surgery; Z95.810 Presence of automatic (implantable) cardiac defibrillator